=== PATIENT | female | born 1950 | race Caucasian/White ===

== ENCOUNTER → 2017-11-04 14:27 | Outpatient (CLI) | payer MEDICARE, OTHER, SELFPAY ==
[2017-11-02 13:32] VITALS: TEMP 37.2
[2017-11-04 15:28] LABS: Add Manual Diff / Slide Review NO; Basophils Percent Auto 0.9 % (0-2); Eosinophils Percent Auto 1.5 % (2-4); Hematocrit 38.1 % (36-46); Hemoglobin 12.8 g/dL (12.0-16.0); Lymphocytes Percent Auto 16.3 % (25-40); Mean Corpuscular HGB Conc 33.4 % (30-36); Mean Corpuscular Hemoglobin 27.9 PG (26-34); Mean Corpuscular Volume 83.5 fL (80-100); Monocytes Percent Auto 5.4 % (3-14); Neutrophils Absolute Auto 7400 /uL (3000-5900); Neutrophils Percent Auto 75.9 % (50-75); Platelet Count 253 X10^3/uL (150-400); Red Blood Cell Count 4.57 X10^6/uL (4.0-5.2); Red Cell Distribution Width 14.6 % (11.6-14.8); White Blood Cell Count 9.8 X10^3/uL (4.5-11.0)
[2017-11-04 16:10] LABS: Alanine Aminotransferase 33 IU/L (9-52); Albumin 4.4 g/dL (3.5-5.0); Albumin Globulin Ratio 1.3 (1.0-2.8); Alkaline Phosphatase 123 U/L (38-126); Aspartate Aminotransferase 33 IU/L (14-36); BUN Creatinine Ratio 26.3 (6-22); Bilirubin Total 0.7 mg/dL (0.2-1.3); Estimated Glomerular Filt Rate > 60.0 mL/min (>60); Globulin 3.4 g/dL (1.7-4.1); Glucose 133 mg/dL (80-110); HEMOLYSIS < 15 (0-50); Potassium 3.4 mmol/L (3.4-5.1); Sodium 140 mmol/L (137-145); Total Protein 7.8 g/dL (6.3-8.2)
[2017-11-04 17:48] LABS: Carcinoembryonic Antigen 0.9 ng/mL (0.1-3.0)
[2017-11-08 16:00] LABS: Cancer (Carbohydrate) Ag 19-9 194 U/mL (< 34); Cancer Antigen 27.29 94 U/mL (< 38)
--- NOTE | 2017-11-24 09:27 | ONC.NAV ---
Description: T/C-Care Coordination Activity: Called pt to tell her that this DAIRY CONSULTANT faxed an urgent referral request, along with her ONC records, to [facility], and that we requested a call back to confirm when her appointment will be. Offered coping and emotional support, as pt is really struggling with feeling she is not getting adequate and timely f/u and treatment for her cancer. She reports feeling better today, and thanked me for the support and efforts to expedite her care. Plan: DAIRY CONSULTANT will f/u with pt again after she has gone to her consult at [facility].
--- NOTE | 2019-01-02 12:38 | PC.NURSE ---
Patient's called 01/01 asking if patient could receive keytruda here as they are thinking they may not make it on time driving down to [place] for her next keytruda treatment. Appt with Dr. Salas was made and inquiries made with onc pharmacy whether we would be able to obtain the keytruda through their [employer] trial on time for administration on 01/03. As this was too tight for medication delivery and patient would otherwise need to pay for the medication, patient's decided to cancel appointment and try to get to [place] on time for her Tuesday appt there. Appt here was cancelled.
== END ==
PROVIDERS: Family Provider Family Medicine; PCP Family Medicine; Visit Provider Internal Medicine Hematology & Oncology
DX: R16.0 Hepatomegaly, not elsewhere classified (principal)
CPT/HCPCS: 36415; 80053; 82105; 82378; 85025; 86300; 86301

== ENCOUNTER → 2017-11-25 11:35 | Outpatient (CLI) | payer MEDICARE, OTHER, SELFPAY ==
--- NOTE | 2017-11-25 11:37 | DI.CT.S_ITS ---
PROCEDURE: CT CHEST ABD PEL W CON INDICATIONS: Malignant neoplam of liver TECHNIQUE: After the administration of oral and intravenous contrast, 5 mm thick sections acquired from the lung apices to the symphysis. 5 mm coronal and sagittal reformats were performed, with additional 7 mm coronal MIP reformats through the lungs. For radiation dose reduction, the following was used: automated exposure control, adjustment of mA and/or kV according to patient size. COMPARISON: [place], [place], [place] PET CT FUSION SKULL 2 THIGH, 11/16/2017, 13:46. FINDINGS: Image quality: Excellent. CHEST: Lungs and pleura: No acute airspace opacities. No pleural effusions or pneumothorax. Central and peripheral airways appear patent and normal in caliber. Mediastinum: Heart size is normal. No pericardial effusion. No mediastinal or hilar adenopathy by size criteria. Thoracic aorta and central pulmonary arteries are normal in size. Esophagus is normal in caliber. No hiatal hernia. Chest wall: Left-sided port with tip in the SVC. No axillary or supraclavicular adenopathy by size criteria. Thyroid gland is normal. ABDOMEN: Solid organs: Liver shows heterogeneous decreased attenuation compatible with fatty infiltration. Multiple intrahepatic mass lesions show heterogeneous enhancement. Lesions are increased in number compared to prior PET/CT imaging. The largest lesion in the central right lobe is estimated at 8.5 x 10.6 cm in diameter. Lesions in the hepatic dome measure one CM and 2 CM in size. Lesions in the anterior inferior pole of the right lobe measures 3.5 x 4.8 cm and 2.5 x 3.5 cm. Gallbladder is normal. Biliary system is non dilated. Pancreas enhances normally. Spleen is normal in size and enhancement. No adrenal nodules. Kidneys demonstrate normal size and enhancement, without hydronephrosis. Peritoneum and bowel: Bowel loops demonstrate normal wall thickness and caliber. Normal appendix. Colonic diverticulosis without diverticulitis. No free fluid or air. Nodes and vessels: No retroperitoneal or mesenteric adenopathy by size criteria. Aorta and inferior vena cava are normal in size. Miscellaneous: No ventral hernias. PELVIS: Genitourinary: Bladder wall thickness is normal. Uterus and ovaries appear normal. Miscellaneous: No inguinal hernias or adenopathy. Bones: No suspicious bony lesions. No vertebral body compression fractures. IMPRESSION: 1. Multifocal hepatic malignancies compatible with metastatic disease. Possibility of cholangiocarcinoma, multifocal hepatoma or other hepatic pathology can not be excluded. Dictated by: Max Mccormack M.D. on 11/25/2017 at 13:31 Approved by: Max Mccromack M.D. on 11/25/2017 at 13:45
== END ==
PROVIDERS: PCP Family Medicine; Visit Provider Internal Medicine Hematology & Oncology
DX: C22.9 Malignant neoplasm of liver, not specified as primary or secondary (principal)
CPT/HCPCS: 71260; 74177

== ENCOUNTER → 2018-01-25 10:24 | Outpatient (CLI) | payer MEDICARE, OTHER, SELFPAY ==
--- NOTE | 2018-01-25 10:33 | DI.CT.S_ITS ---
PROCEDURE: CT CHEST ABD PEL W CON INDICATIONS: restaging malignant neoplasm of liver TECHNIQUE: After the administration of oral and intravenous contrast, 5 mm thick sections acquired from the lung apices to the symphysis. 5 mm coronal and sagittal reformats were performed, with additional 7 mm coronal MIP reformats through the lungs. For radiation dose reduction, the following was used: automated exposure control, adjustment of mA and/or kV according to patient size. COMPARISON: [facility], [place], [place] FUSION SKULL 2 THIGH, 11/16/2017, 13:46. [facility], [place], CT CHEST ABD PEL W CON, 11/25/2017, 12:49. FINDINGS: Image quality: Excellent. CHEST: Lungs and pleura: No acute airspace opacities. A 2 mm subpleural nodule in the right lower lobe laterally, series 3/image 33, and is unchanged. No pleural effusions or pneumothorax. Central and peripheral airways appear patent and normal in caliber. Mediastinum: Heart size is normal. No pericardial effusion. No mediastinal or hilar adenopathy by size criteria. Thoracic aorta and central pulmonary arteries are normal in size. Esophagus is normal in caliber. No hiatal hernia. Chest wall: No axillary or supraclavicular adenopathy by size criteria. Thyroid gland appears normal. ABDOMEN: Solid organs: Multiple hepatic lesions are identified. The dominant mass in the right lobe of liver is slightly smaller measuring 7.3 x 9.5 cm compared to 8.5 x 10.[address] Just anterior to that is a smaller lesion measuring 1.8 x 2.8 cm now compared to 2.5 x 3.5 cm on prior. Lesion in the inferior pole anteriorly adjacent to the gallbladder measures 2.3 x 3.3 cm compared to 3.5 x 4.8 cm on prior. Most of the lesions appear better circumscribed but still show rim enhancement. Gallbladder appears clear. Biliary system is non dilated. Pancreas enhances normally. Spleen is normal in size and enhancement. No adrenal nodules. Kidneys demonstrate normal size and enhancement, without hydronephrosis. Small, irregular cortical cyst in the lateral margin of the upper pole left kidney is unchanged. Peritoneum and bowel: Bowel loops demonstrate normal wall thickness and caliber. Normal appendix. No free fluid or air. Nodes and vessels: No retroperitoneal or mesenteric adenopathy by size criteria. Atheromatous aorta shows calcifications and mural thrombus without aneurysm. The inferior vena cava is normal in size. Miscellaneous: Periumbilical hernia. PELVIS: Genitourinary: Bladder wall thickness is normal. Uterus appears atrophic. Miscellaneous: No inguinal hernias or adenopathy. Bones: No suspicious bony lesions. No vertebral body compression fractures. IMPRESSION: 1. Numerous intrahepatic mass lesions are stable to slightly smaller in size. No new lesions identified. No apparent adenopathy or remote metastases. 2. Colonic diverticulosis without diverticulitis. 3. Dictated by: Max Mccormack M.D. on 01/25/2018 at 12:36 Approved by: Max Mccormack M.D. on 01/25/2018 at 12:56
--- NOTE | 2018-03-03 09:54 | ONC.NAV ---
Description: Financial Assistance,Transfer of Records/Care Activity: Provided pt a check for reimbursement of the purchase of some hats. Provided a separate check to [facility] patient accounts for $30.00, to pay for an out of pocket co-pay that pt requested assistance with. Will plan to assist pt with her transition back to [place] at the end of this month. Plan to fax her medical records on 03/23 to her new provider.
--- NOTE | 2018-05-10 09:22 | ONC.NAV ---
Description: Financial Assistance Activity: Pt requested to use the rest of her available funds through the [facility] to help make a payment on an [facility] bill. SENIOR TELLER obtained a check for $308.00 and applied this in Patient Accounts. Pt was called by Lulu Peña yesterday and informed that this had been done.
== END ==
PROVIDERS: Family Provider Family Medicine; PCP Family Medicine; Visit Provider Internal Medicine Hematology & Oncology
DX: C22.9 Malignant neoplasm of liver, not specified as primary or secondary (principal); K57.90 Diverticulosis of intestine, part unspecified, without perforation or abscess without bleeding
CPT/HCPCS: 71260; 74177; Q9967

== ENCOUNTER 2018-03-22 10:00 | Oncology outpatient (ONC) | payer MEDICARE, OTHER, SELFPAY ==
[2017-11-02 13:32] VITALS: BP 143/83; PULSE 73; RESP 18; TEMP 37.2
--- NOTE | 2017-11-02 13:40 | ONC.NAV ---
Description: New Pt Intro Activity: Met with pt, her spouse and sister to introduce myself as the Pt Felix/AREA CAPTAIN, offer services card, and establish rapport. Discussed resources and support available, as well as the availability of the [employer], [employer], [facility] and Caregiver Support Group. Encouraged pt to contact me should she need assistance, have questions or need resources once her treatment plan has been established. Plan: F/u next appt.
--- NOTE | 2017-11-02 14:35 | ONC.CONS ---
History of Present Illness - Data of Consult Consult date: 11/02/17 Primary Care Provider: Messi Villagomez MD - Consult Narrative Narrative: Abeba Dean is a 67 year old female HEMATOLOGY/ONCOLOGY CONSULTATION NOTE PATIENT: Eric last month, prompting a visit to urgent care clinic on, Abeba Jeffers : 1950 DATE OF VISIT: 11/02/2017 PCP: ID: Ms. Knight is a 67-year-old woman was seen in consultation for recently diagnosed metastatic adenocarcinoma involving the liver. Status post CT-guided liver biopsy 10/19/2017 in [facility]. HPI: She presents to clinic today accompanied by her Fred and her sister Sandra. [place] in [place] [facility] [facility] and recently lived in [facility]. For the past couple of years she and her have been snow birds they tell me. She has a history of an umbilical hernia and this was causing pain and swelling which prompted a visit to local urgent care clinic. Diagnosed with cellulitis and was hospitalized with CT chest on 10/19/2017 showing hepatomegaly with a large heterogeneous low attenuation liver mass measuring 13.6 x 8.6 cm in the inferior right hepatic lobe. Several small retroperitoneal lymph nodes measuring up to 0.9 cm. Small mediastinal lymph nodes. A 2 mm nodule in the superior segment right lower lobe, nonspecific. No other clear evidence of primary site or additional metastatic involvement. She had lab work drawn. She was seen in consultation by GI, Infectious Disease and hematology oncology. Consultation note on 10/18/[address] Brittany Nassar recommended lab work, markers and biopsy of liver mass. She underwent CT-guided biopsy of the liver on 10/19/2017 with pathology showing metastatic adenocarcinoma, positive for CK7, negative for CK 20, CK 5/6, P 63, TTF 1, CDX2, ER and [place]-8. Differential includes primary adenocarcinoma from the lung, breast or upper GI/pancreatic or biliary origin. Pathologist Dr.Wael George at [facility], #[id number]. . . She was discharged on 10/20/2017 and has returned to this area for further workup and treatment. Here today with her , Fred and sister, Sandra. She denies any abdominal pain or other symptoms at this time. No nausea, bloating, change in bowel habits, melena or hematochezia. No nausea, vomiting or hematemesis. She has no personal history of malignancy. Most recent colonoscopy approximately 3 years ago showed a few polyps, non malignant. Mammogram also about 3 years ago. No new findings on self-breast exam. Former smoker from age [age] approximately, up to 2 pack per day and quit in 1997. Drinks wine on occasion. No history of liver disease, hepatitis, jaundice, pancreatitis. She denies headaches or new neurologic symptoms. She feels quite well now that her hernia and associated cellulitis have resolved. She finds it hard to believe that she has cancer given how well she feels. PMH: Hypertension Hyperlipidemia Former smoker quit 1997. Umbilical hernia. PSH: None. MEDICATION: Aspirin 81 mg daily Hydrochlorothiazide 50 mg daily Losartan 50 mg daily Lovastatin 40 mg daily Metoprolol 50 mg daily Pantoprazole 40 mg daily ALLERGIES: None SOCIAL HISTORY: FAMILY HISTORY: REVIEW OF SYSTEMS: PHYSICAL EXAM: CC: Messi Villagomez MD Patient reports pain?: No - Pain Details Pain Scale Used: Numeric (1 - 10) (0) Home Medications and Allergies Home Medications Medication Instructions Recorded Confirmed Type aspirin 81 mg PO DAILY 11/02/17 11/02/17 History hydrochlorothiazide 50 mg PO DAILY 11/02/17 11/02/17 History losartan 50 mg PO DAILY 11/02/17 11/02/17 History lovastatin 40 mg PO DAILY 11/02/17 11/02/17 History metoprolol tartrate 50 mg PO BID 11/02/17 11/02/17 History pantoprazole 40 mg PO DAILY 11/02/17 11/02/17 History Allergies Allergy/AdvReac Type Severity Reaction Status Date / Time Sulfa (Sulfonamide Allergy Mild DIARHHEA, Unverified 10/12/17 12:24 Antibiotics) N/V [SULFA (SULFONAMIDE UNSURE IF ANTIBIOTICS)] IT WAS SULFA Medical History - Medical, Surgical, Family History Medical History: Medical History (Last Updated 11/02/17 @ 14:34 by Murray Rodriguez MD) Malignant neoplasm of liver, not specified as primary or secondary - Social History Smoking Status: Former smoker Years smoked: 20 Quit Date: 07/04/97 Review of Systems Constitutional: able to conduct usual activities, normal activity level, no weight loss Eyes: no change in vision, no double vision, no discharge Ears, nose, mouth, throat: no headaches, no lightheadedness, no decreased hearing, no epistaxis, no apnea, no dental problems, no gingival bleeding, no sore throat Cardiovascular: no chest pain, no palpitations, no dyspnea on exertion, no orthopnea, no edema, no cyanosis Respiratory: cough, no pain with respirations, no shortness of breath, no wheezing, no stridor, no sputum production, no respiratory infections Gastrointestinal: no change in appetite, no dysphagia, no indigestion, no abdominal pain, no nausea, no vomiting, no hematemesis, no jaundice, no diarrhea, no change in bowel habits Genitourinary: no urgency, no frequency, no dysuria, no hematuria Musculoskeletal: no pain, no swelling, no redness, no weakness, no cramps Integumentary: no rash, no bleeding or bruising, no itching Neurological: no seizures, no paralysis, no tremor, no paresthesias, no memory loss, no speech disturbance, no motor difficulty Psychiatric: no attentional problems, no mood disturbance, no emotional problems, no depression Exam Vital signs: Last Vital Signs Temp 98.9 F 11/02/17 13:32 Pulse 73 11/02/17 13:32 Resp 18 11/02/17 13:32 BP 143/83 H 11/02/17 13:32 - Constitutional no acute distress, cooperative - Routine HEENT Exam Head: Present: normocephalic, atraumatic Eye: Present: EOMI, PERRL, conjunctivae pink. Absent: conjunctival icterus, periorbital swelling, nystagmus, exophthalmos, proptosis ENT: Present: mucous membranes moist, oropharynx clear, dentition normal - Routine Neck Exam Present: supple, full ROM, trachea midline. Absent: carotid bruit, lymphadenopathy, thyromegaly, tenderness, swelling - Routine Chest/Breast/Axilla Exam Chest wall exam standard: Absent: tenderness, mass Breast: Absent: tenderness, induration, mass, swelling Axillae: Absent: lymphadenopathy, mass, tenderness, rashes - Routine Respiratory Exam Present: Clear to auscultation bilaterally. Absent: decreased breath sounds, rales, respiratory distress, rhonchi, stridor, wheezes, crackles - Routine Cardiovascular Exam Present: RRR, S1, S2. Absent: murmur, S3 - Routine Abdominal Exam Present: soft, normoactive bowel sounds. Absent: tenderness, distended, rebound, guarding, organomegaly, wound Palpation/Percussion: Absent: hepatomegaly, splenomegaly - Routine Extremities Exam Present: full ROM. Absent: cyanosis, edema, calf tenderness, tenderness, joint swelling, pallor - Routine Back/Spine Exam Back/Spine: Present: full ROM. Absent: CVA tenderness, paraspinal tenderness - Routine Skin Exam Present: intact, dry. Absent: cyanosis, erythema, pallor, mottling, petechiae, jaundice, gangrene, ecchymosis - Routine Neurological Exam Present: alert, oriented X3, CN II-XII intact, moving all extremities, normal tone, vision grossly intact, hearing grossly intact, normal speech. Absent: sensory deficit, motor deficit, altered mental status, abnormal gait, nystagmus - Routine Psychiatric Exam Present: normal affect, normal thought process, good insight, good judgment Assessment and Plan - Time Spent with Patient IMPRESSION: 1. METASTATIC ADENOCARCINOMA OF LIVER, status post CT-guided liver biopsy 10/19/2017 in [facility]. 2. Small retroperitoneal lymph nodes, 0.9 cm. 3. Former smoker, quit 1997. 4. Umbilical hernia. 5. Colon polyps, non malignant. Colonoscopy approximately 3 years ago by self report. 6. Family history of colon cancer. Also spine in sister, age 23. I reviewed the diagnosis, clinical findings and extensive outside records from [place] including lab, imaging and pathology results with her, Minnie today. Reviewed recommendations regarding further diagnostic workup and treatment options. Findings at this point are most consistent with metastatic adenocarcinoma of unknown primary site. Presentation and immunohistochemistry results point to an upper GI or pancreaticobiliary primary as the most likely primary site. No reported pancreatic mass on outside CT. Consider metastatic cholangiocarcinoma though no pain, jaundice or symptoms of biliary obstruction. Lung and breast are also possible however there is no dominant or suspicious pulmonary mass on outside chest CT and breast exam today is unremarkable. She has no personal history of malignancy. Colonoscopy a few years ago showed non malignant polyps by her report. No other clinical symptoms or findings today to suggest a site of origin. No history of hepatitis-B, hepatitis-C or hepatic cirrhosis. We discussed indications and plan for further imaging to define extent of involvement and treatment plan. She asks about surgery and we discussed indications for primary resection depending on the diagnosis and site of origin. This would be a consideration if this represented metastatic carcinoma of the breast or colon in the absence of extrahepatic involvement. Immunohistochemistry studies performed in [place] do not identify a clear site of origin however. I would recommend further workup with labs and mammogram today. Further imaging with PET/CT and/or diagnostic CT as discussed. I offered referral for consultation and 2nd opinion though she is comfortable with the recommendations are for today and will await return visit to review the result before we decide on need for referral she says. She has no pain or other symptoms at this time and no pain medication is prescribed therefore. PLAN: 1. CBC, CMP, CEA, AFP, CA 19-9, CA 27.29. 2. Screening mammogram, bilateral. 3. PET/CT imaging. 4. Follow up with other providers as planned. 5. Return appointment with me in 1 week to review lab and imaging results. 6. Request outside tissue block and slides for local pathology review. Dictated by Murray Rodriguez MD Medical Oncology and Hematology
--- NOTE | 2017-11-02 15:02 | P.CONONC_ITS ---
History of Present Illness - Data of Consult Consult date: 11/02/17 Primary Care Provider: Messi Villagomez MD - Consult Narrative Narrative: Abeba Dean is a 67 year old female HEMATOLOGY/ONCOLOGY CONSULTATION NOTE PATIENT: Eric last month, prompting a visit to urgent care clinic on, Abeba Jeffers : 1950 DATE OF VISIT: 11/02/2017 PCP: ID: Ms. Knight is a 67-year-old woman was seen in consultation for recently diagnosed metastatic adenocarcinoma involving the liver. Status post CT-guided liver biopsy 10/19/2017 in [facility]. HPI: She presents to clinic today accompanied by her Fred and her sister Sandra. [place] [facility] [place] [facility] and recently lived in [facility]. For the past couple of years she and her have been snow birds they tell me. She has a history of an umbilical hernia and this was causing pain and swelling which prompted a visit to local urgent care clinic. Diagnosed with cellulitis and was hospitalized with CT chest on showing hepatomegaly with a large heterogeneous low attenuation liver mass measuring 13.6 x 8.6 cm in the inferior right hepatic lobe. Several small retroperitoneal lymph nodes measuring up to 0.9 cm. Small mediastinal lymph nodes. A 2 mm nodule in the superior segment right lower lobe, nonspecific. No other clear evidence of primary site or additional metastatic involvement. She had lab work drawn. She was seen in consultation by GI, Infectious Disease and hematology oncology. Consultation note on 10/18/[address] Brittany Nassar recommended lab work, markers and biopsy of liver mass. She underwent CT-guided biopsy of the liver on 10/19/2017 with pathology showing metastatic adenocarcinoma, positive for CK7, negative for CK 20, CK 5/6, P 63, TTF 1, CDX2 , ER and [place]-8. Differential includes primary adenocarcinoma from the lung, breast or upper GI/pancreatic or biliary origin. Pathologist Dr.Wael George at [facility], #[id number]. . . She was discharged on 10/20/2017 and has returned to this area for further workup and treatment. Here today with her , Fred and sister, Sandra. She denies any abdominal pain or other symptoms at this time. No nausea, bloating, change in bowel habits, melena or hematochezia. No nausea, vomiting or hematemesis. She has no personal history of malignancy. Most recent colonoscopy approximately 3 years ago showed a few polyps, non malignant. Mammogram also about 3 years ago. No new findings on self-breast exam. Former smoker from age [age] approximately, up to 2 pack per day and quit in 1997. Drinks wine on occasion. No history of liver disease, hepatitis, jaundice, pancreatitis. She denies headaches or new neurologic symptoms. She feels quite well now that her hernia and associated cellulitis have resolved. She finds it hard to believe that she has cancer given how well she feels. PMH: Hypertension Hyperlipidemia Former smoker quit 1997. Umbilical hernia. PSH: None. MEDICATION: Aspirin 81 mg daily Hydrochlorothiazide 50 mg daily Losartan 50 mg daily Lovastatin 40 mg daily Metoprolol 50 mg daily Pantoprazole 40 mg daily ALLERGIES: None SOCIAL HISTORY: FAMILY HISTORY: REVIEW OF SYSTEMS: PHYSICAL EXAM: CC: Messi Villagomez MD Patient reports pain?: No - Pain Details Pain Scale Used: Numeric (1 - 10) (0) Home Medications and Allergies Home Medications Medication Instructions Recorded Confirmed Type aspirin 81 mg PO DAILY 11/02/17 11/02/17 History hydrochlorothiazide 50 mg PO DAILY 11/02/17 11/02/17 History losartan 50 mg PO DAILY 11/02/17 11/02/17 History lovastatin 40 mg PO DAILY 11/02/17 11/02/17 History metoprolol tartrate 50 mg PO BID 11/02/17 11/02/17 History pantoprazole 40 mg PO DAILY 11/02/17 11/02/17 History Allergies Allergy/AdvReac Type Severity Reaction Status Date / Time Sulfa (Sulfonamide Allergy Mild DIARHHEA, Unverified 10/12/17 12:24 Antibiotics) N/V [SULFA (SULFONAMIDE UNSURE IF ANTIBIOTICS)] IT WAS SULFA Medical History - Medical, Surgical, Family History Medical History: Medical History (Last Updated 11/02/17 @ 14:34 by Murray Rodriguez MD) Malignant neoplasm of liver, not specified as primary or secondary - Social History Smoking Status: Former smoker Years smoked: 20 Quit Date: 07/04/97 Review of Systems Constitutional: able to conduct usual activities, normal activity level, no weight loss Eyes: no change in vision, no double vision, no discharge Ears, nose, mouth, throat: no headaches, no lightheadedness, no decreased hearing, no epistaxis, no apnea, no dental problems, no gingival bleeding, no sore throat Cardiovascular: no chest pain, no palpitations, no dyspnea on exertion, no orthopnea, no edema, no cyanosis Respiratory: cough, no pain with respirations, no shortness of breath, no wheezing, no stridor, no sputum production, no respiratory infections Gastrointestinal: no change in appetite, no dysphagia, no indigestion, no abdominal pain, no nausea, no vomiting, no hematemesis, no jaundice, no diarrhea , no change in bowel habits Genitourinary: no urgency, no frequency, no dysuria, no hematuria Musculoskeletal: no pain, no swelling, no redness, no weakness, no cramps Integumentary: no rash, no bleeding or bruising, no itching Neurological: no seizures, no paralysis, no tremor, no paresthesias, no memory loss, no speech disturbance, no motor difficulty Psychiatric: no attentional problems, no mood disturbance, no emotional problems , no depression Exam Vital signs: Last Vital Signs Temp 98.9 F 11/02/17 13:32 Pulse 73 11/02/17 13:32 Resp 18 11/02/17 13:32 BP 143/83 H 11/02/17 13:32 - Constitutional no acute distress, cooperative - Routine HEENT Exam Head: Present: normocephalic, atraumatic Eye: Present: EOMI, PERRL, conjunctivae pink. Absent: conjunctival icterus, periorbital swelling, nystagmus, exophthalmos, proptosis ENT: Present: mucous membranes moist, oropharynx clear, dentition normal - Routine Neck Exam Present: supple, full ROM, trachea midline. Absent: carotid bruit, lymphadenopathy, thyromegaly, tenderness, swelling - Routine Chest/Breast/Axilla Exam Chest wall exam standard: Absent: tenderness, mass Breast: Absent: tenderness, induration, mass, swelling Axillae: Absent: lymphadenopathy, mass, tenderness, rashes - Routine Respiratory Exam Present: Clear to auscultation bilaterally. Absent: decreased breath sounds, rales, respiratory distress, rhonchi, stridor, wheezes, crackles - Routine Cardiovascular Exam Present: RRR, S1, S2. Absent: murmur, S3 - Routine Abdominal Exam Present: soft, normoactive bowel sounds. Absent: tenderness, distended, rebound , guarding, organomegaly, wound Palpation/Percussion: Absent: hepatomegaly, splenomegaly - Routine Extremities Exam Present: full ROM. Absent: cyanosis, edema, calf tenderness, tenderness, joint swelling, pallor - Routine Back/Spine Exam Back/Spine: Present: full ROM. Absent: CVA tenderness, paraspinal tenderness - Routine Skin Exam Present: intact, dry. Absent: cyanosis, erythema, pallor, mottling, petechiae, jaundice, gangrene, ecchymosis - Routine Neurological Exam Present: alert, oriented X3, CN II-XII intact, moving all extremities, normal tone, vision grossly intact, hearing grossly intact, normal speech. Absent: sensory deficit, motor deficit, altered mental status, abnormal gait, nystagmus - Routine Psychiatric Exam Present: normal affect, normal thought process, good insight, good judgment Assessment and Plan - Time Spent with Patient IMPRESSION: 1. METASTATIC ADENOCARCINOMA OF LIVER, status post CT-guided liver biopsy 10/19 in [facility]. 2. Small retroperitoneal lymph nodes, 0.9 cm. 3. Former smoker, quit 1997. 4. Umbilical hernia. 5. Colon polyps, non malignant. Colonoscopy approximately 3 years ago by self report. 6. Family history of colon cancer. Also spine in sister, age 23. I reviewed the diagnosis, clinical findings and extensive outside records from [place] including lab, imaging and pathology results with her, Minnie today. Reviewed recommendations regarding further diagnostic workup and treatment options. Findings at this point are most consistent with metastatic adenocarcinoma of unknown primary site. Presentation and immunohistochemistry results point to an upper GI or pancreaticobiliary primary as the most likely primary site. No reported pancreatic mass on outside CT. Consider metastatic cholangiocarcinoma though no pain, jaundice or symptoms of biliary obstruction. Lung and breast are also possible however there is no dominant or suspicious pulmonary mass on outside chest CT and breast exam today is unremarkable. She has no personal history of malignancy. Colonoscopy a few years ago showed non malignant polyps by her report. No other clinical symptoms or findings today to suggest a site of origin. No history of hepatitis-B, hepatitis-C or hepatic cirrhosis. We discussed indications and plan for further imaging to define extent of involvement and treatment plan. She asks about surgery and we discussed indications for primary resection depending on the diagnosis and site of origin. This would be a consideration if this represented metastatic carcinoma of the breast or colon in the absence of extrahepatic involvement. Immunohistochemistry studies performed in [place] do not identify a clear site of origin however. I would recommend further workup with labs and mammogram today. Further imaging with PET/CT and/or diagnostic CT as discussed. I offered referral for consultation and 2nd opinion though she is comfortable with the recommendations are for today and will await return visit to review the result before we decide on need for referral she says. She has no pain or other symptoms at this time and no pain medication is prescribed therefore. PLAN: 1. CBC, CMP, CEA, AFP, CA 19-9, CA 27.29. 2. Screening mammogram, bilateral. 3. PET/CT imaging. 4. Follow up with other providers as planned. 5. Return appointment with me in 1 week to review lab and imaging results. 6. Request outside tissue block and slides for local pathology review. Dictated by Murray Rodriguez MD Medical Oncology and Hematology
--- NOTE | 2017-11-23 17:35 | ONC.PN ---
Assessment and Plan - Time Spent with Patient IMPRESSION: 1. Metastatic adenocarcinoma of the liver, status post CT-guided liver biopsy October 19, 2017 in [place], [place]. 2. Former smoker, quit in 1997. 3. Colon polyps, non malignant with most recent colonoscopy approximately 3 years ago. 4. Family history of colon cancer. Also sister with cancer involving the spine who at age 23. I reviewed lab results as well as PET/CT imaging from 11/16/2017 with her and her family today. Lab work shows mildly elevated glucose as well as AST/ALT. CA 19-9 and CA 27.29 are elevated with normal CEA and AFP. PET/CT shows abnormal FDG uptake associated with the hepatic masses seen on prior CT. Otherwise normal appearing pancreas, no adrenal nodules, gallbladder unremarkable with normal-appearing spleen, kidneys and bowel structures. No abnormal masses, adenopathy or FDG uptake seen in the chest or neck. Pathology results from [place] suggest differential including upper GI, pancreaticobiliary or other primary site. Markers for lung and breast were negative though cannot be definitively excluded. Mammogram last fall and current CT do not identify evident primary in the breast or lung. Primary treatment would be with systemic chemotherapy given the extent in size of hepatic metastases. She would not be an ideal candidate for ablated therapy given the findings as well as small retroperitoneal nodes seen on prior CT imaging. I do not have access to her previous CT images from [place] today. It may be useful to repeat diagnostic CT of the abdomen and pelvis for restaging and baseline to assess disease response. Regarding choice of treatment, several potential options including empiric therapy based on presentation and likely primary site of origin verses gene expression profiling with [facility] [place] or similar to look for further evidence of a primary site of origin as well as to seek actionable mutations in her treatment program. Empiric chemotherapy directed at the most likely site of origin in the upper GI or pancreaticobiliary region utilizing gemcitabine based program possibly in combination with capecitabine, docetaxel, as well as FOLFOX and others. No symptoms that would suggest gastric primary. Consider HER2 testing of biopsy. She does not otherwise fit into a clear treatment subgroup such as metastatic breast cancer from unknown primary site with axillary adenopathy or possible ovarian primary presenting with carcinomatosis. We will also need to check on any potential clinical trial treatment options which she could receive at our clinic in [facility]. We reviewed numerous other questions and related concerns including treatment logistics, scheduling, IV access, Port-A-Cath placement, laboratory monitoring, disease response assessment, restaging imaging studies, role for surgical resection of metastatic disease, palliative radiation therapy and others. She actually is living closer to our clinic in [facility] and would like to see if she can receive treatment there she says. Discussed referral for 2nd opinion and we will assist her in this so that it can be obtained expeditiously as she anticipate starting treatment soon. PLAN: 1. Meet with infusion nurse and clinic social studies teacher today. 2. CT chest/abdomen/pelvis prior to start of treatment. 3. Referral to [facility] for consultation and treatment recommendations. 4. Referral for Port-A-Cath placement. 5. Return appointment with me next week to review and finalize treatment plan. 6. Follow up with other providers as planned. 7. Request biopsy slides and blocks for review and further testing as noted above. DICTATED BY GILMAR WHITTEN MD MEDICAL ONCOLOGY AND HEMATOLOGY PN -Subjective Interval history: MEDICAL ONCOLOGY/HEMATOLOGY PROGRESS NOTE DATE OF SERVICE: November 23, 2017 NAME: Abeba Dean DATE OF : 1950 PCP: IDENTIFICATION: Ms. Dean is a 67-year-old woman with metastatic adenocarcinoma of the liver who returns to review lab and imaging studies. INTERVAL HISTORY: She returns in routine follow-up visit today accompanied by her Fred, sister Sandra and [id number]. Here to review labs and PET/CT results. She notes some increase in fatigue and other symptoms. She continues to denies significant abdominal pain, nausea or vomiting. No new chest pain, cough, dyspnea, bone pain, headache or new neurologic symptoms. She is a former smoker from age 17 to age 37, up to 2 packs per day and quit in 1997. She drinks wine on occasion. No history of liver disease, hepatitis, pancreatitis. Most recent colonoscopy about 3 years ago. PAST HISTORY/PRESENTATION: HPI: She has a history of an umbilical hernia and this was causing pain and swelling which prompted a visit to local urgent care clinic. Diagnosed with cellulitis and was hospitalized with CT chest on 10/19/2017 showing hepatomegaly with a large heterogeneous low attenuation liver mass measuring 13.6 x 8.6 cm in the inferior right hepatic lobe. Several small retroperitoneal lymph nodes measuring up to 0.9 cm. Small mediastinal lymph nodes. A 2 mm nodule in the superior segment right lower lobe, nonspecific. No other clear evidence of primary site or additional metastatic involvement. She had lab work drawn. She was seen in consultation by GI, Infectious Disease and hematology oncology. Consultation note on 10/18/[address] Brittany Nassar recommended lab work, markers and biopsy of liver mass. She underwent CT-guided biopsy of the liver on 10/19/2017 with pathology showing metastatic adenocarcinoma, positive for CK7, negative for CK 20, CK 5/6, P 63, TTF 1, CDX2, ER and [place]-8. Differential includes primary adenocarcinoma from the lung, breast or upper GI/pancreatic or biliary origin. Pathologist Dr.Wael George at [facility], #[id number]. . . She was discharged on 10/20/2017 and has returned to this area for further workup and treatment. Here today with her , Fred and sister, Sandra. She denies any abdominal pain or other symptoms at this time. No nausea, bloating, change in bowel habits, melena or hematochezia. No nausea, vomiting or hematemesis. She has no personal history of malignancy. Most recent colonoscopy approximately 3 years ago showed a few polyps, non malignant. Mammogram also about 3 years ago. No new findings on self-breast exam. Former smoker from age [age] approximately, up to 2 pack per day and quit in 1997. Drinks wine on occasion. No history of liver disease, hepatitis, jaundice, pancreatitis. She denies headaches or new neurologic symptoms. She feels quite well now that her hernia and associated cellulitis have resolved. She finds it hard to believe that she has cancer given how well she feels. PAST MEDICAL HISTORY: HYPERTENSION, HYPERLIPIDEMIA, FORMER SMOKER QUIT IN 1997, UMBILICAL HERNIA. - Patient Self-Reported Symptoms SR ears, nose, mouth, throat issues: Nose bleeds SR respiratory issues: Cough SR Musculoskeletal issues: Muscle weakness - Additional ROS Additional ROS: REVIEW OF SYSTEMS General: No fever, night sweats or weight loss. HEENT: No headache, vision change or dysphagia. Respiratory: Negative. Cardiac: No chest pain, PND or orthopnea. GI: As above. : Stable. Musculoskeletal: Negative. Neurologic: Negative. Results - Imaging Additional studies: Procedures Replacement of Right Knee Joint with Synthetic Substitute, Cemented, Open Approach (05/05/15) Home Medications and Allergies Home Medications Medication Instructions Recorded Confirmed Type aspirin 81 mg PO DAILY 11/02/17 11/02/17 History hydrochlorothiazide 50 mg PO DAILY 11/02/17 11/02/17 History losartan 50 mg PO DAILY 11/02/17 11/02/17 History lovastatin 40 mg PO DAILY 11/02/17 11/02/17 History metoprolol tartrate 50 mg PO BID 11/02/17 11/02/17 History pantoprazole 40 mg PO DAILY 11/02/17 11/02/17 History Allergies Allergy/AdvReac Type Severity Reaction Status Date / Time Sulfa (Sulfonamide Allergy Mild DIARHHEA, Unverified 10/12/17 12:24 Antibiotics) N/V [SULFA (SULFONAMIDE UNSURE IF ANTIBIOTICS)] IT WAS SULFA Exam Vital signs: Last Vital Signs Temp 98.9 F 11/02/17 13:32 Pulse 73 11/02/17 13:32 Resp 18 11/02/17 13:32 BP 143/83 H 11/02/17 13:32 - Constitutional positive no acute distress, positive cooperative - Routine HEENT Exam Head: Present: normocephalic, atraumatic. Absent: cushingoid faces Eye: Present: EOMI, PERRL. Absent: conjunctival icterus, scleral injection, periorbital ecchymosis, periorbital swelling - Routine Neck Exam Present: supple, full ROM - Routine Respiratory Exam Absent: accessory muscle use, respiratory distress - Routine Extremities Exam Absent: edema - Routine Skin Exam Present: intact. Absent: jaundice, rash - Routine Neurological Exam Present: alert, oriented X3, moving all extremities, normal speech. Absent: altered mental status, abnormal gait - Routine Psychiatric Exam Present: normal affect, normal thought process, good judgment, anxious
--- NOTE | 2017-11-23 17:49 | P.PNONC_ITS ---
Assessment and Plan - Time Spent with Patient IMPRESSION: 1. Metastatic adenocarcinoma of the liver, status post CT-guided liver biopsy October 19, 2017 in [place], [place]. 2. Former smoker, quit in 1997. 3. Colon polyps, non malignant with most recent colonoscopy approximately 3 years ago. 4. Family history of colon cancer. Also sister with cancer involving the spine who at age 23. I reviewed lab results as well as PET/CT imaging from 11/16/2017 with her and her family today. Lab work shows mildly elevated glucose as well as AST/ALT. CA 19-9 and CA 27.29 are elevated with normal CEA and AFP. PET/CT shows abnormal FDG uptake associated with the hepatic masses seen on prior CT. Otherwise normal appearing pancreas, no adrenal nodules, gallbladder unremarkable with normal-appearing spleen, kidneys and bowel structures. No abnormal masses, adenopathy or FDG uptake seen in the chest or neck. Pathology results from [place] suggest differential including upper GI, pancreaticobiliary or other primary site. Markers for lung and breast were negative though cannot be definitively excluded. Mammogram last fall and current CT do not identify evident primary in the breast or lung. Primary treatment would be with systemic chemotherapy given the extent in size of hepatic metastases. She would not be an ideal candidate for ablated therapy given the findings as well as small retroperitoneal nodes seen on prior CT imaging. I do not have access to her previous CT images from [place] today. It may be useful to repeat diagnostic CT of the abdomen and pelvis for restaging and baseline to assess disease response. Regarding choice of treatment, several potential options including empiric therapy based on presentation and likely primary site of origin verses gene expression profiling with [facility] or similar to look for further evidence of a primary site of origin as well as to seek actionable mutations in her treatment program. Empiric chemotherapy directed at the most likely site of origin in the upper GI or pancreaticobiliary region utilizing gemcitabine based program possibly in combination with capecitabine, docetaxel, as well as FOLFOX and others. No symptoms that would suggest gastric primary. Consider HER2 testing of biopsy. She does not otherwise fit into a clear treatment subgroup such as metastatic breast cancer from unknown primary site with axillary adenopathy or possible ovarian primary presenting with carcinomatosis. We will also need to check on any potential clinical trial treatment options which she could receive at our clinic in [facility]. We reviewed numerous other questions and related concerns including treatment logistics, scheduling, IV access, Port-A-Cath placement, laboratory monitoring, disease response assessment, restaging imaging studies, role for surgical resection of metastatic disease, palliative radiation therapy and others. She actually is living closer to our clinic in [facility] and would like to see if she can receive treatment there she says. Discussed referral for 2nd opinion and we will assist her in this so that it can be obtained expeditiously as she anticipate starting treatment soon. PLAN: 1. Meet with infusion nurse and clinic oncology social work today. 2. CT chest/abdomen/pelvis prior to start of treatment. 3. Referral to [facility] for consultation and treatment recommendations. 4. Referral for Port-A-Cath placement. 5. Return appointment with me next week to review and finalize treatment plan. 6. Follow up with other providers as planned. 7. Request biopsy slides and blocks for review and further testing as noted above. DICTATED BY GILMAR WHITTEN MD MEDICAL ONCOLOGY AND HEMATOLOGY PN -Subjective Interval history: MEDICAL ONCOLOGY/HEMATOLOGY PROGRESS NOTE DATE OF SERVICE: November 23, 2017 NAME: Abeba Dean DATE OF : 1950 PCP: IDENTIFICATION: Ms. Dean is a 67-year-old woman with metastatic adenocarcinoma of the liver who returns to review lab and imaging studies. INTERVAL HISTORY: She returns in routine follow-up visit today accompanied by her Fred, sister Sandra and [id number]. Here to review labs and PET/CT results. She notes some increase in fatigue and other symptoms. She continues to denies significant abdominal pain, nausea or vomiting. No new chest pain, cough, dyspnea, bone pain, headache or new neurologic symptoms. She is a former smoker from age 17 to age 37, up to 2 packs per day and quit in 1997. She drinks wine on occasion. No history of liver disease, hepatitis, pancreatitis. Most recent colonoscopy about 3 years ago. PAST HISTORY/PRESENTATION: HPI: She has a history of an umbilical hernia and this was causing pain and swelling which prompted a visit to local urgent care clinic. Diagnosed with cellulitis and was hospitalized with CT chest on 10/19/2017 showing hepatomegaly with a large heterogeneous low attenuation liver mass measuring 13.6 x 8.6 cm in the inferior right hepatic lobe. Several small retroperitoneal lymph nodes measuring up to 0.9 cm. Small mediastinal lymph nodes. A 2 mm nodule in the superior segment right lower lobe, nonspecific. No other clear evidence of primary site or additional metastatic involvement. She had lab work drawn. She was seen in consultation by GI, Infectious Disease and hematology oncology. Consultation note on 10/18/[address] Brittany Nassar recommended lab work, markers and biopsy of liver mass. She underwent CT-guided biopsy of the liver on 10/19/2017 with pathology showing metastatic adenocarcinoma, positive for CK7, negative for CK 20, CK 5/6, P 63, TTF 1, CDX2 , ER and [place]-8. Differential includes primary adenocarcinoma from the lung, breast or upper GI/pancreatic or biliary origin. Pathologist Dr.Wael George at [facility], #[id number]. . . She was discharged on 10/20/2017 and has returned to this area for further workup and treatment. Here today with her , Fred and sister, Sandra. She denies any abdominal pain or other symptoms at this time. No nausea, bloating, change in bowel habits, melena or hematochezia. No nausea, vomiting or hematemesis. She has no personal history of malignancy. Most recent colonoscopy approximately 3 years ago showed a few polyps, non malignant. Mammogram also about 3 years ago. No new findings on self-breast exam. Former smoker from age [age] approximately, up to 2 pack per day and quit in 1997. Drinks wine on occasion. No history of liver disease, hepatitis, jaundice, pancreatitis. She denies headaches or new neurologic symptoms. She feels quite well now that her hernia and associated cellulitis have resolved. She finds it hard to believe that she has cancer given how well she feels. PAST MEDICAL HISTORY: HYPERTENSION, HYPERLIPIDEMIA, FORMER SMOKER QUIT IN 1997, UMBILICAL HERNIA. - Patient Self-Reported Symptoms SR ears, nose, mouth, throat issues: Nose bleeds SR respiratory issues: Cough SR Musculoskeletal issues: Muscle weakness - Additional ROS Additional ROS: REVIEW OF SYSTEMS General: No fever, night sweats or weight loss. HEENT: No headache, vision change or dysphagia. Respiratory: Negative. Cardiac: No chest pain, PND or orthopnea. GI: As above. : Stable. Musculoskeletal: Negative. Neurologic: Negative. Results - Imaging Additional studies: Procedures Replacement of Right Knee Joint with Synthetic Substitute, Cemented, Open Approach (05/05/15) Home Medications and Allergies Home Medications Medication Instructions Recorded Confirmed Type aspirin 81 mg PO DAILY 11/02/17 11/02/17 History hydrochlorothiazide 50 mg PO DAILY 11/02/17 11/02/17 History losartan 50 mg PO DAILY 11/02/17 11/02/17 History lovastatin 40 mg PO DAILY 11/02/17 11/02/17 History metoprolol tartrate 50 mg PO BID 11/02/17 11/02/17 History pantoprazole 40 mg PO DAILY 11/02/17 11/02/17 History Allergies Allergy/AdvReac Type Severity Reaction Status Date / Time Sulfa (Sulfonamide Allergy Mild DIARHHEA, Unverified 10/12/17 12:24 Antibiotics) N/V [SULFA (SULFONAMIDE UNSURE IF ANTIBIOTICS)] IT WAS SULFA Exam Vital signs: Last Vital Signs Temp 98.9 F 11/02/17 13:32 Pulse 73 11/02/17 13:32 Resp 18 11/02/17 13:32 BP 143/83 H 11/02/17 13:32 - Constitutional positive no acute distress, positive cooperative - Routine HEENT Exam Head: Present: normocephalic, atraumatic. Absent: cushingoid faces Eye: Present: EOMI, PERRL. Absent: conjunctival icterus, scleral injection, periorbital ecchymosis, periorbital swelling - Routine Neck Exam Present: supple, full ROM - Routine Respiratory Exam Absent: accessory muscle use, respiratory distress - Routine Extremities Exam Absent: edema - Routine Skin Exam Present: intact. Absent: jaundice, rash - Routine Neurological Exam Present: alert, oriented X3, moving all extremities, normal speech. Absent: altered mental status, abnormal gait - Routine Psychiatric Exam Present: normal affect, normal thought process, good judgment, anxious
[2017-11-25 12:26] LABS: BUN Creatinine Ratio 22.9 (6-22); Estimated Glomerular Filt Rate > 60.0 mL/min (>60)
--- NOTE | 2017-11-29 09:06 | PM.CHEMOCOU ---
Chemotherapy Counseling - History of present illness History of present illness: Abeba is a 67-year-old female who presents today for chemotherapy teaching, she has recently been diagnosed with metastatic adenocarcinoma involving the liver, unknown primary. She has a history of umbilical hernia, which developed pain and swelling. The patient presented to a local urgent care clinic. She then presented to [facility] diagnosed with cellulitis hospitalized, chest CT October 19, 2017 demonstrated hepatomegaly with large heterogeneous low attenuation liver mass measuring 13.6 x 8.6 cm in the inferior right hepatic lobe. Additionally small mediastinal lymph nodes were identified, a 2 mm nodule in the superior segment right lower lobe, nonspecific. No other clear evidence of primary site or additional metastatic involvement. CT-guided biopsy of liver on October 19, 2017 demonstrated pathology identifying metastatic adenocarcinoma, positive for CK7, negative for CK 20, CK 5 and 6, P 63, TTF 1, CDX2, ER, [place]-8. Differentials include primary adenocarcinoma from the lung, breast, or upper GI, pancreatic or biliary origin. Abeba understands today we do not have a clear primary cancer. She is understandable frustrated, stating repeatedly Nobody is telling me anything. I emphasized a diagnosis will evolve and it does happen that we cannot always identify a clear primary and these pts are treated quite successfully. She had repeat CT late last week, has an appot with Dr Rodriguez to review, She has appt with liver specialist at [facility] next week. In regards to chmo teaching today i reviewed general chemo guidelines as well as side effects and when to call the clinic. We did not discuss specific chemo treatment of regime, anticipating this will be identified in the very near future. She does verbalize understanding this appears to be metastatic in nature and therefore not cureable. The goal is to slow disease progression while maintaining quality of life. Abeba had many questions about radiation and surgery , I informed her we just do not have enough information at this point to discuss if these interventions will be required. Abeba has no changes to report. She does continue to have some dull right side discomfort. She reports having some dry heaves intermittently without associated nausea. She reports this has occurred about 2 mornings the past week when she is drinking her coffee. She admits to feeling tired. No cough, fever, chills. No unexplained bleeding or bruising. Appetite has been stable. - General New Chemotherapy Patient: Yes Treatment Plan Reviewed: no, pending . - Chemotherapy Counseling Chemotherapy Counseling: Chemotherapy Education: Abeba Dean provided written information on all topics discussed. Her Fred accompanied her. Written materials printed from [email or web address] and www.[email or web address].org. Abeba was given an overview of cancer and mechanism of action of cancer cells, that cancer is caused by cells that are dividing rapidly, and out of control. Traditional chemotherapy works by targeting the fast dividing cells and killing them. Chemotherapy affecting healthy cells dividing quickly causes many of the side effects (hair follicles, bone marrow, mucus membranes). Overview of blood cell functions of white cells to fight infection, red cells to carry oxygen, and platelets to stop bleeding was discussed, and that when bone marrow is affected by chemo, there is a decrease in production of these cells. Home care of the patient following chemotherapy was discussed. Body fluids will be contaminated for 48 hours following treatment, and any body fluids handled by caregivers should be handled wearing gloves, surfaces need to be cleaned with soap and water, any soiled linens or clothing need to be washed separately in hot water, toilet lid should be closed when flushing, person cleaning the toilet should wear gloves. How chemotherapy is administered by the RN???s in the clinic, that orders are double checked by pharmacy and checked again by two RN???s prior to administration. Nurses wear protective gear to prevent exposure to them of the chemotherapy agents which can also cause cancer. Cancer center information discussed and written hand out provided listing on-call oncologist available weekends and after hours triage R.N. hours and infusion room guide. New patient binder given to Abeba, which includes clinic names, phone numbers, clinic information, calendar, cancer glossary, and list of resources. Handout on advanced directives Common side effects of chemotherapy were discussed with self care tips for prevention of complications. Information also provided in writing. These included: Low blood counts (anemia, thrombocytopenia, neutropenia) Hair loss (alopecia) Nausea and vomiting Decreased appetite Loss of fertility Diarrhea Mouth sores Constipation Peripheral neuropathy Chemo brain/cognitive changes Fatigue Instructions on when to call your healthcare team or on-call physician immediately: Fever of 100.4 or higher, chills, any signs of infection Shortness of breath, wheezing, difficulty breathing, closing of throat, swelling of face, hives (signs of possible allergic reaction) Chest pain, fast heart beat or feelings of a different heart rhythm Swelling of an extremity with or without pain signs of stroke Instructions on when to call your healthcare team within the next 24 hours Nausea that interferes with ability to eat and unrelieved with prescribed medication Diarrhea (4-6 episodes in 24 hour period). Unusual bleeding or bruising Black or tarry stools, or blood in your stools Blood in the urine pain or burning with urination Extreme fatigue (unable to perform self-care activities) Mouth sores or sore areas in your mouth Bad headache Dizziness or lightheadedness Large weight gain over a short period of time General self-care tips while undergoing treatment discussed were as follows. Written materials were provided covering in detail and additional self care tips. Drink at least 2-3 quarts (8-10 glasses) of no-caffeinated beverages daily unless you are instructed otherwise and empty your bladder frequently Report any concerning symptoms to your healthcare team Avoid crowds and sick people, wash your hands frequently Use a soft bristled toothbrush, rinse three times a day with 1 tsp baking soda or 1 tsp salt mixed with warm water Avoid any mouthwashes or oral and skin products containing alcohol or fragrances Use electric razors to avoid cutting yourself Avoid contact sports or activities that could cause head injury or bleeding Avoid sun exposure, wear SPF 15 or higher, wear protective clothing Get plenty of rest, meter your activities Maintain good nutrition Avoid alcoholic beverages Attend your scheduled appointments and lab draws Treatment regimen not reviewed today, awaiting further diagnostics with treatment plan. Additionally, Abeba was provided with literature regarding the diagnosis of metastatic adenocarcinoma involving the liver, unknown primary. Abeba instructed to read literature at home. Keep a list of questions which we are happy to go over at future visits. For any urgent questions please feel free to call any time. 45 minutes spent in direct face to face cunsultation with the pt and her . 10 minutes spent in review of records, 5 minutes in dictation. - Response to Teaching Response to Teaching: Verbalizes Understanding, Reinforcement Needed - Referrals Referrals: [facility] (unknown primary,further diagnostics pending. Pt meeting with ), Patient Navigator
--- NOTE | 2017-11-29 09:10 | P.CHEMO_ITS ---
Chemotherapy Counseling - History of present illness History of present illness: Abeba is a 67-year-old female who presents today for chemotherapy teaching, she has recently been diagnosed with metastatic adenocarcinoma involving the liver, unknown primary. She has a history of umbilical hernia, which developed pain and swelling. The patient presented to a local urgent care clinic. She then presented to [facility] diagnosed with cellulitis hospitalized, chest CT October 19, 2017 demonstrated hepatomegaly with large heterogeneous low attenuation liver mass measuring 13.6 x 8.6 cm in the inferior right hepatic lobe. Additionally small mediastinal lymph nodes were identified, a 2 mm nodule in the superior segment right lower lobe, nonspecific. No other clear evidence of primary site or additional metastatic involvement. CT-guided biopsy of liver on October 19, 2017 demonstrated pathology identifying metastatic adenocarcinoma, positive for CK7, negative for CK 20, CK 5 and 6, P 63, TTF 1, CDX2, ER, [place]-8. Differentials include primary adenocarcinoma from the lung, breast, or upper GI, pancreatic or biliary origin. Abeba understands today we do not have a clear primary cancer. She is understandable frustrated, stating repeatedly Nobody is telling me anything. I emphasized a diagnosis will evolve and it does happen that we cannot always identify a clear primary and these pts are treated quite successfully. She had repeat CT late last week, has an appot with Dr Rodriguez to review, She has appt with liver specialist at [facility] next week. In regards to chmo teaching today i reviewed general chemo guidelines as well as side effects and when to call the clinic. We did not discuss specific chemo treatment of regime, anticipating this will be identified in the very near future. She does verbalize understanding this appears to be metastatic in nature and therefore not cureable. The goal is to slow disease progression while maintaining quality of life. Abeba had many questions about radiation and surgery , I informed her we just do not have enough information at this point to discuss if these interventions will be required. Abeba has no changes to report. She does continue to have some dull right side discomfort. She reports having some dry heaves intermittently without associated nausea. She reports this has occurred about 2 mornings the past week when she is drinking her coffee. She admits to feeling tired. No cough, fever, chills. No unexplained bleeding or bruising. Appetite has been stable. - General New Chemotherapy Patient: Yes Treatment Plan Reviewed: no, pending . - Chemotherapy Counseling Chemotherapy Counseling: Chemotherapy Education: Abeba Dean provided written information on all topics discussed. Her Fred accompanied her. Written materials printed from www.[facility].com and www.[employer].org. Abeba was given an overview of cancer and mechanism of action of cancer cells, that cancer is caused by cells that are dividing rapidly, and out of control. Traditional chemotherapy works by targeting the fast dividing cells and killing them. Chemotherapy affecting healthy cells dividing quickly causes many of the side effects (hair follicles, bone marrow, mucus membranes). Overview of blood cell functions of white cells to fight infection, red cells to carry oxygen, and platelets to stop bleeding was discussed, and that when bone marrow is affected by chemo, there is a decrease in production of these cells. Home care of the patient following chemotherapy was discussed. Body fluids will be contaminated for 48 hours following treatment, and any body fluids handled by caregivers should be handled wearing gloves, surfaces need to be cleaned with soap and water, any soiled linens or clothing need to be washed separately in hot water, toilet lid should be closed when flushing, person cleaning the toilet should wear gloves. How chemotherapy is administered by the RN?s in the clinic, that orders are double checked by pharmacy and checked again by two RN?s prior to administration. Nurses wear protective gear to prevent exposure to them of the chemotherapy agents which can also cause cancer. Cancer center information discussed and written hand out provided listing on- call oncologist available weekends and after hours triage R.N. hours and infusion room guide. New patient binder given to Abeba, which includes clinic names, phone numbers, clinic information, calendar, cancer glossary, and list of resources. Handout on advanced directives Common side effects of chemotherapy were discussed with self care tips for prevention of complications. Information also provided in writing. These included: Low blood counts (anemia, thrombocytopenia, neutropenia) Hair loss (alopecia) Nausea and vomiting Decreased appetite Loss of fertility Diarrhea Mouth sores Constipation Peripheral neuropathy Chemo brain/cognitive changes Fatigue Instructions on when to call your healthcare team or on-call physician immediately: Fever of 100.4 or higher, chills, any signs of infection Shortness of breath, wheezing, difficulty breathing, closing of throat, swelling of face, hives (signs of possible allergic reaction) Chest pain, fast heart beat or feelings of a different heart rhythm Swelling of an extremity with or without pain signs of stroke Instructions on when to call your healthcare team within the next 24 hours Nausea that interferes with ability to eat and unrelieved with prescribed medication Diarrhea (4-6 episodes in 24 hour period). Unusual bleeding or bruising Black or tarry stools, or blood in your stools Blood in the urine pain or burning with urination Extreme fatigue (unable to perform self-care activities) Mouth sores or sore areas in your mouth Bad headache Dizziness or lightheadedness Large weight gain over a short period of time General self-care tips while undergoing treatment discussed were as follows. Written materials were provided covering in detail and additional self care tips. Drink at least 2-3 quarts (8-10 glasses) of no-caffeinated beverages daily unless you are instructed otherwise and empty your bladder frequently Report any concerning symptoms to your healthcare team Avoid crowds and sick people, wash your hands frequently Use a soft bristled toothbrush, rinse three times a day with 1 tsp baking soda or 1 tsp salt mixed with warm water Avoid any mouthwashes or oral and skin products containing alcohol or fragrances Use electric razors to avoid cutting yourself Avoid contact sports or activities that could cause head injury or bleeding Avoid sun exposure, wear SPF 15 or higher, wear protective clothing Get plenty of rest, meter your activities Maintain good nutrition Avoid alcoholic beverages Attend your scheduled appointments and lab draws Treatment regimen not reviewed today, awaiting further diagnostics with treatment plan. Additionally, Abeba was provided with literature regarding the diagnosis of metastatic adenocarcinoma involving the liver, unknown primary. Abeba instructed to read literature at home. Keep a list of questions which we are happy to go over at future visits. For any urgent questions please feel free to call any time. 45 minutes spent in direct face to face cunsultation with the pt and her . 10 minutes spent in review of records, 5 minutes in dictation. - Response to Teaching Response to Teaching: Verbalizes Understanding, Reinforcement Needed - Referrals Referrals: [facility] (unknown primary,further diagnostics pending. Pt meeting with ), Patient Navigator
--- NOTE | 2017-11-29 11:56 | ONC.NAV ---
Description: Check-in Activity: Met with pt after her chemo teaching session. Pt expresses feeling much more relieved, is coping well now that she is on track to begin chemo, has had her port placed, and completed her CT last week. She is set to go to [facility] on 12/12 for her second opinion/consultation visit. Assisted pt with choosing a Chemo Quilt to take home with her. No further needs expressed at this time. Plan: Ongoing support and assistance as needed.
[2017-11-30 09:17] VITALS: BP 143/68; PULSE 70; RESP 15; TEMP 36.5; O2SAT 100
--- NOTE | 2017-11-30 09:22 | ONC.PN ---
Assessment and Plan - Time Spent with Patient IMPRESSION: 1. Metastatic adenocarcinoma of the liver, status post CT-guided liver biopsy October 19, 2017 in [place], [place]. 2. Former smoker, quit in 1997. 3. Colon polyps, non malignant with most recent colonoscopy approximately 3 years ago by history. 4. Family history of colon cancer. Sister with cancer involving the spine who at age 23. No further information available. I reviewed the findings, differential diagnosis and recommendations regarding treatment in detail with her and her today. Recent staging with PET/CT on 11/16/2017 showed . Lab work shows elevated CA 19-9 and CA 27.29 with normal CEA and AFP. No additional sites of involvement or clearly evident primary site on imaging studies. I reviewed her recent dedicated/diagnostic CT of the chest abdomen pelvis from 11/25/2017 which shows multiple intrahepatic mass lesions with heterogeneous enhancement, increased in number compared with prior PET/CT imaging. The largest lesion in the central right lobe estimated at 8.5 x 10.6 cm in diameter. Gallbladder appears normal, biliary system is nondilated, pancreas enhances normally, spleen is normal in size and enhancement. No adrenal nodules. Kidneys without mass lesion or evident hydronephrosis. No pulmonary findings or mediastinal adenopathy. Radiographic differential includes cholangiocarcinoma, multifocal hepatoma, etc. Pathology differential from the biopsy suggest most likely site of origin in the upper GI, pancreaticobiliary or other primary site. No symptoms to suggest gastric primary. Would consider staining biopsy for HER2. She has no personal history of hepatic cirrhosis, alcoholism or hepatitis. Recent lab work confirms negative serologies for hepatitis-B and hepatitis-C. Consider additional molecular profiling studies, [facility], etc. She is anxious to begin treatment. I would recommend proceeding with empiric chemotherapy directed at metastatic adenocarcinoma of unknown primary site. Regimen selected based on clinical impression of potential cholangiocarcinoma or other GI primary site as noted above. Of the options available would favor treatment with gemcitabine and cisplatin. I reviewed side effects and potential toxicities with her today which include but are not limited to fatigue, malaise, anorexia, nausea, vomiting, myelosuppression with potential neutropenia and risk for sepsis or , anemia potential need for transfusions, thrombocytopenia and risk for hemorrhage or stroke, neuropathy, nephropathy and renal insufficiency or potential kidney failure with need for dialysis, electrolyte disturbance, hypomagnesemia, rash, phlebitis, thromboembolic complications including DVT, pulmonary embolus or stroke, high frequency hearing loss, fever or rash from gemcitabine, headaches, constipation, alopecia and other concerns. Review treatment logistics with chemotherapy on day 1 and 8 of a 21 day cycle. Also potential need for filgrastim support and transfusion support as discussed above. She voices understanding of the side effects and risks discussed, except some and consents to treatment as outlined. Total time spent today 40 min with more than 50% of time spent in counseling and review of treatment plan. PLAN: 1. Orders for cycle 1, day 1 gemcitabine 1000 milligram/meter sq and cisplatin 25 milligram/meter sq today. Return on day 8 for same. Cycle length 21 days. 2. Standard premedication. 3. Filgrastim support. 4. Mouth rinses and neutropenic precautions. 5. Prescriptions for ondansetron and prochlorperazine to [facility] pharmacy in [place]. 6. CBC weekly. CMP, magnesium, CA 19-9 every 3 weeks. 7. [facility], [address] Bridges as scheduled. 8. Return appointment with mt in 3 weeks. 9. Anticipate a repeat CT after 2-3 months of treatment. 10. Follow up with other providers as planned. 11. Transfuse RBCs or platelets if indicated. 12. Routine Port-A-Cath care. DICTATED BY GILMAR WHITTEN MD MEDICAL ONCOLOGY AND HEMATOLOGY PN -Subjective Interval history: MEDICAL ONCOLOGY/HEMATOLOGY PROGRESS NOTE DATE OF SERVICE: November 23, 2017 NAME: Abeba Dean DATE OF : 1950 PCP: IDENTIFICATION: Ms. Dean is a 67-year-old woman with metastatic adenocarcinoma of the liver who returns to review plan and to begin treatment. INTERVAL HISTORY: She returns in routine follow-up visit today accompanied by her , Fred. She denies new symptoms though she did have some right upper quadrant pain yesterday morning. Worse with inspiration. It ultimately passed and she has not been bothered since then. She also has had some trouble with her heartburn. She does take pantoprazole for this. Denies any new areas of pain or discomfort. No nausea, vomiting, cough, dyspnea, fever or chills. No rash or bruising. No new neurologic symptoms. She was seen earlier this week for general chemotherapy teaching. Anticipate starting treatment today. She has consultation pending at [facility]. She and Fred are currently living in their motor home near the [facility] on [address]. They also park in [place] some days. PAST HISTORY (FROM PRIOR NOTE): She is a former smoker from age 17 to age 37, up to 2 packs per day and quit in 1997. She drinks wine on occasion. No history of liver disease, hepatitis, pancreatitis. Most recent colonoscopy about 3 years ago. PAST HISTORY/PRESENTATION: HPI: She has a history of an umbilical hernia and this was causing pain and swelling which prompted a visit to local urgent care clinic. Diagnosed with cellulitis and was hospitalized with CT chest on 10/19/2017 showing hepatomegaly with a large heterogeneous low attenuation liver mass measuring 13.6 x 8.6 cm in the inferior right hepatic lobe. Several small retroperitoneal lymph nodes measuring up to 0.9 cm. Small mediastinal lymph nodes. A 2 mm nodule in the superior segment right lower lobe, nonspecific. No other clear evidence of primary site or additional metastatic involvement. She had lab work drawn. She was seen in consultation by GI, Infectious Disease and hematology oncology. Consultation note on 10/18/[address] Brittany Nassar recommended lab work, markers and biopsy of liver mass. She underwent CT-guided biopsy of the liver on 10/19/2017 with pathology showing metastatic adenocarcinoma, positive for CK7, negative for CK 20, CK 5/6, P 63, TTF 1, CDX2, ER and [place]-8. Differential includes primary adenocarcinoma from the lung, breast or upper GI/pancreatic or biliary origin. Pathologist Dr.Wael George at [facility], #[id number]. . . She was discharged on 10/20/2017 and has returned to this area for further workup and treatment. Here today with her , Fred and sister, Sandra. She denies any abdominal pain or other symptoms at this time. No nausea, bloating, change in bowel habits, melena or hematochezia. No nausea, vomiting or hematemesis. She has no personal history of malignancy. Most recent colonoscopy approximately 3 years ago showed a few polyps, non malignant. Mammogram also about 3 years ago. No new findings on self-breast exam. Former smoker from age [age] approximately, up to 2 pack per day and quit in 1997. Drinks wine on occasion. No history of liver disease, hepatitis, jaundice, pancreatitis. She denies headaches or new neurologic symptoms. She feels quite well now that her hernia and associated cellulitis have resolved. She finds it hard to believe that she has cancer given how well she feels. PAST MEDICAL HISTORY: HYPERTENSION, HYPERLIPIDEMIA, FORMER SMOKER QUIT IN 1997, UMBILICAL HERNIA. - Patient Self-Reported Symptoms SR ears, nose, mouth, throat issues: Nose bleeds SR respiratory issues: Cough SR Musculoskeletal issues: Muscle weakness - Additional ROS Additional ROS: REVIEW OF SYSTEMS: General: No fever or chills. HEENT: No diplopia, epistaxis, dental pain or dysphagia. Respiratory: As above. Cardiac: No PND or orthopnea. GI: As above. : Stable. Musculoskeletal: As above. Neurologic: Negative. Results - Labs 11/30/17 10:33 11/30/17 10:33 Laboratory Last Values BUN 16.0 mg/dL (7-17) 11/25/17 12:12 Creatinine 0.70 mg/dL (0.52-1.04) 11/25/17 12:12 Estimated GFR > 60.0 mL/min (>60) 11/25/17 12:12 BUN/Creatinine Ratio 22.9 (6-22) H 11/25/17 12:12 - Imaging Additional studies: Procedures Replacement of Right Knee Joint with Synthetic Substitute, Cemented, Open Approach (05/05/15) Home Medications and Allergies Home Medications Medication Instructions Recorded Confirmed Type aspirin 81 mg PO DAILY 11/02/17 11/30/17 History hydrochlorothiazide 50 mg PO DAILY 11/02/17 11/30/17 History losartan 50 mg PO DAILY 11/02/17 11/30/17 History lovastatin 40 mg PO DAILY 11/02/17 11/30/17 History metoprolol tartrate 50 mg PO BID 11/02/17 11/30/17 History pantoprazole 40 mg PO DAILY 11/02/17 11/30/17 History hydrocodone-acetaminophen [[place]] See Label Instructions .ROUTE 11/24/17 11/30/17 Rx .COMPLEX PRN #14 tab ondansetron [Zofran ODT] 8 mg PO Q8H #30 tab 11/30/17 Rx prochlorperazine maleate 10 mg PO Q6-8H PRN #30 tab 11/30/17 Rx [Compazine] Allergies Allergy/AdvReac Type Severity Reaction Status Date / Time Sulfa (Sulfonamide Allergy Mild DIARHHEA, Verified 11/24/17 14:21 Antibiotics) N/V [SULFA (SULFONAMIDE UNSURE IF ANTIBIOTICS)] IT WAS SULFA Exam Vital signs: Last Vital Signs Temp 97.7 F 11/30/17 09:17 Pulse 70 11/30/17 09:17 Resp 15 11/30/17 09:17 BP 143/68 H 11/30/17 09:17 Pulse Ox 100 11/30/17 09:17 - Constitutional positive mild distress, positive cooperative Comments: Mildly anxious and tearful at times today but generally appears comfortable, cooperative and not agitated or overly anxious. - Routine HEENT Exam Head: Present: normocephalic, atraumatic Eye: Present: EOMI, PERRL. Absent: conjunctival icterus, periorbital ecchymosis, periorbital swelling ENT: Present: mucous membranes moist, oropharynx clear - Routine Neck Exam Present: full ROM. Absent: lymphadenopathy, thyromegaly - Routine Respiratory Exam Absent: accessory muscle use, respiratory distress - Routine Extremities Exam Absent: cyanosis, clubbing, edema, joint swelling - Routine Neurological Exam Present: alert, oriented X3, moving all extremities. Absent: altered mental status, abnormal gait - Routine Psychiatric Exam Present: normal affect, normal thought process, cooperative, good judgment
--- NOTE | 2017-11-30 09:47 | P.PNONC_ITS ---
Assessment and Plan - Time Spent with Patient IMPRESSION: 1. Metastatic adenocarcinoma of the liver, status post CT-guided liver biopsy October 19, 2017 in [place], [place]. 2. Former smoker, quit in 1997. 3. Colon polyps, non malignant with most recent colonoscopy approximately 3 years ago by history. 4. Family history of colon cancer. Sister with cancer involving the spine who at age 23. No further information available. I reviewed the findings, differential diagnosis and recommendations regarding treatment in detail with her and her today. Recent staging with PET/CT on 11/16/2017 showed . Lab work shows elevated CA 19-9 and CA 27.29 with normal CEA and AFP. No additional sites of involvement or clearly evident primary site on imaging studies. I reviewed her recent dedicated/diagnostic CT of the chest abdomen pelvis from 11/25/2017 which shows multiple intrahepatic mass lesions with heterogeneous enhancement, increased in number compared with prior PET/CT imaging. The largest lesion in the central right lobe estimated at 8.5 x 10.6 cm in diameter. Gallbladder appears normal, biliary system is nondilated, pancreas enhances normally, spleen is normal in size and enhancement. No adrenal nodules. Kidneys without mass lesion or evident hydronephrosis. No pulmonary findings or mediastinal adenopathy. Radiographic differential includes cholangiocarcinoma, multifocal hepatoma, etc. Pathology differential from the biopsy suggest most likely site of origin in the upper GI , pancreaticobiliary or other primary site. No symptoms to suggest gastric primary. Would consider staining biopsy for HER2. She has no personal history of hepatic cirrhosis, alcoholism or hepatitis. Recent lab work confirms negative serologies for hepatitis-B and hepatitis-C. Consider additional molecular profiling studies, [facility], etc. She is anxious to begin treatment. I would recommend proceeding with empiric chemotherapy directed at metastatic adenocarcinoma of unknown primary site. Regimen selected based on clinical impression of potential cholangiocarcinoma or other GI primary site as noted above. Of the options available would favor treatment with gemcitabine and cisplatin. I reviewed side effects and potential toxicities with her today which include but are not limited to fatigue , malaise, anorexia, nausea, vomiting, myelosuppression with potential neutropenia and risk for sepsis or , anemia potential need for transfusions , thrombocytopenia and risk for hemorrhage or stroke, neuropathy, nephropathy and renal insufficiency or potential kidney failure with need for dialysis, electrolyte disturbance, hypomagnesemia, rash, phlebitis, thromboembolic complications including DVT, pulmonary embolus or stroke, high frequency hearing loss, fever or rash from gemcitabine, headaches, constipation, alopecia and other concerns. Review treatment logistics with chemotherapy on day 1 and 8 of a 21 day cycle. Also potential need for filgrastim support and transfusion support as discussed above. She voices understanding of the side effects and risks discussed, except some and consents to treatment as outlined. Total time spent today 40 min with more than 50% of time spent in counseling and review of treatment plan. PLAN: 1. Orders for cycle 1, day 1 gemcitabine 1000 milligram/meter sq and cisplatin 25 milligram/meter sq today. Return on day 8 for same. Cycle length 21 days. 2. Standard premedication. 3. Filgrastim support. 4. Mouth rinses and neutropenic precautions. 5. Prescriptions for ondansetron and prochlorperazine to [facility] pharmacy in [place]. 6. CBC weekly. CMP, magnesium, CA 19-9 every 3 weeks. 7. Follow-up [facility] December 12, [address] Bridges as scheduled. 8. Return appointment with al in 3 weeks. 9. Anticipate a repeat CT after 2-3 months of treatment. 10. Follow up with other providers as planned. 11. Transfuse RBCs or platelets if indicated. 12. Routine Port-A-Cath care. DICTATED BY GILMAR WHITTEN MD MEDICAL ONCOLOGY AND HEMATOLOGY PN -Subjective Interval history: MEDICAL ONCOLOGY/HEMATOLOGY PROGRESS NOTE DATE OF SERVICE: November 23, 2017 NAME: Abeba Dean DATE OF : 1950 PCP: IDENTIFICATION: Ms. Dean is a 67-year-old woman with metastatic adenocarcinoma of the liver who returns to review plan and to begin treatment. INTERVAL HISTORY: She returns in routine follow-up visit today accompanied by her , Fred. She denies new symptoms though she did have some right upper quadrant pain yesterday morning. Worse with inspiration. It ultimately passed and she has not been bothered since then. She also has had some trouble with her heartburn. She does take pantoprazole for this. Denies any new areas of pain or discomfort. No nausea, vomiting, cough, dyspnea, fever or chills. No rash or bruising. No new neurologic symptoms. She was seen earlier this week for general chemotherapy teaching. Anticipate starting treatment today. She has consultation pending at [facility] on December 12. She and Fred are currently living in their motor home near the [facility] on [address]. They also park in [place] some days. PAST HISTORY (FROM PRIOR NOTE): She is a former smoker from age 17 to age 37, up to 2 packs per day and quit in 1997. She drinks wine on occasion. No history of liver disease, hepatitis, pancreatitis. Most recent colonoscopy about 3 years ago. PAST HISTORY/PRESENTATION: HPI: She has a history of an umbilical hernia and this was causing pain and swelling which prompted a visit to local urgent care clinic. Diagnosed with cellulitis and was hospitalized with CT chest on 10/19/2017 showing hepatomegaly with a large heterogeneous low attenuation liver mass measuring 13.6 x 8.6 cm in the inferior right hepatic lobe. Several small retroperitoneal lymph nodes measuring up to 0.9 cm. Small mediastinal lymph nodes. A 2 mm nodule in the superior segment right lower lobe, nonspecific. No other clear evidence of primary site or additional metastatic involvement. She had lab work drawn. She was seen in consultation by GI, Infectious Disease and hematology oncology. Consultation note on 10/18/[address] Brittany Nassar recommended lab work, markers and biopsy of liver mass. She underwent CT-guided biopsy of the liver on 10/19/2017 with pathology showing metastatic adenocarcinoma, positive for CK7, negative for CK 20, CK 5/6, P 63, TTF 1, CDX2 , ER and [place]-8. Differential includes primary adenocarcinoma from the lung, breast or upper GI/pancreatic or biliary origin. Pathologist Dr.Wael George at [facility], #[id number]. . . She was discharged on 10/20/2017 and has returned to this area for further workup and treatment. Here today with her , Fred and sister, Sandra. She denies any abdominal pain or other symptoms at this time. No nausea, bloating, change in bowel habits, melena or hematochezia. No nausea, vomiting or hematemesis. She has no personal history of malignancy. Most recent colonoscopy approximately 3 years ago showed a few polyps, non malignant. Mammogram also about 3 years ago. No new findings on self-breast exam. Former smoker from age [age] approximately, up to 2 pack per day and quit in 1997. Drinks wine on occasion. No history of liver disease, hepatitis, jaundice, pancreatitis. She denies headaches or new neurologic symptoms. She feels quite well now that her hernia and associated cellulitis have resolved. She finds it hard to believe that she has cancer given how well she feels. PAST MEDICAL HISTORY: HYPERTENSION, HYPERLIPIDEMIA, FORMER SMOKER QUIT IN 1997, UMBILICAL HERNIA. - Patient Self-Reported Symptoms SR ears, nose, mouth, throat issues: Nose bleeds SR respiratory issues: Cough SR Musculoskeletal issues: Muscle weakness - Additional ROS Additional ROS: REVIEW OF SYSTEMS: General: No fever or chills. HEENT: No diplopia, epistaxis, dental pain or dysphagia. Respiratory: As above. Cardiac: No PND or orthopnea. GI: As above. : Stable. Musculoskeletal: As above. Neurologic: Negative. Results - Labs 11/30/17 10:33 11/30/17 10:33 Laboratory Last Values BUN 16.0 mg/dL (7-17) 11/25/17 12:12 Creatinine 0.70 mg/dL (0.52-1.04) 11/25/17 12:12 Estimated GFR > 60.0 mL/min (>60) 11/25/17 12:12 BUN/Creatinine Ratio 22.9 (6-22) H 11/25/17 12:12 - Imaging Additional studies: Procedures Replacement of Right Knee Joint with Synthetic Substitute, Cemented, Open Approach (05/05/15) Home Medications and Allergies Home Medications Medication Instructions Recorded Confirmed Type aspirin 81 mg PO DAILY 11/02/17 11/30/17 History hydrochlorothiazide 50 mg PO DAILY 11/02/17 11/30/17 History losartan 50 mg PO DAILY 11/02/17 11/30/17 History lovastatin 40 mg PO DAILY 11/02/17 11/30/17 History metoprolol tartrate 50 mg PO BID 11/02/17 11/30/17 History pantoprazole 40 mg PO DAILY 11/02/17 11/30/17 History hydrocodone-acetaminophen [[place]] See Label Instructions .ROUTE 11/24/17 Rx .COMPLEX PRN #14 tab ondansetron [Zofran ODT] 8 mg PO Q8H #30 tab 11/30/17 Rx prochlorperazine maleate 10 mg PO Q6-8H PRN #30 tab 11/30/17 Rx [Compazine] Allergies Allergy/AdvReac Type Severity Reaction Status Date / Time Sulfa (Sulfonamide Allergy Mild DIARHHEA, Verified 11/24/17 14:21 Antibiotics) N/V [SULFA (SULFONAMIDE UNSURE IF ANTIBIOTICS)] IT WAS SULFA Exam Vital signs: Last Vital Signs Temp 97.7 F 11/30/17 09:17 Pulse 70 11/30/17 09:17 Resp 15 11/30/17 09:17 BP 143/68 H 11/30/17 09:17 Pulse Ox 100 11/30/17 09:17 - Constitutional positive mild distress, positive cooperative Comments: Mildly anxious and tearful at times today but generally appears comfortable, cooperative and not agitated or overly anxious. - Routine HEENT Exam Head: Present: normocephalic, atraumatic Eye: Present: EOMI, PERRL. Absent: conjunctival icterus, periorbital ecchymosis , periorbital swelling ENT: Present: mucous membranes moist, oropharynx clear - Routine Neck Exam Present: full ROM. Absent: lymphadenopathy, thyromegaly - Routine Respiratory Exam Absent: accessory muscle use, respiratory distress - Routine Extremities Exam Absent: cyanosis, clubbing, edema, joint swelling - Routine Neurological Exam Present: alert, oriented X3, moving all extremities. Absent: altered mental status, abnormal gait - Routine Psychiatric Exam Present: normal affect, normal thought process, cooperative, good judgment
[2017-11-30] MEDS: SODIUM CHLORIDE 0.9% 1,000 ML 500 ML IV (10:37)
[2017-11-30 10:43] LABS: Add Manual Diff / Slide Review NO; Basophils Percent Auto 0.8 % (0-2); Eosinophils Percent Auto 1.4 % (2-4); Hematocrit 37.6 % (36-46); Hemoglobin 12.6 g/dL (12.0-16.0); Lymphocytes Percent Auto 16.1 % (25-40); Mean Corpuscular HGB Conc 33.5 % (30-36); Mean Corpuscular Hemoglobin 27.9 PG (26-34); Neutrophils Absolute Auto 7400 /uL (3000-5900); Neutrophils Percent Auto 72.7 % (50-75); Platelet Count 237 X10^3/uL (150-400); Red Blood Cell Count 4.53 X10^6/uL (4.0-5.2); Red Cell Distribution Width 15.6 % (11.6-14.8); White Blood Cell Count 10.1 X10^3/uL (4.5-11.0)
[2017-11-30] MEDS: LORazepam 0.5 MG TABLET PO (10:49)
[2017-11-30 11:02] LABS: Alanine Aminotransferase 29 IU/L (9-52); Albumin 4.4 g/dL (3.5-5.0); Albumin Globulin Ratio 1.3 (1.0-2.8); Alkaline Phosphatase 132 U/L (38-126); Aspartate Aminotransferase 45 IU/L (14-36); BUN Creatinine Ratio 28.9 (6-22); Bilirubin Total 1.2 mg/dL (0.2-1.3); Blood Urea Nitrogen 26 mg/dL (7-17); Calcium 9.8 mg/dL (8.4-10.2); Carbon Dioxide 29 mmol/L (22-32); Chloride 97 mmol/L (98-107); Estimated Glomerular Filt Rate > 60.0 mL/min (>60); Globulin 3.5 g/dL (1.7-4.1); Glucose 109 mg/dL (80-110); HEMOLYSIS < 15 (0-50); Magnesium 1.5 mg/dL (1.6-2.3); Potassium 3.8 mmol/L (3.4-5.1); Sodium 138 mmol/L (137-145); Total Protein 7.9 g/dL (6.3-8.2)
[2017-11-30] MEDS: DEXAMETHASONE 12 MG in SODIUM CHLORIDE 0.9% 50 ML 212 ML IV (11:30)
[2017-11-30] MEDS: FOSAPREPITANT 150 MG in SODIUM CHLORIDE 0.9% 150 ML 300 ML IV (11:42)
[2017-11-30] MEDS: ONDANSETRON 16 MG in SODIUM CHLORIDE 0.9% 50 ML 232 ML IV (12:42)
[2017-11-30] MEDS: SODIUM CHLORIDE 0.9% IV (13:19)
[2017-11-30] MEDS: GEMCITABINE IV (13:19)
[2017-11-30] MEDS: MANNITOL IV (14:10)
[2017-11-30] MEDS: [UNRECOGNIZED DRUG - OTHER] IV (14:10)
[2017-11-30] MEDS: CISPLATIN IV (14:10)
[2017-11-30] MEDS: POTASSIUM CHLORIDE IV (14:10)
[2017-12-02 16:59] LABS: Cancer Antigen 27.29 108 U/mL (< 38)
[2017-12-03 15:15] LABS: Cancer (Carbohydrate) Ag 19-9 257 U/mL (< 34)
[2017-12-07 10:19] LABS: Add Manual Diff / Slide Review NO; Basophils Percent Auto 0.7 % (0-2); Eosinophils Percent Auto 0.5 % (2-4); Hematocrit 37.3 % (36-46); Hemoglobin 12.4 g/dL (12.0-16.0); Lymphocytes Percent Auto 21.6 % (25-40); Mean Corpuscular HGB Conc 33.3 % (30-36); Mean Corpuscular Hemoglobin 27.7 PG (26-34); Mean Corpuscular Volume 83.3 fL (80-100); Monocytes Percent Auto 6.4 % (3-14); Neutrophils Absolute Auto 5300 /uL (3000-5900); Neutrophils Percent Auto 70.8 % (50-75); Platelet Count 217 X10^3/uL (150-400); Red Blood Cell Count 4.47 X10^6/uL (4.0-5.2); White Blood Cell Count 7.5 X10^3/uL (4.5-11.0)
[2017-12-07 10:33] LABS: Alanine Aminotransferase 36 IU/L (9-52); Albumin 4.3 g/dL (3.5-5.0); Albumin Globulin Ratio 1.3 (1.0-2.8); Alkaline Phosphatase 147 U/L (38-126); Aspartate Aminotransferase 32 IU/L (14-36); BUN Creatinine Ratio 37.5 (6-22); Bilirubin Total 0.5 mg/dL (0.2-1.3); Blood Urea Nitrogen 30 mg/dL (7-17); Calcium 9.6 mg/dL (8.4-10.2); Carbon Dioxide 26 mmol/L (22-32); Chloride 98 mmol/L (98-107); Estimated Glomerular Filt Rate > 60.0 mL/min (>60); Globulin 3.3 g/dL (1.7-4.1); Glucose 146 mg/dL (80-110); HEMOLYSIS < 15 (0-50); Magnesium 1.3 mg/dL (1.6-2.3); Potassium 3.8 mmol/L (3.4-5.1); Sodium 138 mmol/L (137-145); Total Protein 7.6 g/dL (6.3-8.2)
[2017-12-07 10:37] VITALS: BP 141/70; PULSE 67; RESP 18; TEMP 36.6; O2SAT 97
[2017-12-07] MEDS: SODIUM CHLORIDE 0.9% 1,000 ML 500 ML IV (10:59)
[2017-12-07] MEDS: MAGNESIUM SULFATE 1 GM in SODIUM CHLORIDE 0.9% 100 ML 102 ML IV (11:27)
[2017-12-07] MEDS: DEXAMETHASONE 12 MG in SODIUM CHLORIDE 0.9% 50 ML 212 ML IV (11:52)
[2017-12-07] MEDS: LORazepam 0.5 MG TABLET PO (11:57)
[2017-12-07] MEDS: FOSAPREPITANT 150 MG in SODIUM CHLORIDE 0.9% 150 ML 300 ML IV (12:33)
[2017-12-07] MEDS: ONDANSETRON 16 MG in SODIUM CHLORIDE 0.9% 50 ML 232 ML IV (13:15)
[2017-12-07] MEDS: SODIUM CHLORIDE 0.9% IV (13:42)
[2017-12-07] MEDS: GEMCITABINE IV (13:42)
[2017-12-07] MEDS: MANNITOL IV (14:21)
[2017-12-07] MEDS: POTASSIUM CHLORIDE IV (14:21)
[2017-12-07] MEDS: [UNRECOGNIZED DRUG - OTHER] IV (14:21)
[2017-12-07] MEDS: CISPLATIN IV (14:21)
[2017-12-16 14:35] LABS: Add Manual Diff / Slide Review NO; Basophils Percent Auto 0.7 % (0-2); Eosinophils Percent Auto 1.1 % (2-4); Hematocrit 35.9 % (36-46); Lymphocytes Percent Auto 28.6 % (25-40); Mean Corpuscular HGB Conc 33.3 % (30-36); Mean Corpuscular Hemoglobin 27.8 PG (26-34); Mean Corpuscular Volume 83.5 fL (80-100); Monocytes Percent Auto 9.5 % (3-14); Neutrophils Absolute Auto 3700 /uL (3000-5900); Neutrophils Percent Auto 60.1 % (50-75); Platelet Count 133 X10^3/uL (150-400); Red Cell Distribution Width 14.9 % (11.6-14.8); White Blood Cell Count 6.1 X10^3/uL (4.5-11.0)
[2017-12-16 14:43] LABS: Alanine Aminotransferase 34 IU/L (9-52); Albumin 4.2 g/dL (3.5-5.0); Albumin Globulin Ratio 1.2 (1.0-2.8); Alkaline Phosphatase 113 U/L (38-126); Aspartate Aminotransferase 35 IU/L (14-36); BUN Creatinine Ratio 35.7 (6-22); Bilirubin Total 0.8 mg/dL (0.2-1.3); Blood Urea Nitrogen 25 mg/dL (7-17); Calcium 9.3 mg/dL (8.4-10.2); Carbon Dioxide 25 mmol/L (22-32); Chloride 99 mmol/L (98-107); Estimated Glomerular Filt Rate > 60.0 mL/min (>60); Globulin 3.5 g/dL (1.7-4.1); Glucose 107 mg/dL (80-110); Magnesium 1.4 mg/dL (1.6-2.3); Sodium 137 mmol/L (137-145); Total Protein 7.7 g/dL (6.3-8.2)
[2017-12-16 14:44] LABS: HEMOLYSIS 113 (0-50)
[2017-12-16 14:45] LABS: Potassium 4.2 mmol/L (3.4-5.1)
--- NOTE | 2017-12-21 09:03 | ONC.PN ---
Assessment and Plan - Time Spent with Patient IMPRESSION: 1. Metastatic adenocarcinoma of the liver, status post CT-guided liver biopsy on October 19, 2017 in [place], [place]. 2. Nausea, secondary to chemotherapy. Mild and results with oral medication. 3. Hypomagnesemia. 4. Anemia. 5. Former smoker, quit in 1997. 6. Colon polyps, non malignant with most recent colonoscopy approximately 3 years ago. 7. Family history of colon cancer. Also a sister with cancer involving the spine who at age 23. 8. Anxiety She returns today for day 1 of cycle 2, cisplatin and gemcitabine. She tolerated the 1st cycle very well. Unfortunately she has not yet had her CBC, CMP or markers obtained so she will need to see the nurses immediately following our visit. Anticipate treatment today pending results of her lab work. We also reviewed her recent consult appointment at [facility] with Dr. Bridges. Her impression is also that this represents cholangiocarcinoma and she has recommended the same treatment with gemcitabine and cisplatin. Repeat imaging with CT in 2 months as well as other monitoring. She also discussed genomic tumor profiling and agrees with sending pathology specimen for this. She also has recommended genetic testing/counseling. I reviewed these and other issues with Ms. Dean today. She voices understanding and is comfortable with the plan. She will be due for CT in late January (prior CT November 25, 2017). PLAN: 1. CBC, CMP, magnesium, CA 19-9 and CA 27.29 today. Previous CEA and AFP were normal. 2. Cycle 2, day 1 cisplatin and gemcitabine today pending results. (gemcitabine 1000 milligram/meter sq and cisplatin 25 milligram/meter sq today. Return on day 8 for same. Cycle length 21 days) 3. IV magnesium pending results. 4. Mouth rinses and neutropenic precautions. 5. Transfuse RBCs or platelets if indicated. 6. Filgrastim support as indicated. 7. Antiemetics, stool softeners another symptomatic care reviewed reviewed. 8. Repeat CT after 2 months of treatment. Most recent CT November 25, 2017. 9. CBC, CMP and magnesium weekly. CA 19-9 and CA 27.29 prior to start of each cycle. 10. Return appointment with [facility] in 3 weeks. 11. Referral for genetic counseling 12. Request outside tissue block from her biopsy in [place] to be sent for genomic tumor profiling ([facility]). DICTATED BY GILMAR WHITTEN MD MEDICAL ONCOLOGY AND HEMATOLOGY PN -Subjective Interval history: MEDICAL ONCOLOGY/HEMATOLOGY PROGRESS NOTE DATE OF SERVICE: December 21, 2017 NAME: Abeba Dean DATE OF : 1950 PCP: IDENTIFICATION: Ms. Dean is a 67-year-old woman with metastatic adenocarcinoma of the liver who returns today for treatment. INTERVAL HISTORY: She returns for treatment today. Here with her , Fred. She started chemotherapy with cisplatin and gemcitabine on November 30, 2017 with treatment on day 1, day 8 of a 21 day cycle. She tolerated treatment quite well. She has noted some fatigue as well as some minor nausea which resolved with oral medication. She feels ready to begin her 2nd cycle today. She has not yet had her lab work drawn. She does have a port. No new symptoms associated with this. She denies fever, chills, productive cough or dyspnea. No headaches or new neurologic symptoms. PAST HISTORY (FROM PRIOR NOTE): She is a former smoker from age 17 to age 37, up to 2 packs per day and quit in 1997. She drinks wine on occasion. No history of liver disease, hepatitis, pancreatitis. Most recent colonoscopy about 3 years ago. PAST HISTORY/PRESENTATION: HPI: She has a history of an umbilical hernia and this was causing pain and swelling which prompted a visit to local urgent care clinic. Diagnosed with cellulitis and was hospitalized with CT chest on 10/19/2017 showing hepatomegaly with a large heterogeneous low attenuation liver mass measuring 13.6 x 8.6 cm in the inferior right hepatic lobe. Several small retroperitoneal lymph nodes measuring up to 0.9 cm. Small mediastinal lymph nodes. A 2 mm nodule in the superior segment right lower lobe, nonspecific. No other clear evidence of primary site or additional metastatic involvement. She had lab work drawn. She was seen in consultation by GI, Infectious Disease and hematology oncology. Consultation note on 10/18/[address] Brittany Nassar recommended lab work, markers and biopsy of liver mass. She underwent CT-guided biopsy of the liver on 10/19/2017 with pathology showing metastatic adenocarcinoma, positive for CK7, negative for CK 20, CK 5/6, P 63, TTF 1, CDX2, ER and [place]-8. Differential includes primary adenocarcinoma from the lung, breast or upper GI/pancreatic or biliary origin. Pathologist Dr.Wael George at [facility], #[id number]. . . She was discharged on 10/20/2017 and has returned to this area for further workup and treatment. Here today with her , Fred and sister, Sandra. She denies any abdominal pain or other symptoms at this time. No nausea, bloating, change in bowel habits, melena or hematochezia. No nausea, vomiting or hematemesis. She has no personal history of malignancy. Most recent colonoscopy approximately 3 years ago showed a few polyps, non malignant. Mammogram also about 3 years ago. No new findings on self-breast exam. Former smoker from age [age] approximately, up to 2 pack per day and quit in 1997. Drinks wine on occasion. No history of liver disease, hepatitis, jaundice, pancreatitis. She denies headaches or new neurologic symptoms. She feels quite well now that her hernia and associated cellulitis have resolved. She finds it hard to believe that she has cancer given how well she feels. PAST MEDICAL HISTORY: HYPERTENSION, HYPERLIPIDEMIA, FORMER SMOKER QUIT IN 1997, UMBILICAL HERNIA. - Patient Self-Reported Symptoms SR ears, nose, mouth, throat issues: Nose bleeds SR respiratory issues: Cough SR Musculoskeletal issues: Muscle weakness - Additional ROS All systems PM: reviewed and no additional remarkable complaints except as stated Additional ROS: Review of systems: General: No fever or chills. HEENT: No headaches, vision change, epistaxis or dysphagia. Respiratory: Negative. Cardiac: No chest pain, PND or orthopnea. GI: As above. : Negative. Musculoskeletal: As above. Neurologic: Negative. Results - Labs 12/16/17 14:07 12/16/17 14:07 Laboratory Last Values WBC 6.1 X10^3/uL (4.5-11.0) 12/16/17 14:07 RBC 4.30 X10^6/uL (4.0-5.2) 12/16/17 14:07 Hgb 12.0 g/dL (12.0-16.0) 12/16/17 14:07 Hct 35.9 % (36-46) L 12/16/17 14:07 MCV 83.5 fL (80-100) 12/16/17 14:07 MCH 27.8 PG (26-34) 12/16/17 14:07 MCHC 33.3 % (30-36) 12/16/17 14:07 RDW 14.9 % (11.6-14.8) H 12/16/17 14:07 Plt Count 133 X10^3/uL (150-400) L 12/16/17 14:07 Neut % (Auto) 60.1 % (50-75) 12/16/17 14:07 Lymph % (Auto) 28.6 % (25-40) 12/16/17 14:07 [place] % (Auto) 9.5 % (3-14) 12/16/17 14:07 Eos % (Auto) 1.1 % (2-4) L 12/16/17 14:07 Baso % (Auto) 0.7 % (0-2) 12/16/17 14:07 Neut # (Auto) 3700 /uL (0324-6612) 12/16/17 14:07 Sodium 137 mmol/L (137-145) 12/16/17 14:07 Potassium 4.2 mmol/L (3.4-5.1) 12/16/17 14:07 Chloride 99 mmol/L (98-107) 12/16/17 14:07 Carbon Dioxide 25 mmol/L (22-32) 12/16/17 14:07 BUN 25 mg/dL (7-17) H 12/16/17 14:07 Creatinine 0.70 mg/dL (0.52-1.04) 12/16/17 14:07 Estimated GFR > 60.0 mL/min (>60) 12/16/17 14:07 BUN/Creatinine Ratio 35.7 (6-22) H 12/16/17 14:07 Glucose 107 mg/dL (80-110) 12/16/17 14:07 Calcium 9.3 mg/dL (8.4-10.2) 12/16/17 14:07 Magnesium 1.4 mg/dL (1.6-2.3) L 12/16/17 14:07 Total Bilirubin 0.8 mg/dL (0.2-1.3) 12/16/17 14:07 AST 35 IU/L (14-36) 12/16/17 14:07 ALT 34 IU/L (9-52) 12/16/17 14:07 Alkaline Phosphatase 113 U/L (38-126) 12/16/17 14:07 Total Protein 7.7 g/dL (6.3-8.2) 12/16/17 14:07 Albumin 4.2 g/dL (3.5-5.0) 12/16/17 14:07 Globulin 3.5 g/dL (1.7-4.1) 12/16/17 14:07 Albumin/Globulin Ratio 1.2 (1.0-2.8) 12/16/17 14:07 CA 19-9 Antigen 257 U/mL (< 34) H 11/30/17 10:33 CA 27-29 108 U/mL (< 38) H 11/30/17 10:33 - Imaging Additional studies: Procedures Replacement of Right Knee Joint with Synthetic Substitute, Cemented, Open Approach (05/05/15) Home Medications and Allergies Home Medications Medication Instructions Recorded Confirmed Type aspirin 81 mg PO DAILY 11/02/17 12/21/17 History hydrochlorothiazide 50 mg PO DAILY 11/02/17 12/21/17 History losartan 50 mg PO DAILY 11/02/17 12/21/17 History lovastatin 40 mg PO DAILY 11/02/17 12/21/17 History metoprolol tartrate 50 mg PO BID 11/02/17 12/21/17 History pantoprazole 40 mg PO DAILY 11/02/17 12/21/17 History hydrocodone-acetaminophen [[place]] See Label Instructions .ROUTE 11/24/17 12/21/17 Rx .COMPLEX PRN #14 tab ondansetron [Zofran ODT] 8 mg PO Q8H #30 tab 11/30/17 12/21/17 Rx prochlorperazine maleate 10 mg PO Q6-8H PRN #30 tab 11/30/17 12/21/17 Rx [Compazine] Allergies Allergy/AdvReac Type Severity Reaction Status Date / Time Sulfa (Sulfonamide Allergy Mild DIARHHEA, Verified 11/24/17 14:21 Antibiotics) N/V [SULFA (SULFONAMIDE UNSURE IF ANTIBIOTICS)] IT WAS SULFA Exam Vital signs: Last Vital Signs Temp 97.8 F 12/07/17 10:37 Pulse 67 12/07/17 10:37 Resp 18 12/07/17 10:37 BP 141/70 H 12/07/17 10:37 Pulse Ox 97 12/07/17 10:37 - Constitutional positive no acute distress, positive cooperative - Routine HEENT Exam Head: Present: normocephalic, atraumatic Eye: Present: EOMI, PERRL. Absent: conjunctival icterus, scleral injection, periorbital ecchymosis ENT: Present: mucous membranes moist, oropharynx clear - Routine Neck Exam Present: supple. Absent: JVD, lymphadenopathy - Routine Respiratory Exam Present: Clear to auscultation bilaterally. Absent: decreased breath sounds, rales, wheezes - Routine Cardiovascular Exam Present: RRR, S1, S2. Absent: murmur, S3 - Routine Abdominal Exam Present: soft, normoactive bowel sounds. Absent: tenderness, distended, organomegaly Palpation/Percussion: Absent: hepatomegaly, shifting dullness - Routine Extremities Exam Absent: cyanosis, clubbing, edema - Routine Skin Exam Present: intact. Absent: cyanosis, erythema, jaundice, rash, ecchymosis - Routine Neurological Exam Present: alert, oriented X3, CN II-XII intact, moving all extremities, normal speech - Routine Psychiatric Exam Present: normal affect, normal thought process, cooperative, good judgment
[2017-12-21 09:06] VITALS: BP 137/67; PULSE 63; RESP 16; TEMP 36.3; O2SAT 100
[2017-12-21 09:43] LABS: Add Manual Diff / Slide Review NO; Basophils Percent Auto 1.2 % (0-2); Eosinophils Percent Auto 1.7 % (2-4); Hematocrit 36.7 % (36-46); Hemoglobin 12.1 g/dL (12.0-16.0); Lymphocytes Percent Auto 19.7 % (25-40); Mean Corpuscular Hemoglobin 27.7 PG (26-34); Monocytes Percent Auto 10.4 % (3-14); Neutrophils Absolute Auto 4400 /uL (3000-5900); Platelet Count 433 X10^3/uL (150-400); Red Blood Cell Count 4.37 X10^6/uL (4.0-5.2); Red Cell Distribution Width 15.5 % (11.6-14.8); White Blood Cell Count 6.5 X10^3/uL (4.5-11.0)
[2017-12-21 09:55] LABS: Alanine Aminotransferase 28 IU/L (9-52); Albumin 4.2 g/dL (3.5-5.0); Albumin Globulin Ratio 1.2 (1.0-2.8); Alkaline Phosphatase 120 U/L (38-126); Aspartate Aminotransferase 33 IU/L (14-36); BUN Creatinine Ratio 28.9 (6-22); Bilirubin Total 0.9 mg/dL (0.2-1.3); Blood Urea Nitrogen 26 mg/dL (7-17); Calcium 9.5 mg/dL (8.4-10.2); Carbon Dioxide 27 mmol/L (22-32); Chloride 100 mmol/L (98-107); Estimated Glomerular Filt Rate > 60.0 mL/min (>60); Globulin 3.4 g/dL (1.7-4.1); Glucose 144 mg/dL (80-110); HEMOLYSIS < 15 (0-50); Potassium 3.9 mmol/L (3.4-5.1); Sodium 138 mmol/L (137-145); Total Protein 7.6 g/dL (6.3-8.2)
[2017-12-21 10:21] LABS: Magnesium 1.6 mg/dL (1.6-2.3)
[2017-12-21] MEDS: SODIUM CHLORIDE 0.9% 1,000 ML 500 ML IV (10:23)
[2017-12-21] MEDS: DEXAMETHASONE 12 MG in SODIUM CHLORIDE 0.9% 50 ML 212 ML IV (10:23)
[2017-12-21] MEDS: LORazepam 0.5 MG TABLET PO (10:24)
[2017-12-21] MEDS: FOSAPREPITANT 150 MG in SODIUM CHLORIDE 0.9% 150 ML 300 ML IV (10:55)
[2017-12-21] MEDS: ONDANSETRON 16 MG in SODIUM CHLORIDE 0.9% 50 ML 232 ML IV (11:35)
[2017-12-21] MEDS: SODIUM CHLORIDE 0.9% IV (12:19)
[2017-12-21] MEDS: GEMCITABINE IV (12:19)
[2017-12-21] MEDS: CISPLATIN IV (13:05)
[2017-12-21] MEDS: [UNRECOGNIZED DRUG - OTHER] IV (13:05)
[2017-12-21] MEDS: POTASSIUM CHLORIDE IV (13:05)
[2017-12-21] MEDS: MANNITOL IV (13:05)
[2017-12-22 15:39] LABS: Cancer (Carbohydrate) Ag 19-9 166 U/mL (< 34); Cancer Antigen 27.29 104 U/mL (< 38)
[2017-12-28 09:31] LABS: Hematocrit 34.8 % (36-46); Hemoglobin 11.6 g/dL (12.0-16.0); Mean Corpuscular HGB Conc 33.3 % (30-36); Mean Corpuscular Volume 84.1 fL (80-100); Platelet Count 293 X10^3/uL (150-400); Red Blood Cell Count 4.14 X10^6/uL (4.0-5.2); Red Cell Distribution Width 15.6 % (11.6-14.8); White Blood Cell Count 5.6 X10^3/uL (4.5-11.0)
[2017-12-28 09:33] LABS: Add Manual Diff / Slide Review YES
[2017-12-28 09:46] LABS: Alanine Aminotransferase 27 IU/L (9-52); Albumin 4.1 g/dL (3.5-5.0); Albumin Globulin Ratio 1.3 (1.0-2.8); Alkaline Phosphatase 109 U/L (38-126); Aspartate Aminotransferase 31 IU/L (14-36); BUN Creatinine Ratio 26.3 (6-22); Bilirubin Total 0.6 mg/dL (0.2-1.3); Blood Urea Nitrogen 21 mg/dL (7-17); Calcium 9.5 mg/dL (8.4-10.2); Carbon Dioxide 29 mmol/L (22-32); Chloride 100 mmol/L (98-107); Estimated Glomerular Filt Rate > 60.0 mL/min (>60); Globulin 3.1 g/dL (1.7-4.1); Glucose 116 mg/dL (80-110); HEMOLYSIS 44 (0-50); Sodium 139 mmol/L (137-145); Total Protein 7.2 g/dL (6.3-8.2)
[2017-12-28 10:02] LABS: Neutrophils Absolute Manual 3696 /uL (3000-5900); Nucleated Red Blood Cells 3 #/Diff; Total Cells Counted 100
[2017-12-28 10:03] LABS: Anisocytosis 1+
[2017-12-28 10:11] LABS: Magnesium 1.3 mg/dL (1.6-2.3)
--- NOTE | 2017-12-28 10:33 | PC.NURSE ---
Pt c/o new pain right and left upper extremities, sometimes a 9 out of 10 pain. Describes as pounding pain. Denies numbness and tingling. Also new low back pain. Pt states she has a narcotic script at home and needs a refill. This was reported to Dr Rodriguez. Due to need to be evaluated by provider re: new pain, chemo is on hold today. appt made to be evaluated by Namita tomorrow at 9 am with possible treatment. Pt agreeable with this plan.
--- NOTE | 2017-12-29 07:53 | ONC.APRN.PN ---
Assessment and Plan (1) Cholangiocarcinoma Current visit: Yes Status: Acute 12/29/17 10:29 Abeba presents today for chemotherapy cycle 2 day 9 (8) of gemcitabine cisplatin. I do believe she was experiencing muscle tetany from hypomagnesemia. The symptoms are significantly improved patient reports no pain today. On exam today she had no C-spine tenderness. No other vertebral tenderness. No paraspinal tenderness. No nuchal rigidity. Range of motion on her bilateral upper extremities was unremarkable, no pain with passive and active range of motion. Abeba will receive 1g of magnesium in her chemotherapy today. The rest of her CBC and CMP looks good we will proceed with chemotherapy. I will have her return next week for CBC, magnesium, CMP. She already has an appointment in 2 weeks for cycle 3 gemcitabine cisplatin. 12/29/17 10:31 12/29/17 10:32 - Time Spent with Patient 35 mins PN -Subjective Interval history: Abeba presents today 12/30/2015 for possible chemotherapy cycle #2 of cisplatin and gemcitabine. She presented yesterday December 28 for chemotherapy however was reporting new onset 9/10 bilateral intermittent upper extremity pain, shoulder pain. She denied any injury. She had not had pain like this before. Chemotherapy was held yesterday she was asked to return today for appropriate triage by provider. Today 12/29/2017 Abeba reports she is feeling much better. She reports the pain in her arms is ?almost gone?. She describes it as a crampy, shooting or stabbing sensation. Not associated with any chest pain or shortness of breath. Not associated with movement or activity or rest. She did take 1 Percocet which provided affective relief. Otherwise seems to be doing well, tolerating chemotherapy thus far with mild nausea. She is having some diarrhea however not outside of what has been her norm the last several months. Appetite is stable, she has gained 2 lbs. No new pain. No headache. It is noted her magnesium has been low, yesterday December 28 it was 1.3. She has been receiving 1 g of magnesium with chemotherapy. Abeba denies cough, fever, chills. Activity tolerance is unchanged. Previous note Dr Rodriguez 12/21/2017 IDENTIFICATION: Ms. Dean is a 67-year-old woman with metastatic recently confirmed cholangiocarcinoma. INTERVAL HISTORY: She returns for treatment today. Here with her , Fred. She started chemotherapy with cisplatin and gemcitabine on November 30, 2017 with treatment on day 1, day 8 of a 21 day cycle. She tolerated treatment quite well. She has noted some fatigue as well as some minor nausea which resolved with oral medication. She feels ready to begin her 2nd cycle today. She has not yet had her lab work drawn. She does have a port. No new symptoms associated with this. She denies fever, chills, productive cough or dyspnea. No headaches or new neurologic symptoms. PAST HISTORY (FROM PRIOR NOTE): She is a former smoker from age 17 to age 37, up to 2 packs per day and quit in 1997. She drinks wine on occasion. No history of liver disease, hepatitis, pancreatitis. Most recent colonoscopy about 3 years ago. PAST HISTORY/PRESENTATION: HPI: She has a history of an umbilical hernia and this was causing pain and swelling which prompted a visit to local urgent care clinic. Diagnosed with cellulitis and was hospitalized with CT chest on 10/19/2017 showing hepatomegaly with a large heterogeneous low attenuation liver mass measuring 13.6 x 8.6 cm in the inferior right hepatic lobe. Several small retroperitoneal lymph nodes measuring up to 0.9 cm. Small mediastinal lymph nodes. A 2 mm nodule in the superior segment right lower lobe, nonspecific. No other clear evidence of primary site or additional metastatic involvement. She had lab work drawn. She was seen in consultation by GI, Infectious Disease and hematology oncology. Consultation note on 10/18/[address] Brittany Nassar recommended lab work, markers and biopsy of liver mass. She underwent CT-guided biopsy of the liver on 10/19/2017 with pathology showing metastatic adenocarcinoma, positive for CK7, negative for CK 20, CK 5/6, P 63, TTF 1, CDX2, ER and [place]-8. Differential includes primary adenocarcinoma from the lung, breast or upper GI/pancreatic or biliary origin. Pathologist Dr.Wael George at [facility], #[id number]. . . She was discharged on 10/20/2017 and has returned to this area for further workup and treatment. Here today with her , Fred and sister, Sandra. She denies any abdominal pain or other symptoms at this time. No nausea, bloating, change in bowel habits, melena or hematochezia. No nausea, vomiting or hematemesis. She has no personal history of malignancy. Most recent colonoscopy approximately 3 years ago showed a few polyps, non malignant. Mammogram also about 3 years ago. No new findings on self-breast exam. Former smoker from age [age] approximately, up to 2 pack per day and quit in 1997. Drinks wine on occasion. No history of liver disease, hepatitis, jaundice, pancreatitis. She denies headaches or new neurologic symptoms. She feels quite well now that her hernia and associated cellulitis have resolved. She finds it hard to believe that she has cancer given how well she feels. PAST MEDICAL HISTORY: HYPERTENSION, HYPERLIPIDEMIA, FORMER SMOKER QUIT IN 1997, UMBILICAL HERNIA. - Patient Self-Reported Symptoms SR ears, nose, mouth, throat issues: Nose bleeds SR respiratory issues: Cough SR Musculoskeletal issues: Muscle weakness Results - Labs 12/28/17 09:10 12/28/17 09:10 Laboratory Last Values WBC 5.6 X10^3/uL (4.5-11.0) 12/28/17 09:10 RBC 4.14 X10^6/uL (4.0-5.2) 12/28/17 09:10 Hgb 11.6 g/dL (12.0-16.0) L 12/28/17 09:10 Hct 34.8 % (36-46) L 12/28/17 09:10 MCV 84.1 fL (80-100) 12/28/17 09:10 MCH 28.0 PG (26-34) 12/28/17 09:10 MCHC 33.3 % (30-36) 12/28/17 09:10 RDW 15.6 % (11.6-14.8) H 12/28/17 09:10 Plt Count 293 X10^3/uL (150-400) 12/28/17 09:10 Neut % (Auto) Not Reportable 12/28/17 09:10 Lymph % (Auto) Not Reportable 12/28/17 09:10 [place] % (Auto) Not Reportable 12/28/17 09:10 Eos % (Auto) Not Reportable 12/28/17 09:10 Baso % (Auto) Not Reportable 12/28/17 09:10 Neut # (Auto) 4400 /uL (2346-5220) 12/21/17 09:29 Total Counted 100 12/28/17 09:10 Seg Neutrophils % 61.0 % (38-70) 12/28/17 09:10 Band Neutrophils % 5.0 % (3-7) 12/28/17 09:10 Lymphocytes % (Manual) 16.0 % (25-45) L 12/28/17 09:10 Monocytes % (Manual) 11.0 % (2-11) 12/28/17 09:10 Metamyelocytes % 4.0 % (-0) H 12/28/17 09:10 Myelocytes % 3.0 % (-0) H 12/28/17 09:10 Neutrophils # (Manual) 3696 /uL (8419-3936) 12/28/17 09:10 Nucleated RBCs 3 #/Diff (-0) H 12/28/17 09:10 RBC Morphology Not Reportable 12/28/17 09:10 Anisocytosis 1+ H 12/28/17 09:10 Sodium 139 mmol/L (137-145) 12/28/17 09:10 Potassium 4.0 mmol/L (3.4-5.1) 12/28/17 09:10 Chloride 100 mmol/L (98-107) 12/28/17 09:10 Carbon Dioxide 29 mmol/L (22-32) 12/28/17 09:10 BUN 21 mg/dL (7-17) H 12/28/17 09:10 Creatinine 0.80 mg/dL (0.52-1.04) 12/28/17 09:10 Estimated GFR > 60.0 mL/min (>60) 12/28/17 09:10 BUN/Creatinine Ratio 26.3 (6-22) H 12/28/17 09:10 Glucose 116 mg/dL (80-110) H 12/28/17 09:10 Calcium 9.5 mg/dL (8.4-10.2) 12/28/17 09:10 Magnesium 1.3 mg/dL (1.6-2.3) L 12/28/17 09:11 Total Bilirubin 0.6 mg/dL (0.2-1.3) 12/28/17 09:10 AST 31 IU/L (14-36) 12/28/17 09:10 ALT 27 IU/L (9-52) 12/28/17 09:10 Alkaline Phosphatase 109 U/L (38-126) 12/28/17 09:10 Total Protein 7.2 g/dL (6.3-8.2) 12/28/17 09:10 Albumin 4.1 g/dL (3.5-5.0) 12/28/17 09:10 Globulin 3.1 g/dL (1.7-4.1) 12/28/17 09:10 Albumin/Globulin Ratio 1.3 (1.0-2.8) 12/28/17 09:10 CA 19-9 Antigen 166 U/mL (< 34) H 12/21/17 09:29 CA 27-29 104 U/mL (< 38) H 12/21/17 09:29 - Imaging Additional studies: Procedures Replacement of Right Knee Joint with Synthetic Substitute, Cemented, Open Approach (05/05/15) Home Medications and Allergies Home Medications Medication Instructions Recorded Confirmed Type aspirin 81 mg PO DAILY 11/02/17 12/21/17 History hydrochlorothiazide 50 mg PO DAILY 11/02/17 12/21/17 History losartan 100 mg PO DAILY 11/02/17 12/21/17 History lovastatin 40 mg PO DAILY 11/02/17 12/21/17 History metoprolol tartrate 50 mg PO BID 11/02/17 12/21/17 History pantoprazole 40 mg PO DAILY 11/02/17 12/21/17 History hydrocodone-acetaminophen [[place]] See Label Instructions .ROUTE 11/24/17 12/21/17 Rx .COMPLEX PRN #14 tab ondansetron [Zofran ODT] 8 mg PO Q8H #30 tab 11/30/17 12/21/17 Rx prochlorperazine maleate 10 mg PO Q6-8H PRN #30 tab 11/30/17 12/21/17 Rx [Compazine] Allergies Allergy/AdvReac Type Severity Reaction Status Date / Time Sulfa (Sulfonamide Allergy Mild DIARHHEA, Verified 11/24/17 14:21 Antibiotics) N/V [SULFA (SULFONAMIDE UNSURE IF ANTIBIOTICS)] IT WAS SULFA Exam Vital signs: Last Vital Signs Temp 97.4 F L 12/21/17 09:06 Pulse 63 12/21/17 09:06 Resp 16 12/21/17 09:06 BP 137/67 H 12/21/17 09:06 Pulse Ox 100 12/21/17 09:06 Narrative: well appearing, non toxic appearing - Constitutional positive no acute distress - Routine HEENT Exam Head: Present: normocephalic, atraumatic Eye: Present: conjunctivae pink. Absent: conjunctival icterus, scleral injection ENT: Present: mucous membranes moist - Routine Neck Exam Present: supple. Absent: lymphadenopathy - Routine Chest/Breast/Axilla Exam Chest wall exam standard: Absent: tenderness, mass - Routine Respiratory Exam Present: Clear to auscultation bilaterally. Absent: rhonchi, wheezes, crackles - Routine Cardiovascular Exam Present: RRR, S1, S2. Absent: murmur, gallop, rubs - Routine Abdominal Exam Present: soft, normoactive bowel sounds. Absent: tenderness, distended, organomegaly Comments: large panus - Routine Extremities Exam Present: edema. Absent: calf tenderness Comments: trace symmetric bilateral LE edema. - Routine Back/Spine Exam Back/Spine: Absent: paraspinal tenderness, vertebral tenderness, pain with flexion, pain with lateral flexion - Routine Skin Exam Present: intact. Absent: erythema, petechiae - Routine Neurological Exam Present: alert, oriented X3 - Routine Psychiatric Exam Present: normal affect
[2017-12-29] MEDS: SODIUM CHLORIDE 0.9% 1,000 ML 500 ML IV (10:52)
[2017-12-29] MEDS: FOSAPREPITANT 150 MG in SODIUM CHLORIDE 0.9% 150 ML 300 ML IV (11:13)
[2017-12-29] MEDS: LORazepam 0.5 MG TABLET PO (11:23)
[2017-12-29] MEDS: DEXAMETHASONE 12 MG in SODIUM CHLORIDE 0.9% 50 ML 212 ML IV (11:53)
[2017-12-29] MEDS: ONDANSETRON 16 MG in SODIUM CHLORIDE 0.9% 50 ML 232 ML IV (12:07)
[2017-12-29] MEDS: GEMCITABINE IV (12:38)
[2017-12-29] MEDS: SODIUM CHLORIDE 0.9% IV (12:38)
[2017-12-29] MEDS: CISPLATIN IV (13:38)
[2017-12-29] MEDS: MANNITOL IV (13:38)
[2017-12-29] MEDS: POTASSIUM CHLORIDE IV (13:38)
[2017-12-29] MEDS: [UNRECOGNIZED DRUG - OTHER] IV (13:38)
[2017-12-29 15:18] VITALS: BP 166/72; PULSE 61; RESP 15; TEMP 36.9; O2SAT 100
[2018-01-03 14:25] LABS: Add Manual Diff / Slide Review NO; Basophils Percent Auto 1.1 % (0-2); Eosinophils Percent Auto 0.8 % (2-4); Hematocrit 33.2 % (36-46); Hemoglobin 11.2 g/dL (12.0-16.0); Lymphocytes Percent Auto 20.5 % (25-40); Mean Corpuscular HGB Conc 33.7 % (30-36); Mean Corpuscular Hemoglobin 28.4 PG (26-34); Mean Corpuscular Volume 84.4 fL (80-100); Monocytes Percent Auto 1.1 % (3-14); Neutrophils Absolute Auto 4400 /uL (3000-5900); Neutrophils Percent Auto 76.5 % (50-75); Platelet Count 125 X10^3/uL (150-400); Red Blood Cell Count 3.94 X10^6/uL (4.0-5.2); Red Cell Distribution Width 15.9 % (11.6-14.8); White Blood Cell Count 5.7 X10^3/uL (4.5-11.0)
[2018-01-03 14:40] LABS: Alanine Aminotransferase 41 IU/L (9-52); Albumin 4.1 g/dL (3.5-5.0); Albumin Globulin Ratio 1.3 (1.0-2.8); Alkaline Phosphatase 114 U/L (38-126); Aspartate Aminotransferase 36 IU/L (14-36); Bilirubin Total 0.6 mg/dL (0.2-1.3); Blood Urea Nitrogen 26 mg/dL (7-17); Calcium 9.9 mg/dL (8.4-10.2); Carbon Dioxide 29 mmol/L (22-32); Chloride 99 mmol/L (98-107); Estimated Glomerular Filt Rate 55.5 mL/min (>60); Globulin 3.2 g/dL (1.7-4.1); Glucose 115 mg/dL (80-110); HEMOLYSIS 23 (0-50); Sodium 138 mmol/L (137-145); Total Protein 7.3 g/dL (6.3-8.2)
[2018-01-03 14:41] LABS: Magnesium 1.2 mg/dL (1.6-2.3)
[2018-01-05 15:24] LABS: Cancer (Carbohydrate) Ag 19-9 133 U/mL (< 34)
[2018-01-05 15:32] LABS: Cancer Antigen 27.29 106 U/mL (< 38)
--- NOTE | 2018-01-11 08:58 | ONC.PN ---
Assessment and Plan - Time Spent with Patient IMPRESSION 1. METASTATIC ADENOCARCINOMA OF THE LIVER, STATUS POST CT-GUIDED LIVER BIOPSY ON OCTOBER 19, 2017 IN [place], [place]. 2. HYPOMAGNESEMIA. 3. MYALGIAS. 4. ANEMIA. 5. FORMER SMOKER, QUIT IN 1997. 6. COLON POLYPS, NON MALIGNANT. MOST RECENT COLONOSCOPY REPORTEDLY APPROXIMATELY 3 YEARS AGO. 7. FAMILY HISTORY OF COLON CANCER. SISTER WITH CANCER OF UNKNOWN TYPE INVOLVING THE SPINE, AT AGE 23. 8. ANXIETY. She returns today for cycle 3, day 1 treatment with cisplatin and gemcitabine. She has tolerated the 1st 2 cycles quite well overall. Clinical impression is metastatic cholangiocarcinoma. She also had consultation at [facility] with Dr. Bridges who agreed with our plan for treatment. Anticipate repeat CT for restaging after the current cycle and prior to cycle 4. Continue routine lab work, electrolyte magnesium replacement as needed. Genomic tumor profiling as well as genetic counseling/testing are in process. Reviewed in answered other questions to her satisfaction today. Plan: 1. Cycle 3, day 1 cisplatin and gemcitabine today. Standard premedication. 2. IV magnesium if indicated. 3. Mouth rinses and neutropenic precautions. 4. Transfuse RBCs or platelets if indicated. 5. Filgrastim support. 6. CT chest/abdomen/pelvis in 2-[address] November 25, 2017. 7. CBC, CMP, magnesium weekly. CEA, CA 19-9 and CA 27.29 in 2-3 weeks. 8. Referral for genetic counseling pending. 9. Requested outside tissue block from her biopsy in [place] be sent for genomic tumor profiling. 10. Return appointment in 3 weeks. DICTATED BY GILMAR WHITTEN MD MEDICAL ONCOLOGY AND HEMATOLOGY PN -Subjective Interval history: Hematology/oncology progress note Date of service: January 11, 2018 Patient name: Abeba Dean Date of : 1950 She returns today for treatment. She is 20 mins late arriving for her appointment, but fortunately is feeling okay. Her arm pain from last week has resolved. She did noted couple of days of lower back pain but this has also resolved spontaneously. She has not too concerned. She presented with metastatic disease in the liver but no pain or associated symptoms. Staging did not show spinal involvement. She is tolerating treatment fairly well and denies significant nausea, mouth sores or other concerns. No recent fever, chills, cough or dyspnea. No headaches, bone pain or new neurologic symptoms. She denies bleeding or rash. Feels ready to proceed with treatment as scheduled today. She will be due for restaging in the next 3-[address] Whitten 12/21/2017 IDENTIFICATION: Ms. Dean is a 67-year-old woman with metastatic recently confirmed cholangiocarcinoma. INTERVAL HISTORY: She returns for treatment today. Here with her , Fred. She started chemotherapy with cisplatin and gemcitabine on November 30, 2017 with treatment on day 1, day 8 of a 21 day cycle. She tolerated treatment quite well. She has noted some fatigue as well as some minor nausea which resolved with oral medication. She feels ready to begin her 2nd cycle today. She has not yet had her lab work drawn. She does have a port. No new symptoms associated with this. She denies fever, chills, productive cough or dyspnea. No headaches or new neurologic symptoms. PAST HISTORY (FROM PRIOR NOTE): She is a former smoker from age 17 to age 37, up to 2 packs per day and quit in 1997. She drinks wine on occasion. No history of liver disease, hepatitis, pancreatitis. Most recent colonoscopy about 3 years ago. PAST HISTORY/PRESENTATION: HPI: She has a history of an umbilical hernia and this was causing pain and swelling which prompted a visit to local urgent care clinic. Diagnosed with cellulitis and was hospitalized with CT chest on 10/19/2017 showing hepatomegaly with a large heterogeneous low attenuation liver mass measuring 13.6 x 8.6 cm in the inferior right hepatic lobe. Several small retroperitoneal lymph nodes measuring up to 0.9 cm. Small mediastinal lymph nodes. A 2 mm nodule in the superior segment right lower lobe, nonspecific. No other clear evidence of primary site or additional metastatic involvement. She had lab work drawn. She was seen in consultation by GI, Infectious Disease and hematology oncology. Consultation note on 10/18/[address] Brittany Nassar recommended lab work, markers and biopsy of liver mass. She underwent CT-guided biopsy of the liver on 10/19/2017 with pathology showing metastatic adenocarcinoma, positive for CK7, negative for CK 20, CK 5/6, P 63, TTF 1, CDX2, ER and [place]-8. Differential includes primary adenocarcinoma from the lung, breast or upper GI/pancreatic or biliary origin. Pathologist Dr.Wael George at [facility], #[id number]. . . She was discharged on 10/20/2017 and has returned to this area for further workup and treatment. Here today with her , Fred and sister, Sandra. She denies any abdominal pain or other symptoms at this time. No nausea, bloating, change in bowel habits, melena or hematochezia. No nausea, vomiting or hematemesis. She has no personal history of malignancy. Most recent colonoscopy approximately 3 years ago showed a few polyps, non malignant. Mammogram also about 3 years ago. No new findings on self-breast exam. Former smoker from age [age] approximately, up to 2 pack per day and quit in 1997. Drinks wine on occasion. No history of liver disease, hepatitis, jaundice, pancreatitis. She denies headaches or new neurologic symptoms. She feels quite well now that her hernia and associated cellulitis have resolved. She finds it hard to believe that she has cancer given how well she feels. PAST MEDICAL HISTORY: HYPERTENSION, HYPERLIPIDEMIA, FORMER SMOKER QUIT IN 1997, UMBILICAL HERNIA. - Patient Self-Reported Symptoms SR ears, nose, mouth, throat issues: Nose bleeds SR respiratory issues: Cough SR Musculoskeletal issues: Muscle weakness - Additional ROS Additional ROS: Review of systems General: No fever, chills or weight loss. HEENT: No headaches, vision change or dysphagia. Respiratory: No cough or dyspnea. Cardiac: No chest pain, PND or orthopnea. GI: As above. : Stable. Musculoskeletal: As above. Neurologic: Negative. Results - Labs 01/11/18 09:21 01/11/18 09:21 Laboratory Last Values WBC 5.7 X10^3/uL (4.5-11.0) 01/03/18 13:36 RBC 3.94 X10^6/uL (4.0-5.2) L 01/03/18 13:36 Hgb 11.2 g/dL (12.0-16.0) L 01/03/18 13:36 Hct 33.2 % (36-46) L 01/03/18 13:36 MCV 84.4 fL (80-100) 01/03/18 13:36 MCH 28.4 PG (26-34) 01/03/18 13:36 MCHC 33.7 % (30-36) 01/03/18 13:36 RDW 15.9 % (11.6-14.8) H 01/03/18 13:36 Plt Count 125 X10^3/uL (150-400) L 01/03/18 13:36 Neut % (Auto) 76.5 % (50-75) H 01/03/18 13:36 Lymph % (Auto) 20.5 % (25-40) L 01/03/18 13:36 [place] % (Auto) 1.1 % (3-14) L 01/03/18 13:36 Eos % (Auto) 0.8 % (2-4) L 01/03/18 13:36 Baso % (Auto) 1.1 % (0-2) 01/03/18 13:36 Neut # (Auto) 4400 /uL (8065-5224) 01/03/18 13:36 Total Counted 100 12/28/17 09:10 Seg Neutrophils % 61.0 % (38-70) 12/28/17 09:10 Band Neutrophils % 5.0 % (3-7) 12/28/17 09:10 Lymphocytes % (Manual) 16.0 % (25-45) L 12/28/17 09:10 Monocytes % (Manual) 11.0 % (2-11) 12/28/17 09:10 Metamyelocytes % 4.0 % (-0) H 12/28/17 09:10 Myelocytes % 3.0 % (-0) H 12/28/17 09:10 Neutrophils # (Manual) 3696 /uL (3278-4034) 12/28/17 09:10 Nucleated RBCs 3 #/Diff (-0) H 12/28/17 09:10 RBC Morphology Not Reportable 12/28/17 09:10 Anisocytosis 1+ H 12/28/17 09:10 Sodium 138 mmol/L (137-145) 01/03/18 13:36 Potassium 4.0 mmol/L (3.4-5.1) 01/03/18 13:36 Chloride 99 mmol/L (98-107) 01/03/18 13:36 Carbon Dioxide 29 mmol/L (22-32) 01/03/18 13:36 BUN 26 mg/dL (7-17) H 01/03/18 13:36 Creatinine 1.00 mg/dL (0.52-1.04) 01/03/18 13:36 Estimated GFR 55.5 mL/min (>60) L 01/03/18 13:36 BUN/Creatinine Ratio 26.0 (6-22) H 01/03/18 13:36 Glucose 115 mg/dL (80-110) H 01/03/18 13:36 Calcium 9.9 mg/dL (8.4-10.2) 01/03/18 13:36 Magnesium 1.2 mg/dL (1.6-2.3) L 01/03/18 13:36 Total Bilirubin 0.6 mg/dL (0.2-1.3) 01/03/18 13:36 AST 36 IU/L (14-36) 01/03/18 13:36 ALT 41 IU/L (9-52) 01/03/18 13:36 Alkaline Phosphatase 114 U/L (38-126) 01/03/18 13:36 Total Protein 7.3 g/dL (6.3-8.2) 01/03/18 13:36 Albumin 4.1 g/dL (3.5-5.0) 01/03/18 13:36 Globulin 3.2 g/dL (1.7-4.1) 01/03/18 13:36 Albumin/Globulin Ratio 1.3 (1.0-2.8) 01/03/18 13:36 CA 19-9 Antigen 133 U/mL (< 34) H 01/03/18 13:36 CA 27-29 106 U/mL (< 38) H 01/03/18 13:36 - Imaging Additional studies: Procedures Replacement of Right Knee Joint with Synthetic Substitute, Cemented, Open Approach (05/05/15) Home Medications and Allergies Home Medications Medication Instructions Recorded Confirmed Type aspirin 81 mg PO DAILY 11/02/17 01/11/18 History hydrochlorothiazide 50 mg PO DAILY 11/02/17 01/11/18 History losartan 100 mg PO DAILY 11/02/17 01/11/18 History lovastatin 40 mg PO DAILY 11/02/17 01/11/18 History metoprolol tartrate 50 mg PO BID 11/02/17 01/11/18 History pantoprazole 40 mg PO DAILY 11/02/17 01/11/18 History ondansetron [Zofran ODT] 8 mg PO Q8H #30 tab 11/30/17 01/11/18 Rx prochlorperazine maleate 10 mg PO Q6-8H PRN #30 tab 11/30/17 01/11/18 Rx [Compazine] hydrocodone-acetaminophen [[place]] See Label Instructions .ROUTE 12/29/17 01/11/18 Rx .COMPLEX PRN #14 tab Allergies Allergy/AdvReac Type Severity Reaction Status Date / Time Sulfa (Sulfonamide Allergy Mild DIARHHEA, Verified 11/24/17 14:21 Antibiotics) N/V [SULFA (SULFONAMIDE UNSURE IF ANTIBIOTICS)] IT WAS SULFA Exam Vital signs: Last Vital Signs Temp 98.4 F 12/29/17 15:18 Pulse 61 12/29/17 15:18 Resp 15 12/29/17 15:18 BP 166/72 H 12/29/17 15:18 Pulse Ox 100 12/29/17 15:18 - Constitutional positive no acute distress, positive average body habitus, negative diaphoretic, positive cooperative - Routine HEENT Exam Head: Present: normocephalic, atraumatic Eye: Present: EOMI, PERRL. Absent: conjunctival icterus, scleral injection, periorbital swelling ENT: Present: mucous membranes moist, oropharynx clear - Routine Neck Exam Present: supple, full ROM. Absent: JVD, lymphadenopathy - Routine Respiratory Exam Present: Clear to auscultation bilaterally. Absent: accessory muscle use, rales, wheezes, crackles - Routine Cardiovascular Exam Present: RRR, S1, S2. Absent: murmur, S3 - Routine Abdominal Exam Present: soft, normoactive bowel sounds. Absent: tenderness, distended, organomegaly Palpation/Percussion: Absent: hepatomegaly - Routine Extremities Exam Absent: cyanosis, clubbing, edema - Routine Back/Spine Exam Back/Spine: Present: full ROM. Absent: erythema, warmth - Routine Skin Exam Present: intact. Absent: cyanosis, erythema, mottling, jaundice, ecchymosis - Routine Neurological Exam Present: alert, oriented X3, moving all extremities, normal speech. Absent: sensory deficit, altered mental status, abnormal gait - Routine Psychiatric Exam Present: normal affect, normal thought process, cooperative, good judgment
--- NOTE | 2018-01-11 09:04 | P.PNONC_ITS ---
Assessment and Plan - Time Spent with Patient IMPRESSION 1. METASTATIC ADENOCARCINOMA OF THE LIVER, STATUS POST CT-GUIDED LIVER BIOPSY ON OCTOBER 19, 2017 IN [place], [place]. 2. HYPOMAGNESEMIA. 3. MYALGIAS. 4. ANEMIA. 5. FORMER SMOKER, QUIT IN 1997. 6. COLON POLYPS, NON MALIGNANT. MOST RECENT COLONOSCOPY REPORTEDLY APPROXIMATELY 3 YEARS AGO. 7. FAMILY HISTORY OF COLON CANCER. SISTER WITH CANCER OF UNKNOWN TYPE INVOLVING THE SPINE, AT AGE 23. 8. ANXIETY. She returns today for cycle 3, day 1 treatment with cisplatin and gemcitabine. She has tolerated the 1st 2 cycles quite well overall. Clinical impression is metastatic cholangiocarcinoma. She also had consultation at [facility] with Dr. Bridges who agreed with our plan for treatment. Anticipate repeat CT for restaging after the current cycle and prior to cycle 4. Continue routine lab work, electrolyte magnesium replacement as needed. Genomic tumor profiling as well as genetic counseling/testing are in process. Reviewed in answered other questions to her satisfaction today. Plan: 1. Cycle 3, day 1 cisplatin and gemcitabine today. Standard premedication. 2. IV magnesium if indicated. 3. Mouth rinses and neutropenic precautions. 4. Transfuse RBCs or platelets if indicated. 5. Filgrastim support. 6. CT chest/abdomen/pelvis in 2-[address] November 25, 2017. 7. CBC, CMP, magnesium weekly. CEA, CA 19-9 and CA 27.29 in 2-3 weeks. 8. Referral for genetic counseling pending. 9. Requested outside tissue block from her biopsy in [place] be sent for genomic tumor profiling. 10. Return appointment in 3 weeks. DICTATED BY GILMAR WHITTEN MD MEDICAL ONCOLOGY AND HEMATOLOGY PN -Subjective Interval history: Hematology/oncology progress note Date of service: January 11, 2018 Patient name: Abeba Dean Date of : 1950 She returns today for treatment. She is 20 mins late arriving for her appointment, but fortunately is feeling okay. Her arm pain from last week has resolved. She did noted couple of days of lower back pain but this has also resolved spontaneously. She has not too concerned. She presented with metastatic disease in the liver but no pain or associated symptoms. Staging did not show spinal involvement. She is tolerating treatment fairly well and denies significant nausea, mouth sores or other concerns. No recent fever, chills, cough or dyspnea. No headaches, bone pain or new neurologic symptoms. She denies bleeding or rash. Feels ready to proceed with treatment as scheduled today. She will be due for restaging in the next 3-[address] Whitten 12/21/2017 IDENTIFICATION: Ms. Dean is a 67-year-old woman with metastatic recently confirmed cholangiocarcinoma. INTERVAL HISTORY: She returns for treatment today. Here with her , Fred. She started chemotherapy with cisplatin and gemcitabine on November 30, 2017 with treatment on day 1, day 8 of a 21 day cycle. She tolerated treatment quite well. She has noted some fatigue as well as some minor nausea which resolved with oral medication. She feels ready to begin her 2nd cycle today. She has not yet had her lab work drawn. She does have a port. No new symptoms associated with this. She denies fever, chills, productive cough or dyspnea. No headaches or new neurologic symptoms. PAST HISTORY (FROM PRIOR NOTE): She is a former smoker from age 17 to age 37, up to 2 packs per day and quit in 1997. She drinks wine on occasion. No history of liver disease, hepatitis, pancreatitis. Most recent colonoscopy about 3 years ago. PAST HISTORY/PRESENTATION: HPI: She has a history of an umbilical hernia and this was causing pain and swelling which prompted a visit to local urgent care clinic. Diagnosed with cellulitis and was hospitalized with CT chest on 10/19/2017 showing hepatomegaly with a large heterogeneous low attenuation liver mass measuring 13.6 x 8.6 cm in the inferior right hepatic lobe. Several small retroperitoneal lymph nodes measuring up to 0.9 cm. Small mediastinal lymph nodes. A 2 mm nodule in the superior segment right lower lobe, nonspecific. No other clear evidence of primary site or additional metastatic involvement. She had lab work drawn. She was seen in consultation by GI, Infectious Disease and hematology oncology. Consultation note on 10/18/[address] Brittany Nassar recommended lab work, markers and biopsy of liver mass. She underwent CT-guided biopsy of the liver on 10/19/2017 with pathology showing metastatic adenocarcinoma, positive for CK7, negative for CK 20, CK 5/6, P 63, TTF 1, CDX2 , ER and [place]-8. Differential includes primary adenocarcinoma from the lung, breast or upper GI/pancreatic or biliary origin. Pathologist Dr.Wael George at [facility], #[id number]. . . She was discharged on 10/20/2017 and has returned to this area for further workup and treatment. Here today with her , Fred and sister, Sandra. She denies any abdominal pain or other symptoms at this time. No nausea, bloating, change in bowel habits, melena or hematochezia. No nausea, vomiting or hematemesis. She has no personal history of malignancy. Most recent colonoscopy approximately 3 years ago showed a few polyps, non malignant. Mammogram also about 3 years ago. No new findings on self-breast exam. Former smoker from age [age] approximately, up to 2 pack per day and quit in 1997. Drinks wine on occasion. No history of liver disease, hepatitis, jaundice, pancreatitis. She denies headaches or new neurologic symptoms. She feels quite well now that her hernia and associated cellulitis have resolved. She finds it hard to believe that she has cancer given how well she feels. PAST MEDICAL HISTORY: HYPERTENSION, HYPERLIPIDEMIA, FORMER SMOKER QUIT IN 1997, UMBILICAL HERNIA. - Patient Self-Reported Symptoms SR ears, nose, mouth, throat issues: Nose bleeds SR respiratory issues: Cough SR Musculoskeletal issues: Muscle weakness - Additional ROS Additional ROS: Review of systems General: No fever, chills or weight loss. HEENT: No headaches, vision change or dysphagia. Respiratory: No cough or dyspnea. Cardiac: No chest pain, PND or orthopnea. GI: As above. : Stable. Musculoskeletal: As above. Neurologic: Negative. Results - Labs 01/11/18 09:21 01/11/18 09:21 Laboratory Last Values WBC 5.7 X10^3/uL (4.5-11.0) 01/03/18 13:36 RBC 3.94 X10^6/uL (4.0-5.2) L 01/03/18 13:36 Hgb 11.2 g/dL (12.0-16.0) L 01/03/18 13:36 Hct 33.2 % (36-46) L 01/03/18 13:36 MCV 84.4 fL (80-100) 01/03/18 13:36 MCH 28.4 PG (26-34) 01/03/18 13:36 MCHC 33.7 % (30-36) 01/03/18 13:36 RDW 15.9 % (11.6-14.8) H 01/03/18 13:36 Plt Count 125 X10^3/uL (150-400) L 01/03/18 13:36 Neut % (Auto) 76.5 % (50-75) H 01/03/18 13:36 Lymph % (Auto) 20.5 % (25-40) L 01/03/18 13:36 [place] % (Auto) 1.1 % (3-14) L 01/03/18 13:36 Eos % (Auto) 0.8 % (2-4) L 01/03/18 13:36 Baso % (Auto) 1.1 % (0-2) 01/03/18 13:36 Neut # (Auto) 4400 /uL (2655-4105) 01/03/18 13:36 Total Counted 100 12/28/17 09:10 Seg Neutrophils % 61.0 % (38-70) 12/28/17 09:10 Band Neutrophils % 5.0 % (3-7) 12/28/17 09:10 Lymphocytes % (Manual) 16.0 % (25-45) L 12/28/17 09:10 Monocytes % (Manual) 11.0 % (2-11) 12/28/17 09:10 Metamyelocytes % 4.0 % (-0) H 12/28/17 09:10 Myelocytes % 3.0 % (-0) H 12/28/17 09:10 Neutrophils # (Manual) 3696 /uL (9791-3268) 12/28/17 09:10 Nucleated RBCs 3 #/Diff (-0) H 12/28/17 09:10 RBC Morphology Not Reportable 12/28/17 09:10 Anisocytosis 1+ H 12/28/17 09:10 Sodium 138 mmol/L (137-145) 01/03/18 13:36 Potassium 4.0 mmol/L (3.4-5.1) 01/03/18 13:36 Chloride 99 mmol/L (98-107) 01/03/18 13:36 Carbon Dioxide 29 mmol/L (22-32) 01/03/18 13:36 BUN 26 mg/dL (7-17) H 01/03/18 13:36 Creatinine 1.00 mg/dL (0.52-1.04) 01/03/18 13:36 Estimated GFR 55.5 mL/min (>60) L 01/03/18 13:36 BUN/Creatinine Ratio 26.0 (6-22) H 01/03/18 13:36 Glucose 115 mg/dL (80-110) H 01/03/18 13:36 Calcium 9.9 mg/dL (8.4-10.2) 01/03/18 13:36 Magnesium 1.2 mg/dL (1.6-2.3) L 01/03/18 13:36 Total Bilirubin 0.6 mg/dL (0.2-1.3) 01/03/18 13:36 AST 36 IU/L (14-36) 01/03/18 13:36 ALT 41 IU/L (9-52) 01/03/18 13:36 Alkaline Phosphatase 114 U/L (38-126) 01/03/18 13:36 Total Protein 7.3 g/dL (6.3-8.2) 01/03/18 13:36 Albumin 4.1 g/dL (3.5-5.0) 01/03/18 13:36 Globulin 3.2 g/dL (1.7-4.1) 01/03/18 13:36 Albumin/Globulin Ratio 1.3 (1.0-2.8) 01/03/18 13:36 CA 19-9 Antigen 133 U/mL (< 34) H 01/03/18 13:36 CA 27-29 106 U/mL (< 38) H 01/03/18 13:36 - Imaging Additional studies: Procedures Replacement of Right Knee Joint with Synthetic Substitute, Cemented, Open Approach (05/05/15) Home Medications and Allergies Home Medications Medication Instructions Recorded Confirmed Type aspirin 81 mg PO DAILY 11/02/17 01/11/18 History hydrochlorothiazide 50 mg PO DAILY 11/02/17 01/11/18 History losartan 100 mg PO DAILY 11/02/17 01/11/18 History lovastatin 40 mg PO DAILY 11/02/17 01/11/18 History metoprolol tartrate 50 mg PO BID 11/02/17 01/11/18 History pantoprazole 40 mg PO DAILY 11/02/17 01/11/18 History ondansetron [Zofran ODT] 8 mg PO Q8H #30 tab 11/30/17 01/11/18 Rx prochlorperazine maleate 10 mg PO Q6-8H PRN #30 tab 11/30/17 01/11/18 Rx [Compazine] hydrocodone-acetaminophen [[place]] See Label Instructions .ROUTE 12/29/17 Rx .COMPLEX PRN #14 tab Allergies Allergy/AdvReac Type Severity Reaction Status Date / Time Sulfa (Sulfonamide Allergy Mild DIARHHEA, Verified 11/24/17 14:21 Antibiotics) N/V [SULFA (SULFONAMIDE UNSURE IF ANTIBIOTICS)] IT WAS SULFA Exam Vital signs: Last Vital Signs Temp 98.4 F 12/29/17 15:18 Pulse 61 12/29/17 15:18 Resp 15 12/29/17 15:18 BP 166/72 H 12/29/17 15:18 Pulse Ox 100 12/29/17 15:18 - Constitutional positive no acute distress, positive average body habitus, negative diaphoretic , positive cooperative - Routine HEENT Exam Head: Present: normocephalic, atraumatic Eye: Present: EOMI, PERRL. Absent: conjunctival icterus, scleral injection, periorbital swelling ENT: Present: mucous membranes moist, oropharynx clear - Routine Neck Exam Present: supple, full ROM. Absent: JVD, lymphadenopathy - Routine Respiratory Exam Present: Clear to auscultation bilaterally. Absent: accessory muscle use, rales , wheezes, crackles - Routine Cardiovascular Exam Present: RRR, S1, S2. Absent: murmur, S3 - Routine Abdominal Exam Present: soft, normoactive bowel sounds. Absent: tenderness, distended, organomegaly Palpation/Percussion: Absent: hepatomegaly - Routine Extremities Exam Absent: cyanosis, clubbing, edema - Routine Back/Spine Exam Back/Spine: Present: full ROM. Absent: erythema, warmth - Routine Skin Exam Present: intact. Absent: cyanosis, erythema, mottling, jaundice, ecchymosis - Routine Neurological Exam Present: alert, oriented X3, moving all extremities, normal speech. Absent: sensory deficit, altered mental status, abnormal gait - Routine Psychiatric Exam Present: normal affect, normal thought process, cooperative, good judgment
[2018-01-11 09:45] LABS: Alanine Aminotransferase 27 IU/L (9-52); Albumin 4.2 g/dL (3.5-5.0); Albumin Globulin Ratio 1.3 (1.0-2.8); Alkaline Phosphatase 101 U/L (38-126); Aspartate Aminotransferase 29 IU/L (14-36); BUN Creatinine Ratio 27.5 (6-22); Bilirubin Total 0.6 mg/dL (0.2-1.3); Blood Urea Nitrogen 22 mg/dL (7-17); Calcium 9.6 mg/dL (8.4-10.2); Carbon Dioxide 26 mmol/L (22-32); Chloride 101 mmol/L (98-107); Estimated Glomerular Filt Rate > 60.0 mL/min (>60); Globulin 3.2 g/dL (1.7-4.1); Glucose 128 mg/dL (80-110); HEMOLYSIS 25 (0-50); Magnesium 1.4 mg/dL (1.6-2.3); Sodium 139 mmol/L (137-145); Total Protein 7.4 g/dL (6.3-8.2)
[2018-01-11 09:46] LABS: Add Manual Diff / Slide Review NO; Basophils Percent Auto 0.9 % (0-2); Eosinophils Percent Auto 1.6 % (2-4); Hematocrit 34.2 % (36-46); Hemoglobin 11.4 g/dL (12.0-16.0); Lymphocytes Percent Auto 19.4 % (25-40); Mean Corpuscular HGB Conc 33.4 % (30-36); Mean Corpuscular Hemoglobin 28.7 PG (26-34); Mean Corpuscular Volume 85.8 fL (80-100); Monocytes Percent Auto 10.1 % (3-14); Neutrophils Absolute Auto 4500 /uL (3000-5900); Platelet Count 255 X10^3/uL (150-400); Red Blood Cell Count 3.99 X10^6/uL (4.0-5.2); Red Cell Distribution Width 17.4 % (11.6-14.8); White Blood Cell Count 6.7 X10^3/uL (4.5-11.0)
[2018-01-11 09:47] VITALS: BP 149/65; PULSE 68; RESP 17; TEMP 36.5; O2SAT 99
[2018-01-11] MEDS: SODIUM CHLORIDE 0.9% 1,000 ML 500 ML IV (10:02)
[2018-01-11] MEDS: DEXAMETHASONE 12 MG in SODIUM CHLORIDE 0.9% 50 ML 212 ML IV (10:15)
[2018-01-11] MEDS: LORazepam 0.5 MG TABLET PO (10:15)
[2018-01-11] MEDS: FOSAPREPITANT 150 MG in SODIUM CHLORIDE 0.9% 150 ML 300 ML IV (10:36)
[2018-01-11] MEDS: ONDANSETRON 16 MG in SODIUM CHLORIDE 0.9% 50 ML 232 ML IV (11:19)
[2018-01-11] MEDS: GEMCITABINE IV (12:05)
[2018-01-11] MEDS: SODIUM CHLORIDE 0.9% IV (12:05)
[2018-01-11] MEDS: POTASSIUM CHLORIDE IV (12:46)
[2018-01-11] MEDS: CISPLATIN IV (12:46)
[2018-01-11] MEDS: MANNITOL IV (12:46)
[2018-01-11] MEDS: [UNRECOGNIZED DRUG - OTHER] IV (12:46)
[2018-01-18 09:37] LABS: Alanine Aminotransferase 33 IU/L (9-52); Albumin 4.2 g/dL (3.5-5.0); Albumin Globulin Ratio 1.4 (1.0-2.8); Alkaline Phosphatase 107 U/L (38-126); Aspartate Aminotransferase 31 IU/L (14-36); Bilirubin Total 0.6 mg/dL (0.2-1.3); Blood Urea Nitrogen 24 mg/dL (7-17); Calcium 9.4 mg/dL (8.4-10.2); Carbon Dioxide 27 mmol/L (22-32); Chloride 99 mmol/L (98-107); Estimated Glomerular Filt Rate > 60.0 mL/min (>60); Glucose 164 mg/dL (80-110); HEMOLYSIS < 15 (0-50); Magnesium 1.4 mg/dL (1.6-2.3); Potassium 4.1 mmol/L (3.4-5.1); Sodium 138 mmol/L (137-145); Total Protein 7.2 g/dL (6.3-8.2)
[2018-01-18 09:39] LABS: Hematocrit 33.3 % (36-46); Hemoglobin 11.2 g/dL (12.0-16.0); Mean Corpuscular HGB Conc 33.5 % (30-36); Mean Corpuscular Hemoglobin 28.7 PG (26-34); Mean Corpuscular Volume 85.7 fL (80-100); Platelet Count 305 X10^3/uL (150-400); Red Blood Cell Count 3.89 X10^6/uL (4.0-5.2); Red Cell Distribution Width 17.9 % (11.6-14.8); White Blood Cell Count 4.7 X10^3/uL (4.5-11.0)
[2018-01-18 09:40] LABS: Add Manual Diff / Slide Review YES
[2018-01-18 09:57] LABS: Anisocytosis 1+; Neutrophils Absolute Manual 2538 /uL (3000-5900); Nucleated Red Blood Cells 3 #/Diff; Polychromasia 1+; Total Cells Counted 100
[2018-01-18] MEDS: SODIUM CHLORIDE 0.9% 1,000 ML 500 ML IV (10:16)
[2018-01-18] MEDS: DEXAMETHASONE 12 MG in SODIUM CHLORIDE 0.9% 50 ML 212 ML IV (10:23)
[2018-01-18] MEDS: LORazepam 0.5 MG TABLET PO (10:23)
[2018-01-18 10:26] VITALS: BP 138/51; PULSE 65; RESP 16; TEMP 36.7
[2018-01-18] MEDS: ONDANSETRON 16 MG in SODIUM CHLORIDE 0.9% 50 ML 232 ML IV (10:45)
[2018-01-18] MEDS: FOSAPREPITANT 150 MG in SODIUM CHLORIDE 0.9% 150 ML 300 ML IV (11:07)
[2018-01-18] MEDS: GEMCITABINE IV (11:55)
[2018-01-18] MEDS: SODIUM CHLORIDE 0.9% IV (11:55)
[2018-01-18] MEDS: [UNRECOGNIZED DRUG - OTHER] IV (12:42)
[2018-01-18] MEDS: MANNITOL IV (12:42)
[2018-01-18] MEDS: CISPLATIN IV (12:42)
[2018-01-18] MEDS: POTASSIUM CHLORIDE IV (12:42)
[2018-01-25 11:44] LABS: Add Manual Diff / Slide Review NO; Basophils Percent Auto 0.8 % (0-2); Eosinophils Percent Auto 0.6 % (2-4); Hematocrit 31.9 % (36-46); Hemoglobin 10.6 g/dL (12.0-16.0); Mean Corpuscular HGB Conc 33.3 % (30-36); Mean Corpuscular Hemoglobin 28.8 PG (26-34); Mean Corpuscular Volume 86.4 fL (80-100); Monocytes Percent Auto 6.6 % (3-14); Neutrophils Absolute Auto 2600 /uL (3000-5900); Platelet Count 74 X10^3/uL (150-400); Red Blood Cell Count 3.69 X10^6/uL (4.0-5.2); Red Cell Distribution Width 18.2 % (11.6-14.8); White Blood Cell Count 4.3 X10^3/uL (4.5-11.0)
[2018-01-25 11:57] LABS: Alanine Aminotransferase 42 IU/L (9-52); Albumin 4.3 g/dL (3.5-5.0); Albumin Globulin Ratio 1.4 (1.0-2.8); Alkaline Phosphatase 98 U/L (38-126); Aspartate Aminotransferase 35 IU/L (14-36); Bilirubin Total 0.6 mg/dL (0.2-1.3); Blood Urea Nitrogen 31 mg/dL (7-17); Calcium 9.6 mg/dL (8.4-10.2); Carbon Dioxide 31 mmol/L (22-32); Chloride 96 mmol/L (98-107); Estimated Glomerular Filt Rate 55.5 mL/min (>60); Glucose 108 mg/dL (80-110); HEMOLYSIS < 15 (0-50); Magnesium 1.4 mg/dL (1.6-2.3); Potassium 4.1 mmol/L (3.4-5.1); Sodium 136 mmol/L (137-145); Total Protein 7.3 g/dL (6.3-8.2)
[2018-01-27 16:57] LABS: Cancer (Carbohydrate) Ag 19-9 54 U/mL (< 34); Cancer Antigen 27.29 99 U/mL (< 38)
[2018-02-01 09:53] VITALS: BP 153/77; PULSE 68; RESP 16; TEMP 36.8; O2SAT 98
--- NOTE | 2018-02-01 10:07 | P.PNONC_ITS ---
Assessment and Plan - Time Spent with Patient IMPRESSION: 1. Metastatic adenocarcinoma to the liver, status post CT-guided liver biopsy October 19, 2017 in [place], [place]. 2. Thrombocytopenia. 3. Anemia, normocytic. 4. Hypomagnesemia. 5. Former smoker, quit in 1997. 6. Colon polyps, non malignant with most recent colonoscopy approximately 3 years ago. 7. Anxiety. Reviewed recent lab results. CA 19-9 has fallen with other labs generally stable. CT chest/abdomen/pelvis January 25, 2018 shows decrease in size of several hepatic metastases with other lesions stable and also better circumscribed. No new or increasing metastases. No new areas of disease involvement. She is tolerating treatment quite well. She notes some nausea for about 3 days after treatment, controlled with ondansetron. No emesis. Also mild fatigue and malaise but no other major issues. She is generally pleased in surprised by how she is tolerating treatment. Encouraged to know that it is working and without new symptoms or concerns today. Offered encouragement to her. We reviewed treatment schedule and plan. She is due for cycle 4, day 1 today. PLAN: 1. Cycle 4, day 1 cisplatin and gemcitabine today following standard premedication. 2. Mouth rinses and neutropenic precautions. 3. IV magnesium if indicated. 4. Transfuse RBCs or platelets if needed. 5. Filgrastim support. 6. CBC, CMP, magnesium weekly. CEA and CA 19-9, +/-CA 27.29 3 weeks. 7. Anticipate a repeat CT in 2-3 months. 8. [facility] Cdx testing requested including dMMR (tissue blocks in [place], [place]). 9. Referral for genetic counseling. 10. Return appointment in 3 weeks. DICTATED BY GILMAR WHITTEN MD MEDICAL ONCOLOGY AND HEMATOLOGY PN -Subjective Interval history: Hematology/oncology progress note Date of service: January 11, 2018 Patient name: Abeba Dean Date of : 1950 She returns today for treatment. She is 20 mins late arriving for her appointment, but fortunately is feeling okay. Her arm pain from last week has resolved. She did noted couple of days of lower back pain but this has also resolved spontaneously. She has not too concerned. She presented with metastatic disease in the liver but no pain or associated symptoms. Staging did not show spinal involvement. She is tolerating treatment fairly well and denies significant nausea, mouth sores or other concerns. No recent fever, chills, cough or dyspnea. No headaches, bone pain or new neurologic symptoms. She denies bleeding or rash. Feels ready to proceed with treatment as scheduled today. She will be due for restaging in the next 3-[address] Whitten 12/21/2017 IDENTIFICATION: Ms. Dean is a 67-year-old woman with metastatic recently confirmed cholangiocarcinoma. INTERVAL HISTORY: She returns for treatment today. Here with her , Fred. She started chemotherapy with cisplatin and gemcitabine on November 30, 2017 with treatment on day 1, day 8 of a 21 day cycle. She tolerated treatment quite well. She has noted some fatigue as well as some minor nausea which resolved with oral medication. She feels ready to begin her 2nd cycle today. She has not yet had her lab work drawn. She does have a port. No new symptoms associated with this. She denies fever, chills, productive cough or dyspnea. No headaches or new neurologic symptoms. PAST HISTORY (FROM PRIOR NOTE): She is a former smoker from age 17 to age 37, up to 2 packs per day and quit in 1997. She drinks wine on occasion. No history of liver disease, hepatitis, pancreatitis. Most recent colonoscopy about 3 years ago. PAST HISTORY/PRESENTATION: HPI: She has a history of an umbilical hernia and this was causing pain and swelling which prompted a visit to local urgent care clinic. Diagnosed with cellulitis and was hospitalized with CT chest on 10/19/2017 showing hepatomegaly with a large heterogeneous low attenuation liver mass measuring 13.6 x 8.6 cm in the inferior right hepatic lobe. Several small retroperitoneal lymph nodes measuring up to 0.9 cm. Small mediastinal lymph nodes. A 2 mm nodule in the superior segment right lower lobe, nonspecific. No other clear evidence of primary site or additional metastatic involvement. She had lab work drawn. She was seen in consultation by GI, Infectious Disease and hematology oncology. Consultation note on 10/18/[address] Brittany Nassar recommended lab work, markers and biopsy of liver mass. She underwent CT-guided biopsy of the liver on 10/19/2017 with pathology showing metastatic adenocarcinoma, positive for CK7, negative for CK 20, CK 5/6, P 63, TTF 1, CDX2 , ER and [place]-8. Differential includes primary adenocarcinoma from the lung, breast or upper GI/pancreatic or biliary origin. Pathologist Dr.Wael George at [facility], #[id number]. . . She was discharged on 10/20/2017 and has returned to this area for further workup and treatment. Here today with her , Fred and sister, Sandra. She denies any abdominal pain or other symptoms at this time. No nausea, bloating, change in bowel habits, melena or hematochezia. No nausea, vomiting or hematemesis. She has no personal history of malignancy. Most recent colonoscopy approximately 3 years ago showed a few polyps, non malignant. Mammogram also about 3 years ago. No new findings on self-breast exam. Former smoker from age [age] approximately, up to 2 pack per day and quit in 1997. Drinks wine on occasion. No history of liver disease, hepatitis, jaundice, pancreatitis. She denies headaches or new neurologic symptoms. She feels quite well now that her hernia and associated cellulitis have resolved. She finds it hard to believe that she has cancer given how well she feels. PAST MEDICAL HISTORY: HYPERTENSION, HYPERLIPIDEMIA, FORMER SMOKER QUIT IN 1997, UMBILICAL HERNIA. - Patient Self-Reported Symptoms SR ears, nose, mouth, throat issues: Nose bleeds SR respiratory issues: Cough SR Musculoskeletal issues: Muscle weakness Results - Labs 01/25/18 11:37 01/25/18 11:37 Laboratory Last Values WBC 4.3 X10^3/uL (4.5-11.0) L 01/25/18 11:37 RBC 3.69 X10^6/uL (4.0-5.2) L 01/25/18 11:37 Hgb 10.6 g/dL (12.0-16.0) L 01/25/18 11:37 Hct 31.9 % (36-46) L 01/25/18 11:37 MCV 86.4 fL (80-100) 01/25/18 11:37 MCH 28.8 PG (26-34) 01/25/18 11:37 MCHC 33.3 % (30-36) 01/25/18 11:37 RDW 18.2 % (11.6-14.8) H 01/25/18 11:37 Plt Count 74 X10^3/uL (150-400) L 01/25/18 11:37 Neut % (Auto) 61.0 % (50-75) 01/25/18 11:37 Lymph % (Auto) 31.0 % (25-40) 01/25/18 11:37 [place] % (Auto) 6.6 % (3-14) 01/25/18 11:37 Eos % (Auto) 0.6 % (2-4) L 01/25/18 11:37 Baso % (Auto) 0.8 % (0-2) 01/25/18 11:37 Neut # (Auto) 2600 /uL (1920-8208) L 01/25/18 11:37 Total Counted 100 01/18/18 09:14 Seg Neutrophils % 47.0 % (38-70) 01/18/18 09:14 Band Neutrophils % 7.0 % (3-7) 01/18/18 09:14 Lymphocytes % (Manual) 36.0 % (25-45) 01/18/18 09:14 Atypical Lymphs % 4.0 % (-0) H 01/18/18 09:14 Monocytes % (Manual) 5.0 % (2-11) 01/18/18 09:14 Basophils % (Manual) 1.0 % (0-1) 01/18/18 09:14 Metamyelocytes % 4.0 % (-0) H 12/28/17 09:10 Myelocytes % 3.0 % (-0) H 12/28/17 09:10 Neutrophils # (Manual) 2538 /uL (3623-1855) L 01/18/18 09:14 Nucleated RBCs 3 #/Diff (-0) H 01/18/18 09:14 RBC Morphology Not Reportable 01/18/18 09:14 Polychromasia 1+ H 01/18/18 09:14 Anisocytosis 1+ H 01/18/18 09:14 Sodium 136 mmol/L (137-145) L 01/25/18 11:37 Potassium 4.1 mmol/L (3.4-5.1) 01/25/18 11:37 Chloride 96 mmol/L (98-107) L 01/25/18 11:37 Carbon Dioxide 31 mmol/L (22-32) 01/25/18 11:37 BUN 31 mg/dL (7-17) H 01/25/18 11:37 Creatinine 1.00 mg/dL (0.52-1.04) 01/25/18 11:37 Estimated GFR 55.5 mL/min (>60) L 01/25/18 11:37 BUN/Creatinine Ratio 31.0 (6-22) H 01/25/18 11:37 Glucose 108 mg/dL (80-110) 01/25/18 11:37 Calcium 9.6 mg/dL (8.4-10.2) 01/25/18 11:37 Magnesium 1.4 mg/dL (1.6-2.3) L 01/25/18 11:37 Total Bilirubin 0.6 mg/dL (0.2-1.3) 01/25/18 11:37 AST 35 IU/L (14-36) 01/25/18 11:37 ALT 42 IU/L (9-52) 01/25/18 11:37 Alkaline Phosphatase 98 U/L (38-126) 01/25/18 11:37 Total Protein 7.3 g/dL (6.3-8.2) 01/25/18 11:37 Albumin 4.3 g/dL (3.5-5.0) 01/25/18 11:37 Globulin 3.0 g/dL (1.7-4.1) 01/25/18 11:37 Albumin/Globulin Ratio 1.4 (1.0-2.8) 01/25/18 11:37 Carcinoembryonic Ag 1.0 ng/mL (0.1-3.0) 01/25/18 11:37 CA 19-9 Antigen 54 U/mL (< 34) H 01/25/18 11:37 CA 27-29 99 U/mL (< 38) H 01/25/18 11:37 - Imaging Additional studies: Procedures Replacement of Right Knee Joint with Synthetic Substitute, Cemented, Open Approach (05/05/15) Home Medications and Allergies Home Medications Medication Instructions Recorded Confirmed Type aspirin 81 mg PO DAILY 11/02/17 01/11/18 History hydrochlorothiazide 50 mg PO DAILY 11/02/17 01/11/18 History losartan 100 mg PO DAILY 11/02/17 01/11/18 History lovastatin 40 mg PO DAILY 11/02/17 01/11/18 History metoprolol tartrate 50 mg PO BID 11/02/17 01/11/18 History pantoprazole 40 mg PO DAILY 11/02/17 01/11/18 History ondansetron [Zofran ODT] 8 mg PO Q8H #30 tab 11/30/17 01/11/18 Rx prochlorperazine maleate 10 mg PO Q6-8H PRN #30 tab 11/30/17 01/11/18 Rx [Compazine] hydrocodone-acetaminophen [[place]] See Label Instructions .ROUTE 12/29/17 Rx .COMPLEX PRN #14 tab Allergies Allergy/AdvReac Type Severity Reaction Status Date / Time Sulfa (Sulfonamide Allergy Mild DIARHHEA, Verified 11/24/17 14:21 Antibiotics) N/V [SULFA (SULFONAMIDE UNSURE IF ANTIBIOTICS)] IT WAS SULFA Exam Vital signs: Last Vital Signs Temp 98.2 F 02/01/18 09:53 Pulse 68 02/01/18 09:53 Resp 16 02/01/18 09:53 BP 153/77 H 02/01/18 09:53 Pulse Ox 98 02/01/18 09:53
[2018-02-01 10:22] LABS: Add Manual Diff / Slide Review NO; Basophils Percent Auto 1.1 % (0-2); Hematocrit 32.2 % (36-46); Hemoglobin 10.7 g/dL (12.0-16.0); Lymphocytes Percent Auto 17.8 % (25-40); Mean Corpuscular HGB Conc 33.1 % (30-36); Mean Corpuscular Hemoglobin 29.2 PG (26-34); Mean Corpuscular Volume 88.1 fL (80-100); Monocytes Percent Auto 9.6 % (3-14); Neutrophils Absolute Auto 4000 /uL (3000-5900); Neutrophils Percent Auto 69.5 % (50-75); Platelet Count 317 X10^3/uL (150-400); Red Blood Cell Count 3.66 X10^6/uL (4.0-5.2); Red Cell Distribution Width 20.7 % (11.6-14.8); White Blood Cell Count 5.8 X10^3/uL (4.5-11.0)
[2018-02-01] MEDS: LORazepam 0.5 MG TABLET PO (10:41)
[2018-02-01] MEDS: SODIUM CHLORIDE 0.9% 1,000 ML 500 ML IV (10:41)
[2018-02-01 10:46] LABS: Anisocytosis 2+
[2018-02-01] MEDS: DEXAMETHASONE 12 MG in SODIUM CHLORIDE 0.9% 50 ML 212 ML IV (11:02)
[2018-02-01] MEDS: FOSAPREPITANT 150 MG in SODIUM CHLORIDE 0.9% 150 ML 300 ML IV (11:24)
[2018-02-01] MEDS: ONDANSETRON 16 MG in SODIUM CHLORIDE 0.9% 50 ML 232 ML IV (12:02)
[2018-02-01] MEDS: GEMCITABINE IV (12:41)
[2018-02-01] MEDS: SODIUM CHLORIDE 0.9% IV (12:41)
[2018-02-01] MEDS: CISPLATIN IV (13:35)
[2018-02-01] MEDS: POTASSIUM CHLORIDE IV (13:35)
[2018-02-01] MEDS: MANNITOL IV (13:35)
[2018-02-01] MEDS: [UNRECOGNIZED DRUG - OTHER] IV (13:35)
[2018-02-08 09:32] LABS: Hematocrit 30.8 % (36-46); Hemoglobin 10.5 g/dL (12.0-16.0); Mean Corpuscular HGB Conc 34.1 % (30-36); Mean Corpuscular Volume 88.1 fL (80-100); Platelet Count 275 X10^3/uL (150-400); Red Blood Cell Count 3.49 X10^6/uL (4.0-5.2); Red Cell Distribution Width 20.1 % (11.6-14.8); White Blood Cell Count 4.2 X10^3/uL (4.5-11.0)
[2018-02-08 09:33] LABS: Add Manual Diff / Slide Review YES
[2018-02-08 09:41] LABS: Alanine Aminotransferase 31 IU/L (9-52); Albumin 4.2 g/dL (3.5-5.0); Albumin Globulin Ratio 1.4 (1.0-2.8); Alkaline Phosphatase 94 U/L (38-126); Aspartate Aminotransferase 34 IU/L (14-36); BUN Creatinine Ratio 25.6 (6-22); Bilirubin Total 0.5 mg/dL (0.2-1.3); Blood Urea Nitrogen 23 mg/dL (7-17); Calcium 9.5 mg/dL (8.4-10.2); Carbon Dioxide 28 mmol/L (22-32); Chloride 97 mmol/L (98-107); Estimated Glomerular Filt Rate > 60.0 mL/min (>60); Globulin 2.9 g/dL (1.7-4.1); Glucose 168 mg/dL (80-110); HEMOLYSIS < 15 (0-50); Magnesium 1.2 mg/dL (1.6-2.3); Potassium 3.8 mmol/L (3.4-5.1); Sodium 137 mmol/L (137-145); Total Protein 7.1 g/dL (6.3-8.2)
[2018-02-08 10:03] LABS: Anisocytosis 2+; Neutrophils Absolute Manual 2100 /uL (3000-5900); Nucleated Red Blood Cells 2 #/Diff; Polychromasia 1+; Total Cells Counted 100
[2018-02-08 10:10] VITALS: BP 157/74; PULSE 65; RESP 16; TEMP 36.7; O2SAT 99
[2018-02-08] MEDS: SODIUM CHLORIDE 0.9% 1,000 ML 500 ML IV (10:12)
[2018-02-08] MEDS: LORazepam 0.5 MG TABLET PO (10:14)
[2018-02-08] MEDS: DEXAMETHASONE 12 MG in SODIUM CHLORIDE 0.9% 50 ML 212 ML IV (10:26)
[2018-02-08] MEDS: FOSAPREPITANT 150 MG in SODIUM CHLORIDE 0.9% 150 ML 300 ML IV (10:49)
[2018-02-08] MEDS: ONDANSETRON 16 MG in SODIUM CHLORIDE 0.9% 50 ML 232 ML IV (11:28)
[2018-02-08] MEDS: GEMCITABINE IV (11:58)
[2018-02-08] MEDS: SODIUM CHLORIDE 0.9% IV (11:58)
[2018-02-08] MEDS: MANNITOL IV (12:46)
[2018-02-08] MEDS: POTASSIUM CHLORIDE IV (12:46)
[2018-02-08] MEDS: [UNRECOGNIZED DRUG - OTHER] IV (12:46)
[2018-02-08] MEDS: CISPLATIN IV (12:46)
[2018-02-15 12:19] LABS: Hematocrit 31.8 % (36-46); Hemoglobin 10.9 g/dL (12.0-16.0); Mean Corpuscular HGB Conc 34.4 % (30-36); Platelet Count 95 X10^3/uL (150-400); Red Blood Cell Count 3.53 X10^6/uL (4.0-5.2); Red Cell Distribution Width 20.7 % (11.6-14.8); White Blood Cell Count 4.8 X10^3/uL (4.5-11.0)
[2018-02-15 12:20] LABS: Add Manual Diff / Slide Review YES
[2018-02-15] MEDS: ALTEPLASE 2 MG/2 ML VIAL IV (12:29)
[2018-02-15 12:38] LABS: Anisocytosis 2+; Neutrophils Absolute Manual 2832 /uL (3000-5900); Nucleated Red Blood Cells 3 #/Diff; Polychromasia 1+; Total Cells Counted 100
[2018-02-22 09:44] LABS: Add Manual Diff / Slide Review NO; Basophils Percent Auto 1.2 % (0-2); Eosinophils Percent Auto 1.8 % (2-4); Hematocrit 31.1 % (36-46); Hemoglobin 10.4 g/dL (12.0-16.0); Lymphocytes Percent Auto 18.5 % (25-40); Mean Corpuscular HGB Conc 33.5 % (30-36); Mean Corpuscular Hemoglobin 30.1 PG (26-34); Monocytes Percent Auto 10.2 % (3-14); Neutrophils Absolute Auto 4100 /uL (3000-5900); Neutrophils Percent Auto 68.3 % (50-75); Platelet Count 292 X10^3/uL (150-400); Red Blood Cell Count 3.46 X10^6/uL (4.0-5.2); White Blood Cell Count 5.9 X10^3/uL (4.5-11.0)
[2018-02-22 09:51] LABS: Alanine Aminotransferase 30 IU/L (9-52); Albumin 4.3 g/dL (3.5-5.0); Albumin Globulin Ratio 1.5 (1.0-2.8); Alkaline Phosphatase 90 U/L (38-126); Aspartate Aminotransferase 35 IU/L (14-36); BUN Creatinine Ratio 27.8 (6-22); Bilirubin Total 0.6 mg/dL (0.2-1.3); Blood Urea Nitrogen 25 mg/dL (7-17); Calcium 9.6 mg/dL (8.4-10.2); Carbon Dioxide 26 mmol/L (22-32); Chloride 100 mmol/L (98-107); Estimated Glomerular Filt Rate > 60.0 mL/min (>60); Globulin 2.8 g/dL (1.7-4.1); Glucose 170 mg/dL (80-110); HEMOLYSIS < 15 (0-50); Sodium 137 mmol/L (137-145); Total Protein 7.1 g/dL (6.3-8.2)
[2018-02-22 10:10] LABS: Anisocytosis 2+; Polychromasia 1+
--- NOTE | 2018-02-22 10:13 | P.PNONC_ITS ---
Assessment and Plan (1) Cholangiocarcinoma Problem details: 67-year-old woman with cholangiocarcinoma with liver metastases. She is tolerating her chemotherapy with the expected toxicity. Her tumor markers have shown some improvement and CT showed slight decrease in the size of her liver tumors. She will continue with her current regimen. She will return to clinic in about 3 weeks or so for follow-up. She did have a foundation 1 test attempted but it failed. We talked about the potentially repeating a biopsy. We also talked about pursuing potentially a [place] test which would look for mutations in cell free DNA circulating in the blood. She tells me that she is most concerned about risk for familial cancer. Neither of these tests would help with that. I did offer her a referral to [place] for genetic counseling. She is not sure yet whether she wants to pursue that. Current visit: No Status: Acute PN -Subjective Interval history: Hematology/oncology progress note Date of service: January 11, 2018 Patient name: Abeba Dean Date of : 1950 Diagnosis: Cholangiocarcinoma Previous treatment: 4 cycles of cisplatin and gemcitabine Interval history: The patient is a 67-year-old woman who has been receiving chemotherapy for a cholangiocarcinoma with liver metastases. She has been tolerating her therapy fairly well. She has noted some increased fatigue. She has had some dyspnea on exertion especially while walking uphill. She denies any fevers or chills. Her appetite has been stable. She has noted some weight gain. She has had some nausea. She has been using Zofran with good relief. She has not had any emesis. Bowels have been moving normally. She denies any abdominal pain. She has not noted any adenopathy. She has had some thinning of the hair but not complete alopecia. She did have tumor pathology sent for a foundation test but it could not be performed for technical reasons. PAST HISTORY (FROM PRIOR NOTE): She is a former smoker from age 17 to age 37, up to 2 packs per day and quit in 1997. She drinks wine on occasion. No history of liver disease, hepatitis, pancreatitis. Most recent colonoscopy about 3 years ago. PAST HISTORY/PRESENTATION: HPI: She has a history of an umbilical hernia and this was causing pain and swelling which prompted a visit to local urgent care clinic. Diagnosed with cellulitis and was hospitalized with CT chest on 10/19/2017 showing hepatomegaly with a large heterogeneous low attenuation liver mass measuring 13.6 x 8.6 cm in the inferior right hepatic lobe. Several small retroperitoneal lymph nodes measuring up to 0.9 cm. Small mediastinal lymph nodes. A 2 mm nodule in the superior segment right lower lobe, nonspecific. No other clear evidence of primary site or additional metastatic involvement. She had lab work drawn. She was seen in consultation by GI, Infectious Disease and hematology oncology. Consultation note on 10/18/[address] Brittany Nassar recommended lab work, markers and biopsy of liver mass. She underwent CT-guided biopsy of the liver on 10/19/2017 with pathology showing metastatic adenocarcinoma, positive for CK7, negative for CK 20, CK 5/6, P 63, TTF 1, CDX2 , ER and [place]-8. Differential includes primary adenocarcinoma from the lung, breast or upper GI/pancreatic or biliary origin. Pathologist Dr.Wael George at [facility], #[id number]. . . She was discharged on 10/20/2017 and has returned to this area for further workup and treatment. Here today with her , Fred and sister, Sandra. She denies any abdominal pain or other symptoms at this time. No nausea, bloating, change in bowel habits, melena or hematochezia. No nausea, vomiting or hematemesis. She has no personal history of malignancy. Most recent colonoscopy approximately 3 years ago showed a few polyps, non malignant. Mammogram also about 3 years ago. No new findings on self-breast exam. Former smoker from age [age] approximately, up to 2 pack per day and quit in 1997. Drinks wine on occasion. No history of liver disease, hepatitis, jaundice, pancreatitis. She denies headaches or new neurologic symptoms. She feels quite well now that her hernia and associated cellulitis have resolved. She finds it hard to believe that she has cancer given how well she feels. PAST MEDICAL HISTORY: HYPERTENSION, HYPERLIPIDEMIA, FORMER SMOKER QUIT IN 1997, UMBILICAL HERNIA. - Patient Self-Reported Symptoms SR ears, nose, mouth, throat issues: Nose bleeds SR respiratory issues: Cough SR Cardiovascular issues: Shortness of breath with activity or lying flat, Dizzy /lightheaded SR Skin issues: Dry skin, Hair loss or scalp prob SR Gastrointestinal issues: Nausea, Diarrhea, Heartburn SR Musculoskeletal issues: Back or neck pain - Additional ROS Additional ROS: She has had some thinning of the hair. She has had some weight gain and fluid retention. She has had nausea as described above. She is not having any neuropathy. No changes in her hearing. Results - Labs Laboratory Last Values WBC 5.9 X10^3/uL (4.5-11.0) 02/22/18 09:25 RBC 3.46 X10^6/uL (4.0-5.2) L 02/22/18 09:25 Hgb 10.4 g/dL (12.0-16.0) L 02/22/18 09:25 Hct 31.1 % (36-46) L 02/22/18 09:25 MCV 90.0 fL (80-100) 02/22/18 09:25 MCH 30.1 PG (26-34) 02/22/18 09:25 MCHC 33.5 % (30-36) 02/22/18 09:25 RDW 22.0 % (11.6-14.8) H 02/22/18 09:25 Plt Count 292 X10^3/uL (150-400) 02/22/18 09:25 Neut % (Auto) 68.3 % (50-75) 02/22/18 09:25 Lymph % (Auto) 18.5 % (25-40) L 02/22/18 09:25 [place] % (Auto) 10.2 % (3-14) 02/22/18 09:25 Eos % (Auto) 1.8 % (2-4) L 02/22/18 09:25 Baso % (Auto) 1.2 % (0-2) 02/22/18 09:25 Neut # (Auto) 4100 /uL (2037-8829) 02/22/18 09:25 Total Counted 100 02/15/18 11:10 Seg Neutrophils % 56.0 % (38-70) 02/15/18 11:10 Band Neutrophils % 3.0 % (3-7) 02/15/18 11:10 Lymphocytes % (Manual) 34.0 % (25-45) 02/15/18 11:10 Atypical Lymphs % 2.0 % (-0) H 02/15/18 11:10 Monocytes % (Manual) 4.0 % (2-11) 02/15/18 11:10 Eosinophils % (Manual) 1.0 % (2-4) L 02/15/18 11:10 Basophils % (Manual) 2.0 % (0-1) H 02/08/18 09:22 Metamyelocytes % 5.0 % (-0) H 02/08/18 09:22 Myelocytes % 3.0 % (-0) H 12/28/17 09:10 Neutrophils # (Manual) 2832 /uL (9590-2481) L 02/15/18 11:10 Nucleated RBCs 3 #/Diff (-0) H 02/15/18 11:10 RBC Morphology Not Reportable 02/15/18 11:10 Polychromasia 1+ H 02/15/18 11:10 Anisocytosis 2+ H 02/15/18 11:10 Sodium 137 mmol/L (137-145) 02/22/18 09:25 Potassium 4.0 mmol/L (3.4-5.1) 02/22/18 09:25 Chloride 100 mmol/L (98-107) 02/22/18 09:25 Carbon Dioxide 26 mmol/L (22-32) 02/22/18 09:25 BUN 25 mg/dL (7-17) H 02/22/18 09:25 Creatinine 0.90 mg/dL (0.52-1.04) 02/22/18 09:25 Estimated GFR > 60.0 mL/min (>60) 02/22/18 09:25 BUN/Creatinine Ratio 27.8 (6-22) H 02/22/18 09:25 Glucose 170 mg/dL (80-110) H 02/22/18 09:25 Calcium 9.6 mg/dL (8.4-10.2) 02/22/18 09:25 Magnesium 1.2 mg/dL (1.6-2.3) L 02/08/18 09:22 Total Bilirubin 0.6 mg/dL (0.2-1.3) 02/22/18 09:25 AST 35 IU/L (14-36) 02/22/18 09:25 ALT 30 IU/L (9-52) 02/22/18 09:25 Alkaline Phosphatase 90 U/L (38-126) 02/22/18 09:25 Total Protein 7.1 g/dL (6.3-8.2) 02/22/18 09:25 Albumin 4.3 g/dL (3.5-5.0) 02/22/18 09:25 Globulin 2.8 g/dL (1.7-4.1) 02/22/18 09:25 Albumin/Globulin Ratio 1.5 (1.0-2.8) 02/22/18 09:25 Carcinoembryonic Ag 1.0 ng/mL (0.1-3.0) 01/25/18 11:37 CA 19-9 Antigen 54 U/mL (< 34) H 01/25/18 11:37 CA 27-29 99 U/mL (< 38) H 01/25/18 11:37 - Imaging Additional studies: Procedures Replacement of Right Knee Joint with Synthetic Substitute, Cemented, Open Approach (05/05/15) Home Medications and Allergies Home Medications Medication Instructions Recorded Confirmed Type aspirin 81 mg PO DAILY 11/02/17 01/11/18 History hydrochlorothiazide 50 mg PO DAILY 11/02/17 01/11/18 History losartan 100 mg PO DAILY 11/02/17 01/11/18 History lovastatin 40 mg PO DAILY 11/02/17 01/11/18 History metoprolol tartrate 50 mg PO BID 11/02/17 01/11/18 History pantoprazole 40 mg PO DAILY 11/02/17 01/11/18 History ondansetron [Zofran ODT] 8 mg PO Q8H #30 tab 11/30/17 01/11/18 Rx prochlorperazine maleate 10 mg PO Q6-8H PRN #30 tab 11/30/17 01/11/18 Rx [Compazine] hydrocodone-acetaminophen [[place]] See Label Instructions .ROUTE 12/29/17 Rx .COMPLEX PRN #14 tab Allergies Allergy/AdvReac Type Severity Reaction Status Date / Time Sulfa (Sulfonamide Allergy Mild DIARHHEA, Verified 11/24/17 14:21 Antibiotics) N/V [SULFA (SULFONAMIDE UNSURE IF ANTIBIOTICS)] IT WAS SULFA Exam Vital signs: Last Vital Signs Temp 98.0 F 02/08/18 10:10 Pulse 65 02/08/18 10:10 Resp 16 02/08/18 10:10 BP 157/74 H 02/08/18 10:10 Pulse Ox 99 02/08/18 10:10 - Constitutional positive no acute distress, positive cooperative - Routine HEENT Exam Head: Present: normocephalic, atraumatic Eye: Present: EOMI, PERRL. Absent: conjunctival icterus, scleral injection ENT: Present: mucous membranes moist, oropharynx clear - Routine Neck Exam Present: supple. Absent: lymphadenopathy, thyromegaly - Routine Respiratory Exam Present: Clear to auscultation bilaterally. Absent: rales, wheezes - Routine Cardiovascular Exam Present: RRR, S1, S2. Absent: murmur - Routine Abdominal Exam Present: soft, normoactive bowel sounds, organomegaly (The liver edge is palpable about 4 finger breaths below the costal margin. I do not feel a fluid wave.) Palpation/Percussion: Absent: fluid waves - Routine Extremities Exam Present: edema Comments: She has trace to 1+ lower extremity edema bilaterally. - Routine Skin Exam Present: intact. Absent: petechiae, rash - Routine Neurological Exam Present: alert, oriented X3 - Routine Psychiatric Exam Present: normal affect, normal thought process
[2018-02-22 10:22] LABS: Carcinoembryonic Antigen 0.8 ng/mL (0.1-3.0)
[2018-02-22] MEDS: SODIUM CHLORIDE 0.9% 1,000 ML 500 ML IV (10:34)
[2018-02-22 10:39] VITALS: BP 143/64; PULSE 68; RESP 15; TEMP 36.8; O2SAT 99
[2018-02-22] MEDS: DEXAMETHASONE 12 MG in SODIUM CHLORIDE 0.9% 50 ML 212 ML IV (10:42)
[2018-02-22] MEDS: LORazepam 0.5 MG TABLET PO (11:11)
[2018-02-22] MEDS: ONDANSETRON 16 MG in SODIUM CHLORIDE 0.9% 50 ML 232 ML IV (11:11)
[2018-02-22] MEDS: FOSAPREPITANT 150 MG in SODIUM CHLORIDE 0.9% 150 ML 300 ML IV (11:32)
[2018-02-22] MEDS: SODIUM CHLORIDE 0.9% IV (12:38)
[2018-02-22] MEDS: GEMCITABINE IV (12:38)
[2018-02-22] MEDS: MANNITOL IV (13:22)
[2018-02-22] MEDS: [UNRECOGNIZED DRUG - OTHER] IV (13:22)
[2018-02-22] MEDS: CISPLATIN IV (13:22)
[2018-02-22] MEDS: POTASSIUM CHLORIDE IV (13:22)
[2018-02-24 14:59] LABS: Cancer (Carbohydrate) Ag 19-9 45 U/mL (< 34)
[2018-03-01 09:00] LABS: Hematocrit 30.3 % (36-46); Hemoglobin 10.3 g/dL (12.0-16.0); Mean Corpuscular HGB Conc 33.8 % (30-36); Mean Corpuscular Volume 91.7 fL (80-100); Platelet Count 258 X10^3/uL (150-400); Red Cell Distribution Width 20.9 % (11.6-14.8); White Blood Cell Count 3.6 X10^3/uL (4.5-11.0)
[2018-03-01 09:03] LABS: Add Manual Diff / Slide Review YES
[2018-03-01] MEDS: SODIUM CHLORIDE 0.9% 1,000 ML 500 ML IV (09:18)
[2018-03-01 09:37] LABS: Macrocytosis 1+; Neutrophils Absolute Manual 1692 /uL (3000-5900); Polychromasia 2+; Total Cells Counted 100
[2018-03-01] MEDS: LORazepam 0.5 MG TABLET PO (09:42)
[2018-03-01] MEDS: DEXAMETHASONE 12 MG in SODIUM CHLORIDE 0.9% 50 ML 212 ML IV (09:47)
[2018-03-01 09:59] VITALS: BP 162/76; PULSE 61; RESP 18; TEMP 36.7; O2SAT 100
[2018-03-01] MEDS: ONDANSETRON 16 MG in SODIUM CHLORIDE 0.9% 50 ML 232 ML IV (10:07)
[2018-03-01] MEDS: FOSAPREPITANT 150 MG in SODIUM CHLORIDE 0.9% 150 ML 300 ML IV (10:34)
[2018-03-01] MEDS: GEMCITABINE IV (11:25)
[2018-03-01] MEDS: SODIUM CHLORIDE 0.9% IV (11:25)
[2018-03-01] MEDS: POTASSIUM CHLORIDE IV (12:10)
[2018-03-01] MEDS: CISPLATIN IV (12:10)
[2018-03-01] MEDS: MANNITOL IV (12:10)
[2018-03-01] MEDS: [UNRECOGNIZED DRUG - OTHER] IV (12:10)
[2018-03-08] MEDS: ALTEPLASE 2 MG/2 ML VIAL IV (09:36)
[2018-03-08 10:58] LABS: Add Manual Diff / Slide Review NO; Basophils Percent Auto 0.7 % (0-2); Eosinophils Percent Auto 0.7 % (2-4); Hematocrit 28.7 % (36-46); Hemoglobin 9.6 g/dL (12.0-16.0); Lymphocytes Percent Auto 31.9 % (25-40); Mean Corpuscular HGB Conc 33.4 % (30-36); Mean Corpuscular Hemoglobin 31.2 PG (26-34); Mean Corpuscular Volume 93.3 fL (80-100); Neutrophils Absolute Auto 1800 /uL (3000-5900); Neutrophils Percent Auto 59.7 % (50-75); Red Blood Cell Count 3.07 X10^6/uL (4.0-5.2); Red Cell Distribution Width 20.1 % (11.6-14.8)
[2018-03-08 11:09] LABS: Platelet Count 46 X10^3/uL (150-400)
[2018-03-08 11:43] LABS: Anisocytosis 1+; Polychromasia 1+
[2018-03-15 10:29] LABS: Add Manual Diff / Slide Review NO; Basophils Percent Auto 1.3 % (0-2); Eosinophils Percent Auto 1.9 % (2-4); Hematocrit 31.3 % (36-46); Hemoglobin 10.4 g/dL (12.0-16.0); Lymphocytes Percent Auto 15.8 % (25-40); Mean Corpuscular HGB Conc 33.3 % (30-36); Mean Corpuscular Hemoglobin 30.9 PG (26-34); Mean Corpuscular Volume 92.8 fL (80-100); Monocytes Percent Auto 10.7 % (3-14); Neutrophils Absolute Auto 3600 /uL (3000-5900); Neutrophils Percent Auto 70.3 % (50-75); Platelet Count 269 X10^3/uL (150-400); Red Blood Cell Count 3.38 X10^6/uL (4.0-5.2); Red Cell Distribution Width 20.4 % (11.6-14.8); White Blood Cell Count 5.1 X10^3/uL (4.5-11.0)
[2018-03-15 10:33] VITALS: BP 176/75; PULSE 68; RESP 18; TEMP 36.6; O2SAT 99
[2018-03-15 10:39] LABS: Alanine Aminotransferase 31 IU/L (9-52); Albumin 4.2 g/dL (3.5-5.0); Albumin Globulin Ratio 1.5 (1.0-2.8); Alkaline Phosphatase 99 U/L (38-126); Aspartate Aminotransferase 41 IU/L (14-36); Bilirubin Total 0.6 mg/dL (0.2-1.3); Blood Urea Nitrogen 19 mg/dL (7-17); Calcium 9.6 mg/dL (8.4-10.2); Carbon Dioxide 29 mmol/L (22-32); Chloride 99 mmol/L (98-107); Estimated Glomerular Filt Rate 55.5 mL/min (>60); Globulin 2.8 g/dL (1.7-4.1); Glucose 154 mg/dL (80-110); HEMOLYSIS < 15 (0-50); Potassium 3.9 mmol/L (3.4-5.1); Sodium 140 mmol/L (137-145)
--- NOTE | 2018-03-15 11:05 | P.PNONC_ITS ---
PN -Subjective Interval history: Hematology/oncology progress note Date of service: January 11, 2018 Patient name: Abeba Dean Date of : 1950 Diagnosis: Cholangiocarcinoma Previous treatment: 5 cycles of cisplatin and gemcitabine Interval history: The patient is a 67-year-old woman who has been receiving chemotherapy for a cholangiocarcinoma with liver metastases. She has been tolerating her therapy fairly well. She was having some trouble with nausea and poor appetite. She also is having some sleep disturbance. She started taking some marijuana oil and brownies. She notes that since then, she has been sleeping much better. Her appetite and nausea have improved. She has not had any emesis. She has had occasional tenderness over her port site but no other aches or pains. She denies any shortness of breath or cough. Bowels have been moving well. She has had occasional diarrhea which has been a chronic problem for her. Her notes that her hearing has been somewhat diminished. She denies any tinnitus. She is not having any neuropathy. She is planning on traveling to [place] for the winter. She will be leaving after her treatment next week. PAST HISTORY (FROM PRIOR NOTE): She is a former smoker from age 17 to age 37, up to 2 packs per day and quit in 1997. She drinks wine on occasion. No history of liver disease, hepatitis, pancreatitis. Most recent colonoscopy about 3 years ago. PAST MEDICAL HISTORY: HYPERTENSION, HYPERLIPIDEMIA, FORMER SMOKER QUIT IN 1997, UMBILICAL HERNIA. - Patient Self-Reported Symptoms SR Constitution: Fatigue/Malaise SR ears, nose, mouth, throat issues: Nose bleeds SR respiratory issues: Cough SR Cardiovascular issues: Shortness of breath with activity or lying flat, Dizzy /lightheaded SR Skin issues: Dry skin, Hair loss or scalp prob SR Gastrointestinal issues: Nausea, Diarrhea, Heartburn SR Musculoskeletal issues: Back or neck pain - Additional ROS Additional ROS: She has had some decrease in her hearing. She also has had some weight gain. Home Medications and Allergies Home Medications Medication Instructions Recorded Confirmed Type aspirin 81 mg PO DAILY 11/02/17 03/15/18 History hydrochlorothiazide 50 mg PO DAILY 11/02/17 03/15/18 History losartan 100 mg PO DAILY 11/02/17 03/15/18 History lovastatin 40 mg PO DAILY 11/02/17 03/15/18 History metoprolol tartrate 50 mg PO BID 11/02/17 03/15/18 History pantoprazole 40 mg PO DAILY 11/02/17 03/15/18 History ondansetron [Zofran ODT] 8 mg PO Q8H #30 tab 11/30/17 03/15/18 Rx prochlorperazine maleate 10 mg PO Q6-8H PRN #30 tab 11/30/17 03/15/18 Rx [Compazine] hydrocodone-acetaminophen [Garner] See Label Instructions .ROUTE 12/29/17 Rx .COMPLEX PRN #14 tab Allergies Allergy/AdvReac Type Severity Reaction Status Date / Time Sulfa (Sulfonamide Allergy Mild DIARHHEA, Verified 11/24/17 14:21 Antibiotics) N/V [SULFA (SULFONAMIDE UNSURE IF ANTIBIOTICS)] IT WAS SULFA Exam Vital signs: Last Vital Signs Temp 97.9 F 03/15/18 10:33 Pulse 68 03/15/18 10:33 Resp 18 03/15/18 10:33 BP 176/75 H 03/15/18 10:33 Pulse Ox 99 03/15/18 10:33 - Constitutional positive no acute distress, positive obese - Routine HEENT Exam Head: Present: normocephalic, atraumatic Eye: Present: EOMI, PERRL. Absent: conjunctival icterus, scleral injection ENT: Present: mucous membranes moist, oropharynx clear, TM's clear bilaterally - Routine Neck Exam Present: supple. Absent: lymphadenopathy, thyromegaly - Routine Respiratory Exam Present: Clear to auscultation bilaterally, wheezes. Absent: rales - Routine Cardiovascular Exam Present: RRR, S1, S2. Absent: murmur - Routine Abdominal Exam Present: soft, normoactive bowel sounds. Absent: tenderness, distended, organomegaly - Routine Extremities Exam Absent: cyanosis, clubbing, edema - Routine Back/Spine Exam Back/Spine: Absent: paraspinal tenderness, vertebral tenderness - Routine Skin Exam Present: intact. Absent: pallor, petechiae, rash - Routine Neurological Exam Present: alert, oriented X3 - Routine Psychiatric Exam Present: normal affect, normal thought process Results - Labs Laboratory Last Values WBC 5.1 X10^3/uL (4.5-11.0) 03/15/18 10:07 RBC 3.38 X10^6/uL (4.0-5.2) L 03/15/18 10:07 Hgb 10.4 g/dL (12.0-16.0) L 03/15/18 10:07 Hct 31.3 % (36-46) L 03/15/18 10:07 MCV 92.8 fL (80-100) 03/15/18 10:07 MCH 30.9 PG (26-34) 03/15/18 10:07 MCHC 33.3 % (30-36) 03/15/18 10:07 RDW 20.4 % (11.6-14.8) H 03/15/18 10:07 Plt Count 269 X10^3/uL (150-400) 03/15/18 10:07 Neut % (Auto) 70.3 % (50-75) 03/15/18 10:07 Lymph % (Auto) 15.8 % (25-40) L 03/15/18 10:07 [place] % (Auto) 10.7 % (3-14) 03/15/18 10:07 Eos % (Auto) 1.9 % (2-4) L 03/15/18 10:07 Baso % (Auto) 1.3 % (0-2) 03/15/18 10:07 Neut # (Auto) 3600 /uL (9941-7307) 03/15/18 10:07 Total Counted 100 03/01/18 08:36 Seg Neutrophils % 40.0 % (38-70) 03/01/18 08:36 Band Neutrophils % 7.0 % (3-7) 03/01/18 08:36 Lymphocytes % (Manual) 36.0 % (25-45) 03/01/18 08:36 Atypical Lymphs % 3.0 % (-0) H 03/01/18 08:36 Monocytes % (Manual) 13.0 % (2-11) H 03/01/18 08:36 Eosinophils % (Manual) 1.0 % (2-4) L 02/15/18 11:10 Basophils % (Manual) 2.0 % (0-1) H 02/08/18 09:22 Metamyelocytes % 1.0 % (-0) H 03/01/18 08:36 Myelocytes % 3.0 % (-0) H 12/28/17 09:10 Neutrophils # (Manual) 1692 /uL (1229-4361) L 03/01/18 08:36 Nucleated RBCs 3 #/Diff (-0) H 02/15/18 11:10 Platelet Estimate 03/08/18 09:06 RBC Morphology Not Reportable 03/08/18 09:06 Polychromasia 1+ H 03/08/18 09:06 Anisocytosis 1+ H 03/08/18 09:06 Macrocytosis 1+ H 03/01/18 08:36 Sodium 140 mmol/L (137-145) 03/15/18 10:07 Potassium 3.9 mmol/L (3.4-5.1) 03/15/18 10:07 Chloride 99 mmol/L (98-107) 03/15/18 10:07 Carbon Dioxide 29 mmol/L (22-32) 03/15/18 10:07 BUN 19 mg/dL (7-17) H 03/15/18 10:07 Creatinine 1.00 mg/dL (0.52-1.04) 03/15/18 10:07 Estimated GFR 55.5 mL/min (>60) L 03/15/18 10:07 BUN/Creatinine Ratio 19.0 (6-22) 03/15/18 10:07 Glucose 154 mg/dL (80-110) H 03/15/18 10:07 Calcium 9.6 mg/dL (8.4-10.2) 03/15/18 10:07 Magnesium 1.2 mg/dL (1.6-2.3) L 02/08/18 09:22 Total Bilirubin 0.6 mg/dL (0.2-1.3) 03/15/18 10:07 AST 41 IU/L (14-36) H 03/15/18 10:07 ALT 31 IU/L (9-52) 03/15/18 10:07 Alkaline Phosphatase 99 U/L (38-126) 03/15/18 10:07 Total Protein 7.0 g/dL (6.3-8.2) 03/15/18 10:07 Albumin 4.2 g/dL (3.5-5.0) 03/15/18 10:07 Globulin 2.8 g/dL (1.7-4.1) 03/15/18 10:07 Albumin/Globulin Ratio 1.5 (1.0-2.8) 03/15/18 10:07 Carcinoembryonic Ag 0.8 ng/mL (0.1-3.0) 02/22/18 09:25 CA 19-9 Antigen 45 U/mL (< 34) H 02/22/18 09:25 CA 27-29 99 U/mL (< 38) H 01/25/18 11:37 - Imaging Additional studies: Procedures Replacement of Right Knee Joint with Synthetic Substitute, Cemented, Open Approach (05/05/15) Assessment and Plan (1) Cholangiocarcinoma Problem details: 67-year-old woman with cholangiocarcinoma with liver metastases. She is tolerating her chemotherapy with the expected toxicity. Her tumor markers have shown some improvement and CT showed slight decrease in the size of her liver tumors. She will proceed with her 6th cycle of chemotherapy today. She will followup is a with her physicians in [place] after that. She will be due for CT scan around that time. She will trying get that done in [place]. She did have some improvement in her symptoms with medical marijuana. I explained that I did not think that this was harmful or interfere with her chemotherapy in any way. It has been shown to improve nausea appetite pain and anxiety. I think it is fine for her to continue as long she feels like it is helping her. She did have questions about how long to continue with chemotherapy. I explained that in other diseases like colon cancer or breast cancer, we know that continuing therapy leads to better outcome. In cholangiocarcinoma, there is no equivalent data. Some patients will elect to continue chemotherapy, especially if there tolerating it well. Other patients elect to stop after 6-8 cycles of treatment and observe. I have been a few cases. Cisplatin may continue with gemcitabine maintenance. There is no randomized data in cholangiocarcinoma suggest that this is effective but similar strategy seem to be effective in other cancer types. She will follow up with her physicians in [place] in about 3 weeks or so with a CT scan around that time. I have not scheduled a follow-up appointment for her here but would be happy see her again if she is back in the area in the spring time. Current visit: No Status: Acute
[2018-03-15] MEDS: SODIUM CHLORIDE 0.9% 1,000 ML 500 ML IV (11:11)
[2018-03-15 11:17] LABS: Anisocytosis 1+; Polychromasia 2+
[2018-03-15] MEDS: DEXAMETHASONE 12 MG in SODIUM CHLORIDE 0.9% 50 ML 212 ML IV (11:38)
[2018-03-15] MEDS: FOSAPREPITANT 150 MG in SODIUM CHLORIDE 0.9% 150 ML 300 ML IV (11:58)
[2018-03-15] MEDS: ONDANSETRON 16 MG in SODIUM CHLORIDE 0.9% 50 ML 232 ML IV (12:33)
[2018-03-15] MEDS: GEMCITABINE IV (13:17)
[2018-03-15] MEDS: SODIUM CHLORIDE 0.9% IV (13:17)
[2018-03-15] MEDS: CISPLATIN IV (14:03)
[2018-03-15] MEDS: [UNRECOGNIZED DRUG - OTHER] IV (14:03)
[2018-03-15] MEDS: POTASSIUM CHLORIDE IV (14:03)
[2018-03-15] MEDS: MANNITOL IV (14:03)
[2018-03-17 15:14] LABS: Cancer (Carbohydrate) Ag 19-9 50 U/mL (< 34)
[2018-03-22 10:22] LABS: Hematocrit 31.3 % (36-46); Hemoglobin 10.3 g/dL (12.0-16.0); Mean Corpuscular HGB Conc 32.8 % (30-36); Mean Corpuscular Hemoglobin 30.9 PG (26-34); Mean Corpuscular Volume 94.2 fL (80-100); Platelet Count 229 X10^3/uL (150-400); Red Blood Cell Count 3.32 X10^6/uL (4.0-5.2); Red Cell Distribution Width 19.7 % (11.6-14.8); White Blood Cell Count 3.8 X10^3/uL (4.5-11.0)
[2018-03-22 10:23] LABS: Add Manual Diff / Slide Review YES
[2018-03-22 10:31] VITALS: BP 163/84; PULSE 70; RESP 18; TEMP 36.4; O2SAT 99
[2018-03-22] MEDS: SODIUM CHLORIDE 0.9% 1,000 ML 500 ML IV (10:40)
[2018-03-22 10:47] LABS: Neutrophils Absolute Manual 2090 /uL (3000-5900); Nucleated Red Blood Cells 2 #/Diff; Total Cells Counted 100
[2018-03-22 10:48] LABS: Anisocytosis 2+
[2018-03-22] MEDS: DEXAMETHASONE 12 MG in SODIUM CHLORIDE 0.9% 50 ML 212 ML IV (11:11)
[2018-03-22] MEDS: ONDANSETRON 16 MG in SODIUM CHLORIDE 0.9% 50 ML 232 ML IV (11:35)
[2018-03-22] MEDS: FOSAPREPITANT 150 MG in SODIUM CHLORIDE 0.9% 150 ML 300 ML IV (11:58)
[2018-03-22] MEDS: SODIUM CHLORIDE 0.9% IV (12:48)
[2018-03-22] MEDS: GEMCITABINE IV (12:48)
[2018-03-22] MEDS: POTASSIUM CHLORIDE IV (13:27)
[2018-03-22] MEDS: CISPLATIN IV (13:27)
[2018-03-22] MEDS: [UNRECOGNIZED DRUG - OTHER] IV (13:27)
[2018-03-22] MEDS: MANNITOL IV (13:27)
== END 2018-04-03 12:51 | disposition home or self-care (01) ==
PROVIDERS: Nurse Practitioner Gerontology; Family Provider Family Medicine; PCP Family Medicine; Referring Provider Family Medicine; Visit Provider Internal Medicine Hematology & Oncology
DX: C22.9 Malignant neoplasm of liver, not specified as primary or secondary (principal)
CPT/HCPCS: 36415; 36592; 71260; 74177; 80053; 82378; 82565; 83735; 84520; 85025; 86300; 86301; 96361; 96367; 96374; 96375; 96413; 96415; 96417; 99205; 99214; 99215; J1100; J1453; J2150; J2405; J2997; J3475; J3480; J9060; J9201